=== PATIENT | female | born 1985 | race Caucasian/White ===

== ENCOUNTER → 2019-12-18 12:31 | Outpatient (BNVA) | payer MEDICAID, SELFPAY | PROVIDERS: Family Provider Nurse Practitioner Family; PCP Nurse Practitioner Family; Visit Provider Anesthesiology Pain Medicine | DX: M25.511 Pain in right shoulder (principal) | CPT/HCPCS: 99203; 99999 ==

== ENCOUNTER 2020-07-24 10:08 | Emergency (ER) | payer MEDICAID, SELFPAY ==
[2020-07-24 10:14] VITALS: BP 122/70; PULSE 85; RESP 18; TEMP 36.9; O2SAT 100; BMI 23.2
--- NOTE | 2020-07-24 10:21 | ED_ITS ---
HPI - Syncope General: Chief Complaint: Syncope Stated Complaint: syncope, fatigue, Time Seen by Provider: 07/24/20 10:14 History of Present Illness: HPI narrative: Is a 37-year-old female who comes to the ED with positive at-home test, fatigue and a brief episode of near syncope. Patient last period was June 21. She said it was only 2 days long and had very light bleeding, which is not like her normal periods. She took a test around June 23 or and it was positive. Patient says she has taken 19 test over the last month and all have been positive. She has not seen her OB provider yet. She has had some intermittent abdominal cramping over the past couple days but no vaginal bleeding or discharge. She contacted her OB office and they told her that she could come in here to the ED to get evaluated. Patient also says she had an episode of near syncope couple days ago. Patient describes driving down the road in the car and she started getting sick feeling and felt like she was going to pass out she pulled over. Patient says she never had syncopal episode but did feel like one was coming on. She reports not eating very much food that days leading up to near syncopal episode. She has not had any other near syncopal episodes since then. She had some UTI symptoms over a week ago, but those have since resolved. Patient says she is worried and concerned about her and symptoms. Denies fever, chills, chest pain, shortness of breath, nausea, dysuria, hematuria, constipation, diarrhea. Patient endorses one episode of emesis over the last month. Associated symptoms: Reports abdominal pain (intermittent abdom cramping); Deny chest pain, fever(s), headache(s) or nausea Review of Systems Const: Denies: fever(s), chills or fatigue Eyes: Denies: change in vision or eye discomfort ENMT: Denies: throat pain, odynophagia, nasal discharge or nasal congestion Card: Denies: chest pain, palpitations, edema, swelling of feet/ankles, dyspnea on exertion or orthopnea Resp: Denies: dyspnea, productive cough or non-productive cough GI: Reports: abdominal pain (intermittent abdom cramping) and vomiting ( 1 episode); Denies: nausea, diarrhea, constipation or hematochezia : Reports: amenorrhea (last period was May 21.) and other (positive at [facility] test); Denies: flank pain, dysuria or hematuria Musc: Denies: neck pain, back pain or extremity swelling Skin/Breast: Denies: rash or new lesions Neuro: Denies: headache(s), numbness in extremities or weakness in extremities PFSH ED PFSH: Medical History Chronic shoulder pain History of reduction of closed fracture (~02/25/14) Closed Reduction and percutaneous internal fixation with 7.0 cannulated screws times 2, 02/25/2014, by Dr Koch Primary osteoarthritis, right shoulder Tendinopathy of right rotator cuff Family History Grandmother Hypertension PATERNAL Father Cancer Mother Heart disease Other Diabetes Social History Smoking and tobacco status: former smoker Alcohol intake: never History of recent travel: No Female Reproductive History: Date of last menstrual period: 06/21/20 Physical Exam Const: COMMON NORMALS: no acute distress, patient oriented x3, healthy appearing and alert GENERAL APPEARANCE: cooperative, comfortable and anxious (pt appeared very worried about and symptoms.) HENMT: COMMON NORMALS: normocephalic HEAD & SCALP: normocephalic MOUTH: Normal oral and palatal mucosa present THROAT: posterior oropharynx normal and uvula midline Neck/C-Spine: COMMON NORMALS: supple GENERAL: Yes normal visual inspection Resp: COMMON NORMALS: normal respiratory effort, No retractions, No use of accessory muscles and clear to auscultation bilaterally AUSCULTATION: clear to auscultation bilaterally Cardio: COMMON NORMALS: regular rate, regular rhythm, S1 normal heart sound present, S2 normal heart sound present, No gallops present (Cardio), No clicks present (Cardio), No murmurs present (Cardio) and Peripheral pulses 2+ throughout RATE: regular rate RHYTHM: regular rhythm HEART SOUNDS: S1 normal heart sound present and S2 normal heart sound present PERIPHERAL PULSES: Peripheral pulses 2+ throughout GI: COMMON NORMALS: Normal to inspection, nondistended, normoactive bowel sounds present, Soft to palpation, non-tender and no masses PALPATION: Yes Soft to palpation : COMMON NORMALS: Yes no CVA tenderness BLADDER/KIDNEY EXAM: Yes no CVA tenderness Back/Pelvis: COMMON NORMALS: no CVA tenderness Extremity: COMMON NORMALS: normal to inspection and no pedal edema Neuro: COMMON NORMALS: patient oriented x3 and moves all extremities SENSORIUM/ORIENTATION: Yes alert Skin: COMMON NORMALS: no rashes or lesions noted GENERAL SKIN EXAM: no rashes or lesions noted Course Vital Signs: Vital signs: Vital Signs Temperature 98.4 F 07/24/20 10:14 Pulse Rate 62 07/24/20 13:10 Respiratory Rate 14 07/24/20 13:10 Blood Pressure 116/73 07/24/20 13:10 Pulse Oximetry 99 07/24/20 13:10 MDM - Syncope MDM Narrative: Medical decision making narrative: Patient is a 37-year-old female comes to the ED with positive at home test and near syncopal episode. Patient's last period was on June 21. Patient describes having some intermittent abdominal pain but denies any vaginal bleeding or discharge. She also describes having a near syncopal episode where she felt sick and like she was going to pass out. Patient never had any loss of consciousness and has not had any other episodes since. She contacted Dr. Benjamin's office and told them about symptoms and positive test and they referred her to come to the ED to be evaluated. Patient appears in no acute distress or pain. She is very anxious and worried about this . White blood cell count 10.7 and rest of CBC, CMP and UA are unremarkable. hCG quant is 1853. EKG showed normal sinus rhythm with no ST segment elevation or depression seen. Ultrasound OB showed no definite intrauterine and recommends a follow-up ultrasound in 1 week and clinical evaluation to rule out ectopic . patient was discharged and told to call [facility] doctor's office to set up a follow-up appointment within the next week. I told patient that ultrasound radiologist recommended a follow-up ultrasound to be performed in a week to rule out any ectopic . I recommended that she get her hCG levels checked in another 3 days. Return to ED precautions given. Patient understood and agreed with plan. Lab Data: Attestation: I reviewed the patient's lab results. Labs: Lab Results 07/24/20 07/24/20 07/24/20 Range/Units 10:35 10:35 10:42 WBC 10.7 H (4.0-10.0) 10^3/ uL RBC 4.40 (4.1-5.3) 10^6/u L Hgb 12.8 (11.5-15.3) g/dL Hct 40.0 (37.0-47.0) % MCV 90.9 (81-99) fL MCH 29.1 (28.0-34.0) pg MCHC 32.0 (30.0-36.0) g/dL RDW 13.0 (12.1-15.1) % Plt Count 277 (130-400) 10^3/c mm MPV 9.4 (7.4-10.4) fL Neut % (Auto) 46.0 % Lymph % (Auto) 37.7 % Atlantic % (Auto) 8.7 % Eos % (Auto) 6.4 % Baso % (Auto) 0.7 % Neut # (Auto) 4.92 (1.8-7.7) 10^3/u L Lymph # (Auto) 4.0 (0.8-4.8) 10^3/u L Atlantic # (Auto) 0.9 (0.2-0.9) 10^3/u L Eos # (Auto) 0.7 (0.0-0.8) 10^3/u L Baso # (Auto) 0.1 (0.0-0.1) 10^3/u L Nucleated RBC % (a uto) 0 % Nucleated RBCs # 0.0 /100WBC Sodium 137 (136-145) mmol/L Potassium 4.1 (3.5-5.1) mmol/L Chloride 104 (98-107) mmol/L Carbon Dioxide 22 (22-29) mmol/L Anion Gap 15.1 (5-19) BUN 10 (6-20) mg/dL Creatinine 0.4 L (0.5-0.9) mg/dL GFR Calculation 177.7 H (90-130) mL/min Glucose 88 (65-115) mg/dL Calculated Osmolal ity 279 L (285-295) mOsm/k g Calcium 9.4 (8.5-10.5) mg/dL Total Bilirubin 0.2 (0.15-1.2) mg/dL AST 22 (0-32) U/L ALT 25 (0-33) U/L Alkaline Phosphata se 42 (35-105) IU/L Total Protein 6.6 (6.6-8.7) g/dL Albumin 4.2 (3.5-5.2) g/dL Globulin 2.4 (1.3-4.6) g/dL Ser , Alexis i-Qnt 1853.00 mIU/mL Urine Color Yellow (Yellow) Urine Appearance Clear (CLEAR) Urine pH 6 (5-7) Ur Specific Gravit y 1.020 (1.005-1.030) Urine Protein Neg (Negative) Urine Glucose (UA) Norm (Normal) Urine Ketones Negative (Negative) Urine Blood Neg (Negative) Urine Nitrate Negative (Negative) Urine Bilirubin Neg (Negative) Urine Urobilinogen Neg (Negative) mg/dL Ur Leukocyte Lucy ase Negative (Negative) Imaging Data^: US OB: Attestation: I personally reviewed and interpreted this imaging study as follows: Radiologist's impression: [place] [id number] Ultrasound Report Signed Patient: Jazmin Martinez Unit #: [id number] : 08/29/1982 Age/Sex: 37 / F ADM Date: 07/24/20 Loc: ER Room/Bed: Attending Dr: Ordering Provider/Ordering MD: Fortino Morrell Date of Service: 07/24/20 Procedure(s): US OB <=14 wk fetus w transvag Accession Number(s): [id number] Report Number: [id number] WS: [id number] OB ultrasound, 07/24/2020 Clinical Data: with abdominal cramping Comparison: None. Findings: The cervical length is 3.16 cm. There is not a definite interuterine . No pole or heart motion was identified.. There is a yolk sac or an 0.34 cm There is a possible gestational sac within the uterus measuring 0.91 x 0.95 x 1.43 cm. The left ovary measured 2.2 cm x 3.6 cm x 2.7 cm. There is a simple cyst in the left ovary measuring 0.90 x 1.30 x 1.30 cm. The right ovary measured 2.7 cm x 3.0 cm x 3.0 cm. There are 2 cysts in the right ovary, one measuring 0.97 x 1.16 x 1.36 cm and the other 1.52 x 1.65 x 1.90 cm. The smaller cyst has a slightly irregular wall which is thickened. There is a moderate amount of fluid in the cul-de-sac. US/US OB <=14 wk fetus w transvag Impression: No definite intrauterine and recommend follow-up ultrasound in one week and clinical evaluation to rule out ectopic . Dictated By: Silvina Oh MD Signed By: Silvina Oh MD Signed Date/Time: 07/24/20 1257 DD/ 1242 EKG Data^: EKG 1: Attestation: I personally reviewed and interpreted this EKG as follows: EKG interpretation date: 07/24/20 Interpretation: Normal sinus rhythm with some sinus arrhythmia present. [address] segment elevation or depression seen. Discharge Plan Discharge Patient Disposition: Home Clinical Impression: Vasovagal near syncope Qualifiers: Weeks of gestation: less than 8 weeks Qualified Code(s): Z3A.01 - Less than 8 weeks gestation of Condition: Stable Prescriptions: No Action 28 mg iron- 800 mcg Tablet 1 tab PO DAILY RF: 0 Discharge Orders: Discharge Order (Routine); Ordered 07/24/20 Ordered By: Fortino Morrell Referrals: Monse Vogt APN [Primary Care Provider] - Discharge Diet: Regular Discharge Activity: Increase activity as tolerated Patient Instructions: (ED), Diet (GEN) Activity Restrictions/Additional Instructions: Follow-up with mineral mixer in a week for repeat ultrasound. have hCG quant lab performed in 3 days to monitor progression of early . Continue taking vitamins. Return to the ER or your medical provider if condition worsens. Please read and understand discharge instructions. If any questions, please ask. Coding Level of Care Code ED Operator Cavity Pump for Chg Fwd Exam Comprehensive
[2020-07-24 10:24] VITALS: BP 126/85; PULSE 89; RESP 18; O2SAT 96
--- NOTE | 2020-07-24 10:30 | US_ITS ---
WS: [id number] OB ultrasound, 07/24/2020 Clinical Data: with abdominal cramping Comparison: None. Findings: The cervical length is 3.16 cm. There is not a definite interuterine . No pole or heart motion was identified.. There is a yolk sac or an 0.34 cm There is a possible gestational sac within the uterus measuring 0.9 1 x 0.95 x 1.43 cm. The left ovary measured 2.2 cm x 3.6 cm x 2.7 cm. There is a simple cyst in the left ovary measuring 0.90 x 1.30 x 1.30 cm. The right ovary measured 2.7 cm x 3.0 cm x 3.0 cm. There are 2 cysts in the right ovary, one measurin g 0.97 x 1.16 x 1.36 cm and the other 1.52 x 1.65 x 1.90 cm. The smaller cyst has a slightly irregula r wall which is thickened. There is a moderate amount of fluid in the cul-de-sac. US/US OB <=14 wk fetus w transvag Impression: No definite intrauterine and recommend follow-up ultrasound in one we ek and clinical evaluation to rule out ectopic .
--- NOTE | 2020-07-24 10:30 | ECG_ITS ---
[facility] Test Date: 2020-07-24 Pat Name: Jazmin Martinez Department: Room: Gender: Female Map Clerk: : 1982-08-29 Requested By: Fortino Morrell Order Number: [id number] Hebert MD: Oleg Barkley M.D. Measurements Intervals [place] Rate: 68 P: 55 FL: 141 QRS: 75 QRSD: 81 T: 42 QT: 358 QTc: 382 Interpretive Statements SINUS RHYTHM WITH SINUS ARRHYTHMIA No previous ECG available for comparison Electronically Signed On 07-24-2020 14:58:13 CDT by Oleg Barkley M.D. [id number]
--- NOTE | 2020-07-24 10:42 | PC.NURSE ---
States smells cause nausea, denies any and all pain. Very anxious, talks a lot.
[2020-07-24] MEDS: sodium chloride 0.9% 500 ML IV (10:47)
[2020-07-24 10:56] LABS: Basophils # 0.1 10^3/uL (0.0-0.1); Basophils % 0.7 %; Eosinophils # 0.7 10^3/uL (0.0-0.8); Eosinophils % 6.4 %; Hemoglobin 12.8 g/dL (11.5-15.3); Lymphocytes % 37.7 %; Mean Corpuscular Hemoglobin 29.1 pg (28.0-34.0); Mean Corpuscular Volume 90.9 fL (81-99); Mean Platelet Volume 9.4 fL (7.4-10.4); Monocytes # 0.9 10^3/uL (0.2-0.9); Monocytes % 8.7 %; Neutrophils # 4.92 10^3/uL (1.8-7.7); Nucleated Red Blood Cells % 0 %; Platelet Count 277 10^3/cmm (130-400); White Blood Count 10.7 10^3/uL (4.0-10.0)
[2020-07-24 11:03] LABS: Add Urine Microscopic? NO
[2020-07-24 11:20] LABS: Alanine Aminotransferase 25 U/L (0-33); Albumin Level 4.2 g/dL (3.5-5.2); Alkaline Phosphatase 42 IU/L (35-105); Aspartate Amino Transferase 22 U/L (0-32); Blood Urea Nitrogen 10 mg/dL (6-20); Calcium 9.4 mg/dL (8.5-10.5); Carbon Dioxide 22 mmol/L (22-29); Chloride 104 mmol/L (98-107); Creatinine Clr Calc Pharmacy 152.0165; Globulin 2.4 g/dL (1.3-4.6); Glomerular Filtration Rate 177.7 mL/min (90-130); Glucose 88 mg/dL (65-115); Osmolality Calculated 279 mOsm/kg (285-295); Sodium 137 mmol/L (136-145); Total Bilirubin 0.2 mg/dL (0.15-1.2); Total Protein 6.6 g/dL (6.6-8.7)
[2020-07-24 11:22] LABS: Anion Gap 15.1 (5-19); Potassium 4.1 mmol/L (3.5-5.1)
[2020-07-24 11:22] LABS: Bilirubin Urine Neg (Negative); Blood Urine Neg (Negative); Glucose Urine UA Norm (Normal); Ketones Urine Negative (Negative); Leukocyte Esterase Urine Negative (Negative); Nitrate Urine Negative (Negative); Protein Urine Neg (Negative); Urine Appearance Clear (CLEAR); Urine Color Yellow (Yellow); Urobilinogen Urine Neg (Negative); pH Urine 6 (5-7)
[2020-07-24 12:14] VITALS: BP 141/75; PULSE 73; RESP 14; O2SAT 100
[2020-07-24 13:10] VITALS: BP 116/73; PULSE 62; RESP 14; O2SAT 99
--- NOTE | 2020-07-27 14:51 | DCPLANNER ---
Admissions called case loader operator asking about order for a repeat HCG. Patient was at hospital for her repeat HCG levels, case loader operator did not have an order left for blood work. curriculum manager got an order signed and took the order to main admissions for patient to have blood work.
== END 2020-07-24 13:21 | disposition home or self-care (01) ==
PROVIDERS: Emergency Provider Physician Assistant; PCP Nurse Practitioner Family
DX: O26.891 Other specified pregnancy related conditions, first trimester (principal); R55 Syncope and collapse; Z3A.01 Less than 8 weeks gestation of pregnancy; Z87.891 Personal history of nicotine dependence
CPT/HCPCS: 12345; 76801; 76817; 80053; 81003; 84702; 85025; 93005; 96360; 99283; 99284; J7040

== ENCOUNTER 2020-07-27 14:53 | Outpatient (CLI) | payer MEDICAID, SELFPAY ==
[2020-07-27 16:29] LABS: HCG, Serum Qual Positive (Negative)
== END 2020-07-27 14:54 | disposition home or self-care (01) ==
LOC: LAB 14:56
PROVIDERS: Obstetrics & Gynecology; PCP Nurse Practitioner Family; Visit Provider Physician Assistant
DX: Z34.90 Encounter for supervision of normal pregnancy, unspecified, unspecified trimester (principal)
CPT/HCPCS: 84703

== ENCOUNTER → 2020-08-31 13:39 | Outpatient (BNVA) | payer MEDICAID, SELFPAY | PROVIDERS: PCP Nurse Practitioner Family; Visit Provider Obstetrics & Gynecology | DX: O09.521 Supervision of elderly multigravida, first trimester (principal); Z3A.01 Less than 8 weeks gestation of pregnancy | CPT/HCPCS: 80053; 80307; 84315; 84443; 85027; 86592; 86762; 86803; 86850; 86900; 87340; 87806 ==

== ENCOUNTER → 2020-09-16 10:38 | Outpatient (BNVA) | payer MEDICAID, SELFPAY | PROVIDERS: PCP Nurse Practitioner Family; Visit Provider Obstetrics & Gynecology | DX: Z34.90 Encounter for supervision of normal pregnancy, unspecified, unspecified trimester (principal) | CPT/HCPCS: 84315; 87491; 87522; 87591; 88175 ==

== ENCOUNTER → 2020-10-14 13:06 | Outpatient (BNVA) | payer MEDICAID, SELFPAY | PROVIDERS: PCP Nurse Practitioner Family; Visit Provider Nurse Practitioner Women's Health | DX: O99.340 Other mental disorders complicating pregnancy, unspecified trimester (principal); F32.9 Major depressive disorder, single episode, unspecified; O09.521 Supervision of elderly multigravida, first trimester | CPT/HCPCS: 82105; 84315 ==

== ENCOUNTER → 2020-11-23 16:00 | Outpatient (BNVA) | payer MEDICAID, SELFPAY | PROVIDERS: PCP Nurse Practitioner Family; Visit Provider Obstetrics & Gynecology | DX: O09.892 Supervision of other high risk pregnancies, second trimester (principal) | CPT/HCPCS: 76805 ==

== ENCOUNTER → 2020-11-30 15:49 | Outpatient (BNVA) | payer MEDICAID, SELFPAY | PROVIDERS: PCP Nurse Practitioner Family; Visit Provider Obstetrics & Gynecology | DX: O99.612 Diseases of the digestive system complicating pregnancy, second trimester (principal); K21.9 Gastro-esophageal reflux disease without esophagitis | CPT/HCPCS: 80053; 84315 ==

== ENCOUNTER → 2021-01-08 14:30 | Outpatient (BNVA) | payer MEDICAID, SELFPAY | PROVIDERS: PCP Nurse Practitioner Family; Visit Provider Obstetrics & Gynecology | DX: O09.892 Supervision of other high risk pregnancies, second trimester (principal); Z3A.00 Weeks of gestation of pregnancy not specified | CPT/HCPCS: 82950; 84315; 85027 ==

== ENCOUNTER → 2021-02-05 12:09 | Outpatient (BNVA) | payer MEDICAID, SELFPAY | PROVIDERS: PCP Nurse Practitioner Family; Visit Provider Obstetrics & Gynecology | DX: O09.893 Supervision of other high risk pregnancies, third trimester (principal); Z87.59 Personal history of other complications of pregnancy, childbirth and the puerperium; Z3A.00 Weeks of gestation of pregnancy not specified | CPT/HCPCS: 83986; 84315 ==

== ENCOUNTER → 2021-02-19 08:18 | Outpatient (BNVA) | payer MEDICAID, SELFPAY | PROVIDERS: PCP Nurse Practitioner Family; Visit Provider Obstetrics & Gynecology | DX: O09.893 Supervision of other high risk pregnancies, third trimester (principal); L29.9 Pruritus, unspecified; O99.713 Diseases of the skin and subcutaneous tissue complicating pregnancy, third trimester | CPT/HCPCS: 82239; 84315 ==

== ENCOUNTER → 2021-03-01 11:20 | Outpatient (BNVA) | payer MEDICAID, SELFPAY | PROVIDERS: PCP Nurse Practitioner Family; Visit Provider Obstetrics & Gynecology | DX: O09.893 Supervision of other high risk pregnancies, third trimester (principal); Z3A.00 Weeks of gestation of pregnancy not specified | CPT/HCPCS: 84315; 87081 ==

== ENCOUNTER 2021-03-19 12:57 | Inpatient (IN) | payer MEDICAID, SELFPAY ==
[2021-03-19] VITALS (20 sets, daily range): BP systolic 134–175; BP diastolic 68–90; PULSE 48–82; RESP 16–20; TEMP 36.6–36.8; BMI 22.6
--- NOTE | 2021-03-19 13:30 | PC.NURSE ---
Verbal permission to give her mother an update that she and the baby were stable post delivery. Permission given by patient. Stacy Luo RN was witness.
--- NOTE | 2021-03-19 13:35 | P.PCNOB_ITS ---
Delivery Note: Date of delivery: March 19, 2021 Procedure: Precipitous Op report anesthesia: None Delivering Physician: Alexy Estimated blood loss (mL): 20 Delivery: The patient had complete cervical dilation and began to push. The head delivered in the MARNIE position over an intact perineum under no anesth esia. The nose and mouth were bulb suctioned. The shoulders and body delivered atraumatically. The baby was placed onto the mother's abdomen. The cord was clamped and cut. Cord blood was obtained. The placenta delivered spontaneously. It was inspected and found to be intact. Inspection of the perineum revealed bilateral periurethral lacerations and a second-degree perineal laceration. Estimated blood loss 20 mL. Apgars on baby were 8 at 1 minute and 8 at 5 minutes. Weight of baby is 6 pounds 4 ounces. Mother was stable post delivery. Baby was requiring oxygen. The patient had a precipitous delivery and received NO doses of antibiotics. She is GBS +. Coding Level of Care Code Acute Needle Punch Machine Operator for Kanwal Diaz
[2021-03-19] MEDS: oxytocin 30 UNIT/500 ML BAG 600 UNIT IV (13:52)
[2021-03-19] MEDS: ketorolac 30 mg/mL INJ 60 MG IM (13:56)
[2021-03-19 14:19] LABS: Basophils # 0.1 10^3/uL (0.0-0.1); Basophils % 0.7 %; Eosinophils # 0.2 10^3/uL (0.0-0.8); Eosinophils % 1.3 %; Hematocrit 42.3 % (37.0-47.0); Hemoglobin 13.9 g/dL (11.5-15.3); Lymphocytes # 3.6 10^3/uL (0.8-4.8); Lymphocytes % 23.1 %; Mean Corpuscular HGB Conc 32.9 g/dL (30.0-36.0); Mean Corpuscular Hemoglobin 26.9 pg (28.0-34.0); Monocytes % 6.4 %; Neutrophils % 67.6 %; Nucleated Red Blood Cells % 0 %; Platelet Count 351 10^3/cmm (130-400); Red Blood Count 5.16 10^6/uL (4.1-5.3); Red Cell Distribution Width 13.5 % (12.1-15.1); White Blood Count 15.6 10^3/uL (4.0-10.0)
[2021-03-19 14:31] LABS: Amphetamines Screen Urine Negative (Negative); Barbiturates Screen Urine Negative (Negative); Benzodiazepines Screen Urine Negative (Negative); Cocaine Screen Urine Negative (Negative); Opiate Screen Urine Positive (Negative); PCP Screen Urine Negative (Negative); THC Screen Urine Positive (Negative)
[2021-03-19] MEDS: HYDROcodone-acetaminophen 5-325 mg Tablet PO ×2 (15:27→21:11)
--- NOTE | 2021-03-19 15:51 | PC.NURSE ---
Initial IV started in triage by SAHARA Schwartz. Infiltrated with pitocin bolus. Fluids stopped and IV removed. IV replaced by Dr Horne. IV site secured well with tape and coban.
[2021-03-19] MEDS: LORazepam 0.5 mg Tablet 0.25 MG PO (16:12)
[2021-03-19] MEDS: lidocaine 2% INJ 20 mL INJECTION (16:30)
[2021-03-19] MEDS: docusate sodium 100 mg Capsule PO (17:27)
[2021-03-19] MEDS: benzocaine-menthol 78 gm Canister 1 SPRAY TOPICAL (17:27)
--- NOTE | 2021-03-19 18:41 | PC.NURSE ---
pt ambulated to room OB10. oriented to room/call light
[2021-03-19] MEDS: ibuprofen 800 mg tablet PO (21:11)
[2021-03-20] VITALS: BP 150/70; PULSE 80; RESP 16; TEMP 36.8
[2021-03-20 05:00] VITALS: BP 160/70; PULSE 71; RESP 16
[2021-03-20] MEDS: LORazepam 0.5 mg Tablet 0.25 MG PO ×3 (05:18→22:00)
[2021-03-20] MEDS: HYDROcodone-acetaminophen 5-325 mg Tablet PO ×2 (05:18→22:00)
[2021-03-20 05:32] LABS: Hematocrit 33.6 % (37.0-47.0); Hemoglobin 10.5 g/dL (11.5-15.3); Mean Corpuscular HGB Conc 31.3 g/dL (30.0-36.0); Mean Corpuscular Hemoglobin 26.7 pg (28.0-34.0); Mean Corpuscular Volume 85.5 fL (81-99); Mean Platelet Volume 9.9 fL (7.4-10.4); Platelet Count 312 10^3/cmm (130-400); Red Blood Count 3.93 10^6/uL (4.1-5.3); Red Cell Distribution Width 13.5 % (12.1-15.1); White Blood Count 13.5 10^3/uL (4.0-10.0)
[2021-03-20 06:25] VITALS: BP 149/75
[2021-03-20 10:15] VITALS: BP 158/84; PULSE 59; RESP 17
[2021-03-20] MEDS: prenatal vitamin Capsule 1 CAP PO (10:15)
[2021-03-20] MEDS: ibuprofen 800 mg tablet PO ×3 (10:15→21:05)
[2021-03-20] MEDS: docusate sodium 100 mg Capsule PO ×2 (10:15→18:23)
--- NOTE | 2021-03-20 14:04 | P.PN_ITS ---
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 No concerns. Her blood pressures have been very labile. She was taking xanax previously that was not hers as well as hydrocodone. I have been giving her Ativan while in the hospital and her blood pressures are controlled with that. She has a strong history of anxiety, but was taking a family members medication. Labor: Station: +3 Amniotic Membrane Status: Intact Vitals/I&O/Wt Last Vital Signs Temp 98.2 F 03/20/21 00:00 Pulse 59 L 03/20/21 10:15 Resp 17 03/20/21 10:15 BP 158/84 03/20/21 10:15 03/19/21 03/20/21 03/20/21 22:59 06:59 14:59 Intake Total 700 / 700 Output Total 400 / 400 Balance 300 / 300 Weight last 48 hrs Weight 120 lb Physical Exam Const: COMMON NORMALS: no acute distress, average body habitus, patient oriented x3, no limitations, healthy appearing, alert and well nourished GENERAL APPEARANCE: cooperative, comfortable, well kempt and well developed ORIENTATION/CONSCIOUSNESS: Yes awake, Yes oriented to person, Yes oriented to place and Yes oriented to time Resp: COMMON NORMALS: normal respiratory effort EFFORT & INSPECTION: Yes able to speak in complete sentences GI: COMMON NORMALS: Soft to palpation and non-tender PALPATION: Yes Soft to palpation Extremity: COMMON NORMALS: no clubbing, cyanosis or edema Neuro: COMMON NORMALS: patient oriented x3 SENSORIUM/ORIENTATION: Yes alert, Yes oriented to person, Yes oriented to place and Yes oriented to time Psych: APPEARANCE: Yes well kempt Data : 03/20/21 05:20 A&P Assessment and plan (1) Multigravida of advanced maternal age: PPD#1 Patient is doing well. DFS has been to see her and they are making a plan for her to keep her children. plan to continue with ativan to control anxiety and therefore control blood pressure Status: Acute Qualifiers: Trimester: first trimester Qualified Code(s): O09.521 - Supervision of elderly multigravida, first trimester (2) Depression affecting : Status: Acute (3) Hepatitis C: Status: Acute Qualifiers: Viral hepatitis chronicity: acute Hepatic coma status: without hepatic coma Qualified Code(s): B17.10 - Acute hepatitis C without hepatic coma (4) Viral hepatitis complicating : Status: Acute Qualifiers: Trimester: second trimester Qualified Code(s): O98.412 - Viral hepatitis complicating , second trimester (5) Supervision of other high risk pregnancies, third trimester: Status: Acute (6) Group B Streptococcus carrier state affecting : Status: Acute Attestations Medical Necessity Statement*: The patient is . She will be spending two midnights in the hospital. Coding Level of Care Code Acute Senior Systems Engineer for g Fwd Diagnoses Multigravida of advanced maternal age O09.521 Trimester: first trimester Depression affecting O99.340; F32.9 Hepatitis C B17.10 Viral hepatitis chronicity: acute Hepatic coma status: without hepatic coma Viral hepatitis complicating O98.412 Trimester: second trimester Supervision of other high risk pregnancies, third trimester O09.893 Group B Streptococcus carrier state affecting O99.820
[2021-03-20 16:20] VITALS: BP 155/73; PULSE 54; RESP 14; TEMP 36.4
[2021-03-20 21:00] VITALS: BP 151/72; PULSE 64; RESP 18; TEMP 36.7
[2021-03-21] VITALS (11 sets, daily range): BP systolic 149–197; BP diastolic 79–95; PULSE 54–88; RESP 15–17; TEMP 36.8
[2021-03-21] MEDS: LORazepam 0.5 mg Tablet 0.25 MG PO (04:24)
[2021-03-21] MEDS: HYDROcodone-acetaminophen 5-325 mg Tablet PO (04:24)
[2021-03-21 04:47] LABS: Basophils # 0.1 10^3/uL (0.0-0.1); Basophils % 0.7 %; Eosinophils # 0.5 10^3/uL (0.0-0.8); Eosinophils % 3.6 %; Hematocrit 32.2 % (37.0-47.0); Hemoglobin 10.5 g/dL (11.5-15.3); Lymphocytes # 5.1 10^3/uL (0.8-4.8); Lymphocytes % 37.7 %; Mean Corpuscular HGB Conc 32.6 g/dL (30.0-36.0); Mean Corpuscular Hemoglobin 27.9 pg (28.0-34.0); Mean Corpuscular Volume 85.4 fL (81-99); Mean Platelet Volume 10.2 fL (7.4-10.4); Monocytes # 0.8 10^3/uL (0.2-0.9); Monocytes % 6.2 %; Neutrophils # 6.78 10^3/uL (1.8-7.7); Neutrophils % 50.2 %; Nucleated Red Blood Cells % 0 %; Platelet Count 367 10^3/cmm (130-400); Red Blood Count 3.77 10^6/uL (4.1-5.3); Red Cell Distribution Width 13.8 % (12.1-15.1); White Blood Count 13.5 10^3/uL (4.0-10.0)
[2021-03-21 05:09] LABS: Slide Review Slide Review Perform
[2021-03-21 05:12] LABS: Urine Creatinine 34 mg/dL (28-217); Urine Protein Random 9 mg/dL
[2021-03-21 05:13] LABS: UPRO/UCREAT Ratio 0.26 mg/mg CR
[2021-03-21 05:14] LABS: Add Urine Microscopic? YES; Bilirubin Urine Neg (Negative); Blood Urine 3+ (Negative); Glucose Urine UA Norm (Normal); Ketones Urine Negative (Negative); Leukocyte Esterase Urine Negative (Negative); Nitrate Urine Negative (Negative); Protein Urine Neg (Negative); Specific Gravity, Urine 1.015 (1.005-1.030); Urine Appearance Clear (CLEAR); Urine Color Yellow (Yellow); Urobilinogen Urine Norm (Negative); pH Urine 7 (5-7)
[2021-03-21 05:15] LABS: Add Urine Culture? No; Bacteria Urine TRACE /hpf; RBC Urine >100 /hpf (0-2); Squamous Epithelial Cell Urine 15-25 /hpf (0-5); WBC Urine 0-4 /hpf (0-5)
[2021-03-21 05:15] LABS: Alkaline Phosphatase 91 IU/L (35-105); Blood Urea Nitrogen 8 mg/dL (6-20); Calcium 8.4 mg/dL (8.5-10.5); Carbon Dioxide 24 mmol/L (22-29); Chloride 105 mmol/L (98-107); Globulin 2.8 g/dL (1.3-4.6); Glomerular Filtration Rate 179.6 mL/min (90-130); Glucose 91 mg/dL (65-115); Osmolality Calculated 288 mOsm/kg (285-295); Sodium 140 mmol/L (136-145); Total Bilirubin 0.2 mg/dL (0.15-1.2); Total Protein 5.8 g/dL (6.6-8.7); Uric Acid 5.4 mg/dL (2.4-5.7)
[2021-03-21 05:41] LABS: Anion Gap 15.1 (5-19); Potassium 4.1 mmol/L (3.5-5.1)
--- NOTE | 2021-03-21 05:53 | ECG_ITS ---
[facility] Test Date: 2021-03-21 Pat Name: Jazmin Martinez Department: Room: OB10 Gender: Female Acoustical Installer: shanthi CRONIN: 1985 Requested By: Liyah Purcell Order Number: [id number] Anup MD: Becca Corrales M.D. Measurements Intervals [place] Rate: 43 P: 18 NM: 131 QRS: 63 QRSD: 77 T: 55 QT: 431 QTc: 368 Interpretive Statements SINUS BRADYCARDIA Compared to ECG 07/24/2020 10:35:26 Sinus rhythm no longer present Sinus arrhythmia no longer present Electronically Signed On 03-21-2021 11:40:27 CDT by Becca Corrales M.D. [id number]
[2021-03-21 05:55] LABS: Aspartate Amino Transferase 21 U/L (0-32)
[2021-03-21 06:06] LABS: Alanine Aminotransferase 14 U/L (0-33)
[2021-03-21 06:23] LABS: Troponin(5th) Baseline 6 ng/L (0-10)
[2021-03-21 06:47] LABS: Troponin 5 2HR 7.91 ng/L (0-10); Troponin 5 2HR Delta 1.91 ABS# (0-10)
[2021-03-21] MEDS: hyDRALAzine 20 mg/mL INJ 1 mL 5 MG IVP ×2 (06:49→07:43)
--- NOTE | 2021-03-21 07:03 | USCV_ITS ---
Jazmin Martinez Age: 35 Gender: F : 1985 Exam Date: 03/21/2021 09:15 Ordering Phys: Nereyda Issa MD Technologist: SABRINA Exam Location: [facility] [place] Indication: hypertension, bradycardia, chest pain BP: 177 / 88 HR: 58 Rhythm: Sinus Technical Quality: Technically difficult study MEASUREMENTS (Male / Female) Normal Values 2D ECHO LV Diastolic Diameter PLAX 4.2 cm 4.2 - 5.9 / 3.9 - 5.3 cm LV Systolic Diameter PLAX 2.9 cm LV Chamber Size 4.2 cm IVS Diastolic Thickness 1.2 cm 0.6 - 1.0 / 0.6 - 0.9 cm IVS Systolic Thickness 1.4 cm LVPW Diastolic Thickness 1.0 cm 0.6 - 1.0 / 0.6 - 0.9 cm LVPW Systolic Thickness 1.2 cm RV Chamber Size 3.0 cm LVOT Diameter 1.6 cm LV Ejection Fraction 2D Teich 60.3 % LV Ejection Fraction MOD 2C 58.2 % LV Ejection Fraction 2C AL 60.6 % LA Diameter 2.5 cm LA Width 2.7 cm LA Height 5.0 cm RA Width 3.3 cm RA Height 5.4 cm Aorta at Sinotubular Diameter 2.0 cm M-MODE LV Diastolic Diameter MM 4.1 cm 4.2 - 5.9 / 3.9 - 5.3 cm LV Systolic Diameter MM 2.2 cm LV Ejection Fraction MM Teich 77.8 % IVS Diastolic Thickness MM 1.2 cm 0.6 - 1.0 / 0.6 - 0.9 cm IVS Systolic Thickness MM 1.6 cm LVPW Diastolic Thickness MM 1.3 cm 0.6 - 1.0 / 0.6 - 0.9 cm LVPW Systolic Thickness MM 1.6 cm RV Diastolic Diameter MM 3.2 cm Aortic Annulus Diameter 2.7 cm LA Ao Ratio MM 1.2 DOPPLER AV Peak Velocity 149.0 cm/s LVOT Peak Velocity 121.0 cm/s AV Area Cont Eq vti 1.7 cm squared AV Area Cont Eq pk 1.7 cm squared MV Area PHT 4.1 cm squared Mitral E to A Ratio 1.4 MV E' Velocity 62.5 cm/s Mitral E to MV E' Ratio 6.5 Mitral E to LV E' Lateral Ratio 5.7 Mitral E to LV E' Septal Ratio 7.7 TV Peak E Velocity 53.0 cm/s Right Atrial Pressure 8.0 mmHg PV Peak Velocity 80.0 cm/s RV Acceleration Time 0.1 s RV Ejection Time 0.3 s RV AcT/ET 0.4 FINDINGS Left Ventricle Normal left ventricular size, systolic function and wall thickness, with no regional wall motion abnormalities. Left ventricular ejection fraction is estimated at 65-70 %. Normal diastolic function. Right Ventricle Normal right ventricular size and systolic function. RVSP could not be calculated due to incomplete tricuspid regurgitation velocity profile. Right Atrium Normal right atrial size. Right atrial pressure estimated at 3 mm Hg. Left Atrium Normal left atrial size. Mitral Valve Structurally normal mitral valve. No mitral valve stenosis. No mitral valve regurgitation. Aortic Valve Aortic valve not well visualized. Probably trileaflet aortic valve. No aortic valve stenosis. No aortic valve regurgitation. Tricuspid Valve Structurally normal tricuspid valve. No tricuspid valve stenosis. Trace tricuspid valve regurgitation. Pulmonic Valve Structurally normal pulmonic valve. No pulmonary valve stenosis. No pulmonary valve regurgitation. Pericardium No pericardial effusion. Aorta Normal size aortic root and proximal ascending aorta. Normal sized inferior vena cava with normal respiratory variations. CONCLUSIONS 1. Normal left ventricular size, systolic function and wall thickness, with no regional wall motion abnormalities. Left ventricular ejection fraction is estimated at 65-70 %. Normal diastolic function. 2. Normal right ventricular size and systolic function. 3. No significant valvular abnormality. 4. No pericardial effusion. 5. No prior similar studies to compare. Becca Corrales MD (Electronically Signed) Final Date: 21 Mar 2021 10:11 S
--- NOTE | 2021-03-21 07:15 | PC.NURSE ---
Spoke to patient regarding transfer to CSU. Advised that she was being transferred to CSU due to high blood pressure, bradycardia and chest pain. Advised patient that baby would be kept in nursery with RN until she was cleared and able to return to the OB unit. Patient very tearful, states that No. I am not going. I am not leaving my baby. Asked patient is FOB could come back and stay in room with baby. Mother stated I don't even know. I don't want him or my family knowing any of this. I don't want to worry them, we aren't even that close. I'm not leaving my baby. Explained that we were concerned about her health and wanted to ensure she was ok. Patient states no I can't do this right now. I'm not leaving my baby. Asked if patient would allow tests to still be ran and physician's to consult and patient states that I don't know. I don't know right now. Encouraged patient to think about it and reiterated that we only wanted to ensure that she was ok and that her heart was healthy.
[2021-03-21 07:28] LABS: Magnesium 1.7 mg/dL (1.7-2.3)
--- NOTE | 2021-03-21 07:35 | CTR_ITS ---
PROCEDURE INFORMATION: Exam: CTA Chest Without And With Contrast Exam date and time: 03/21/2021 7:35 AM Age: 35 years old Clinical indication: Chest pain; Other: Back pain; Patient HX: Had baby 2 days ago; Additional info: HTN and back pain TECHNIQUE: Imaging protocol: Computed tomographic angiography of the chest without and with contrast. 3D rendering (Not supervised by radiologist): MIP and/or 3D reconstructed images were created by the technologist. Radiation optimization: All CT scans at this facility use at least one of these dose optimization techniques: automated exposure control; mA and/or kV adjustment per patient size (includes targeted exams where dose is matched to clinical indication); or iterative reconstruction. Contrast material: OMNI 350; Contrast volume: 95 ml; Contrast route: INTRAVENOUS (IV); COMPARISON: No relevant prior studies available. RADIATION DOSE METRICS: Total DLP (mGy-cm): 1042.34 FINDINGS: Pulmonary arteries: Normal. No pulmonary emboli. Aorta: Unremarkable. No aortic aneurysm. No aortic dissection. Lungs: Unremarkable. No consolidation. No masses. Pleural spaces: Unremarkable. No pneumothorax. No pleural effusion. Heart: Unremarkable. No cardiomegaly. No pericardial effusion. Lymph nodes: Unremarkable. No enlarged lymph nodes. Bones/joints: Mild chronic degenerative changes in the spine. Soft tissues: Bilateral breast implants. IMPRESSION: 1. No evidence of pulmonary embolus or aortic aneurysm/dissection. 2. No acute abnormalities are seen in the chest. PROCEDURE INFORMATION: Exam: CT Angiography Abdomen Without And With Contrast Exam date and time: 03/21/2021 7:35 AM Age: 35 years old Clinical indication: Chest pain; Other: Back pain; Patient HX: Had baby 2 days ago; Additional info: HTN and back pain TECHNIQUE: Imaging protocol: Computed tomographic angiography images of the abdomen without and with intravenous contrast material, including non-contrast images if performed. 3D rendering (Not supervised by radiologist): MIP and/or 3D reconstructed images were created by the technologist. Radiation optimization: All CT scans at this facility use at least one of these dose optimization techniques: automated exposure control; mA and/or kV adjustment per patient size (includes targeted exams where dose is matched to clinical indication); or iterative reconstruction. Contrast material: OMNI 350; Contrast volume: 95 ml; Contrast route: INTRAVENOUS (IV); COMPARISON: No relevant prior studies available. RADIATION DOSE METRICS: Total DLP (mGy-cm): 1042.34 FINDINGS: Aorta: No aortic aneurysm. No aortic dissection. Celiac trunk and mesenteric arteries: No occlusion or significant stenosis. Renal arteries: No occlusion or significant stenosis. Liver: Normal. No mass. Gallbladder and bile ducts: Normal. No calcified stones. No ductal dilation. Pancreas: Normal. No ductal dilation. Spleen: Normal. No splenomegaly. Adrenals: Normal. No mass. Kidneys and ureters: Normal. No hydronephrosis. Stomach and bowel: There is prominence of the amount of stool in the colon consistent with constipation. There is no evidence of bowel obstruction or dilatation. Lymph nodes: Unremarkable. No enlarged lymph nodes. Intraperitoneal space: Unremarkable. No free air. No significant fluid collection. Reproductive: The uterus is enlarged consistent with the state. Bones/joints: Unremarkable. No acute fracture. No dislocation. Soft tissues: Unremarkable. CT/CT angio chest abdomen IMPRESSION: 1. Enlarged uterus. 2. Prominent amount of stool in the colon. 3. No acute abnormalities are seen in the abdomen. Normal arteriogram. Radiation Dose CTDIVOL = (mGy): DLP = 1042.34~1042.34 (mGy-cm)
[2021-03-21 07:49] LABS: Thyroid Stimulating Hormone 3.07 uIU/mL (0.27-4.20)
--- NOTE | 2021-03-21 08:01 | ECG_ITS ---
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 Measurements Intervals [place] Rate: 61 P: 59 CO: 134 QRS: 62 QRSD: 74 T: 47 QT: 386 QTc: 392 Interpretive Statements SINUS RHYTHM POSSIBLE LEFT ATRIAL ENLARGEMENT [-0.1mV P WAVE IN V1/V2] Compared to ECG 03/21/2021 06:15:22 Sinus bradycardia no longer present Electronically Signed On 03-21-2021 12:18:43 CDT by Becca Corrales M.D. [id number]
[2021-03-21] MEDS: iohexol 350 mg/mL 100 mL Btl IV (08:03)
--- NOTE | 2021-03-21 08:36 | PC.NURSE ---
in room with pt at the beside
[2021-03-21 08:48] LABS: D Dimer <= 0.27 ug/mIFEU (0-0.59)
--- NOTE | 2021-03-21 09:03 | PM.OBGYPN ---
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 I received a call from the nurse at approximately 0500 hours. She had performed the patient vitals signs. The patient was asleep and her blood pressure was 189/83. She had last received ativan about 6 hours prior. Additionally, the patient was complaining of chest pain. Her O2 saturation was 95-99 and she denied SOA. Preeclampsia labs were performed as well as an EKG, spiral CT and cardiac enzymes. The patient's pulse was 43. She was given two doses of hydralazine and her blood pressure was 140's/80's. A cardilogy consult as well as hospitalist consult was obtained. A cardiac echo was ordered as well as TSH. She was to be transferred to telemetry, however, the patient refused to leave her baby. Initially, she was refusing the cardiac echo, but said that she would let them perform it. The baby is having significant withdrawl symptoms and will most likely be transferred to [place]. The patient has stated that she will NOT stay to be treated or monitored. She will leave [place] when her baby leaves. She will seek treatment at the same hospital as her baby. I tried reasoning with the patient that we were trying to do what was best for her. She still refused. She has been tolerating a regular diet, ambulating, voiding and is doing well from a standpoint. The cardiac issues are the only problem currently. Labor: Station: +3 Amniotic Membrane Status: Intact Vitals/I&O/Wt Last Vital Signs Temp 98.2 F 03/21/21 04:50 Pulse 54 L 03/21/21 04:50 Resp 15 03/21/21 04:50 BP 197/95 03/21/21 06:20 Weight last 48 hrs Weight 120 lb Physical Exam Const: COMMON NORMALS: average body habitus, patient oriented x3, no limitations, healthy appearing, alert and well nourished GENERAL APPEARANCE: well kempt, well developed, anxious and combative ORIENTATION/CONSCIOUSNESS: Yes awake, Yes oriented to person, Yes oriented to place and Yes oriented to time OTHER: The patient is agitated and being obstinate, not appreciating the consequences of what is possibly going on. She is not comprehending the potential seriousness of this situation. Neck/C-Spine: COMMON NORMALS: full ROM and supple Resp: COMMON NORMALS: normal respiratory effort EFFORT & INSPECTION: Yes able to speak in complete sentences GI: COMMON NORMALS: Soft to palpation and non-tender PALPATION: Yes Soft to palpation Extremity: COMMON NORMALS: no clubbing, cyanosis or edema Neuro: COMMON NORMALS: patient oriented x3 SENSORIUM/ORIENTATION: Yes alert, Yes oriented to person, Yes oriented to place and Yes oriented to time Psych: COMMON NORMALS: speech normal APPEARANCE: Yes grossly normal and Yes well kempt ATTITUDE: Yes uncooperative, Yes Belligerent attititude/behavior present and Yes agitated ACTIVITY/MOTOR BEHAVIOR: Yes appropriate eye contact and Yes restless SPEECH: Yes normal speech MOOD & AFFECT: Yes anxious THOUGHT PROCESS: Illogical thought process present THOUGHT CONTENT: Yes Normal thought content present ATTENTION/CONCENTRATION: Yes attention grossly intact and Yes concentration grossly intact INSIGHT: Poor insight present (Psych) JUDGEMENT: Fair judgement present (Psych) Data : 03/21/21 04:20 03/21/21 04:20 A&P Assessment and plan (1) Multigravida of advanced maternal age: Patient is doing well as far as a standpoint. Status: Acute Qualifiers: Trimester: first trimester Qualified Code(s): O09.521 - Supervision of elderly multigravida, first trimester (2) Bradycardia: cardiology and hospitalist consult patient refuses telemetry cardiac echo ordered. 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
--- NOTE | 2021-03-21 09:17 | PC.NURSE ---
pt inquiring where is at and if she could talk to him, educated he is not button sewer and Dr. Purcell is button sewer to take care of her.
--- NOTE | 2021-03-21 09:42 | P.DS_ITS ---
Discharge Providers Date of Admission: 03/19/21 12:57 Date of Discharge: March 21, 2021 Attending Provider at Admission: Liyah Purcell MD Attending Provider at Discharge: Liyah Purcell MD Primary Care Provider: Monse Vogt APN Diagnoses at Discharge Discharge Diagnosis (1) Multigravida of advanced maternal age: Status: Acute Qualifiers: Trimester: first trimester Qualified Code(s): O09.521 - Supervision of elderly multigravida, first trimester (2) Bradycardia: Status: Acute (3) Hypertension: Status: Acute (4) Supervision of other high risk pregnancies, third trimester: Status: Acute (5) Hepatitis C: Status: Acute Permanent problem details: Diagnosed in 2013 during . Qualifiers: Hepatic coma status: without hepatic coma Viral hepatitis chronicity: acute Qualified Code(s): B17.10 - Acute hepatitis C without hepatic coma Reason for Visit Reason for Visit: Abdominal pain Hospital Course Hospital Course The patient was admitted in active labor. She admitted to using xanax and norco during the that were not her own prescription. She was started on norco for pain and ativan for anxiety and to assure no withdrawl from either. On PPD#2, the patient had several blood pressures in the severe range as well as bradycardia at 43 and complaints of chest pain. She had preeclampsia labs, which were normal. Tsh was normal. EKG was mildly and non-specifically abnormal. She had a normal cardiac echo. She had a normal spiral CT. scan. The hospitalist and cardiology were consulted. The patient was to be moved to telemetry, however, the patient refused. She refused to be managed here, as her baby was being transferred due to withdrawl. The patient signed out AMA to go to [place] with her baby. She was started on amlodipine daily to manage her blood pressure. Discharge Data Data Completed and Pending: Completed Studies During Hospitalization Category Date Time Status CT angio chest ab domen Stat Cat Scan 03/21/21 07:35 Completed Pending at discharge Category Date Time Status Arterial Blood Ga s W/O Coox Stat Lab 03/21/21 09:07 Received Thyroid Stimulati ng Hormone Routine Lab 03/21/21 09:12 Ordered Troponin(5th) 6 h our. Timed Lab 03/21/21 10:20 Ordered CV echo complete* [id number] Stat Ultrasound 03/21/21 07:03 Ordered Labs from last 24 hours 03/21/21 03/21/21 03/21/21 09:07 08:21 06:20 WBC RBC Hgb Hct MCV MCH MCHC RDW Plt Count MPV Neut % (Auto) Lymph % (Auto) [place] % (Auto) Eos % (Auto) Baso % (Auto) Neut # (Auto) Lymph # (Auto) [place] # (Auto) Eos # (Auto) Baso # (Auto) Nucleated RBC % (a uto) Nucleated RBCs # D-Dimer <= 0.27 Specimen Type Pending Sample Site Pending ABG pH Pending ABG pCO2 Pending ABG pO2 Pending ABG HCO3 Pending ABG Base Excess Pending Mitchell Test Pending Hematocrit Pending O2 Delivery Device Pending Metal Riveting Machine Operator ID Pending Sodium Potassium Chloride Carbon Dioxide Anion Gap BUN Creatinine GFR Calculation Glucose Calculated Osmolal ity Uric Acid Calcium Magnesium Total Bilirubin AST ALT Alkaline Phosphata se Troponin T Baselin e Troponin T 120 Min red devil Delta Troponin T Total Protein Albumin Globulin TSH 3.07 Urine Color Urine Appearance Urine pH Ur Specific Gravit y Urine Protein Urine Glucose (UA) Urine Ketones Urine Blood Urine Nitrate Urine Bilirubin Urine Urobilinogen Ur Leukocyte Lucy ase Urine RBC Urine WBC Ur Squamous Epith Cells Amorphous Sediment Urine Bacteria U Random Total Pro tein Urine Creatinine Protein/Creatinin Ratio 03/21/21 03/21/21 03/21/21 06:20 06:20 04:40 WBC RBC Hgb Hct MCV MCH MCHC RDW Plt Count MPV Neut % (Auto) Lymph % (Auto) [place] % (Auto) Eos % (Auto) Baso % (Auto) Neut # (Auto) Lymph # (Auto) [place] # (Auto) Eos # (Auto) Baso # (Auto) Nucleated RBC % (a uto) Nucleated RBCs # D-Dimer Specimen Type Sample Site ABG pH ABG pCO2 ABG pO2 ABG HCO3 ABG Base Excess Mitchell Test Hematocrit O2 Delivery Device Metal Riveting Machine Operator ID Sodium Potassium Chloride Carbon Dioxide Anion Gap BUN Creatinine GFR Calculation Glucose Calculated Osmolal ity Uric Acid Calcium Magnesium 1.7 Total Bilirubin AST ALT Alkaline Phosphata se Troponin T Baselin e Troponin T 120 Min red devil 7.91 Delta Troponin T 1.91 Total Protein Albumin Globulin TSH Urine Color Yellow Urine Appearance Clear Urine pH 7 Ur Specific Gravit y 1.015 Urine Protein Neg Urine Glucose (UA) Norm Urine Ketones Negative Urine Blood 3+ H Urine Nitrate Negative Urine Bilirubin Neg Urine Urobilinogen Norm Ur Leukocyte Lucy ase Negative Urine RBC >100 H Urine WBC 0-4 H Ur Squamous Epith Cells 15-25 H Amorphous Sediment Not Reportable Urine Bacteria Trace U Random Total Pro tein Urine Creatinine Protein/Creatinin Ratio 03/21/21 03/21/21 03/21/21 04:40 04:20 04:20 WBC RBC Hgb Hct MCV MCH MCHC RDW Plt Count MPV Neut % (Auto) Lymph % (Auto) [place] % (Auto) Eos % (Auto) Baso % (Auto) Neut # (Auto) Lymph # (Auto) [place] # (Auto) Eos # (Auto) Baso # (Auto) Nucleated RBC % (a uto) Nucleated RBCs # D-Dimer Specimen Type Sample Site ABG pH ABG pCO2 ABG pO2 ABG HCO3 ABG Base Excess Mitchell Test Hematocrit O2 Delivery Device Metal Riveting Machine Operator ID Sodium 140 Potassium 4.1 Chloride 105 Carbon Dioxide 24 Anion Gap 15.1 BUN 8 Creatinine 0.4 L GFR Calculation 179.6 H Glucose 91 Calculated Osmolal ity 288 Uric Acid 5.4 Calcium 8.4 L Magnesium Total Bilirubin 0.2 AST 21 ALT 14 Alkaline Phosphata se 91 Troponin T Baselin e 6 Troponin T 120 Min red devil Delta Troponin T Total Protein 5.8 L Albumin 3.0 L Globulin 2.8 TSH Urine Color Urine Appearance Urine pH Ur Specific Gravit y Urine Protein Urine Glucose (UA) Urine Ketones Urine Blood Urine Nitrate Urine Bilirubin Urine Urobilinogen Ur Leukocyte Lucy ase Urine RBC Urine WBC Ur Squamous Epith Cells Amorphous Sediment Urine Bacteria U Random Total Pro tein 9 Urine Creatinine 34 Protein/Creatinin Ratio 0.26 03/21/21 04:20 WBC 13.5 H RBC 3.77 L Hgb 10.5 L Hct 32.2 L MCV 85.4 MCH 27.9 L MCHC 32.6 RDW 13.8 Plt Count 367 MPV 10.2 Neut % (Auto) 50.2 Lymph % (Auto) 37.7 [place] % (Auto) 6.2 Eos % (Auto) 3.6 Baso % (Auto) 0.7 Neut # (Auto) 6.78 Lymph # (Auto) 5.1 H [place] # (Auto) 0.8 Eos # (Auto) 0.5 Baso # (Auto) 0.1 Nucleated RBC % (a uto) 0 Nucleated RBCs # 0.0 D-Dimer Specimen Type Sample Site ABG pH ABG pCO2 ABG pO2 ABG HCO3 ABG Base Excess Mitchell Test Hematocrit O2 Delivery Device Metal Riveting Machine Operator ID Sodium Potassium Chloride Carbon Dioxide Anion Gap BUN Creatinine GFR Calculation Glucose Calculated Osmolal ity Uric Acid Calcium Magnesium Total Bilirubin AST ALT Alkaline Phosphata se Troponin T Baselin e Troponin T 120 Min red [place] Troponin T Total Protein Albumin Globulin TSH Urine Color Urine Appearance Urine pH Ur Specific Gravit y Urine Protein Urine Glucose (UA) Urine Ketones Urine Blood Urine Nitrate Urine Bilirubin Urine Urobilinogen Ur Leukocyte Lucy ase Urine RBC Urine WBC Ur Squamous Epith Cells Amorphous Sediment Urine Bacteria U Random Total Pro tein Urine Creatinine Protein/Creatinin Ratio Vitals: Last Vital Signs Temp 98.2 F 03/21/21 04:50 Pulse 54 L 03/21/21 04:50 Resp 15 03/21/21 04:50 BP 197/95 03/21/21 06:20 Discharge Plan Discharge Patient Disposition: Home Condition: Stable Prescriptions: New amlodipine 10 mg Tablet 10 mg PO DAILY Qty: 30 RF: 0 Continued omeprazole 20 mg tablet,delayed release (DR/EC) 20 mg PO DAILY PRNRF: 0 metoclopramide HCl 10 mg tablet 10 mg PO QID Qty: 120 RF: 5 fluoxetine 20 mg capsule 20 mg PO DAILY 30 Days Qty: 30 RF: 6 krill oil 500 mg capsule See Rx Instructions PO .COMPLEX RF: 0 PNV cmb#[id number]-ferrous fumarate-FA [] 28 mg iron- 800 mcg Tablet 1 tab PO DAILY RF: 0 Discharge Orders: Discharge Order (Routine); Ordered 03/21/21 Ordered By: Liyah Purcell Patient Instructions: Alprazolam (By mouth), Amlodipine (By mouth), Hypertension, Pre-eclampsia and Eclampsia (DC), Bleeding (DC), OB Discharge Report, OB Food/Drug Interaction Guide, Opioid Safety, OB Home Care, OB Proud Parent Packet, OB Vaginal Deliveries - C Discharge Attestations Time Spent in Discharge Care*: less than 30 min Quality Metrics Clinical Quality Measures During this hospital stay, did patient experience: None Coding Level of Care Code Acute Chg FW DC note Diagnoses Multigravida of advanced maternal age O09.521 Trimester: first trimester Bradycardia R00.1 Hypertension I10 Supervision of other high risk pregnancies, third trimester O09.893 Hepatitis C B17.10 Hepatic coma status: without hepatic coma Viral hepatitis chronicity: acute
[2021-03-21] MEDS: amlodipine 5 mg Tablet PO ×2 (09:49→12:46)
[2021-03-21] MEDS: prenatal vitamin Capsule 1 CAP PO (09:49)
[2021-03-21] MEDS: docusate sodium 100 mg Capsule PO (09:49)
[2021-03-21] MEDS: ibuprofen 800 mg tablet PO (09:50)
[2021-03-21] MEDS: ALPRAZolam 0.25 mg Tablet PO (09:50)
--- NOTE | 2021-03-21 09:50 | PC.NURSE ---
at pt bedside at this time
--- NOTE | 2021-03-21 10:28 | PC.NURSE ---
0800- pt off unit and in a CT scan accompanied by Verna SHOEMAKER
--- NOTE | 2021-03-21 12:01 | ECG_ITS ---
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 Measurements Intervals [place] Rate: 66 P: 42 SC: 115 QRS: 57 QRSD: 76 T: 52 QT: 389 QTc: 408 Interpretive Statements SINUS RHYTHM WITH SHORT SC INTERVAL LEFT ATRIAL ENLARGEMENT [-0.15mV P WAVE IN V1/V2] Compared to ECG 03/21/2021 08:52:12 Short SC interval now present Electronically Signed On 03-21-2021 12:18:26 CDT by Becca Corrales M.D. [id number]
--- NOTE | 2021-03-21 12:13 | PC.NURSE ---
pt stated I will be leaving with my baby. Educated to pt that due to high blood pressure we do not advise leaving against medical advice.
--- NOTE | 2021-03-21 12:41 | P.CONIM_ITS ---
Providers/Reason For Consult Consulting Physican/Specialty*: MD Adam/internal medicine Reason for Consult*: Bradycardia hypertension Attending Physician: Liyah Purcell MD Primary Care Provider: Monse Vogt APN History of Present Illness History of Present Illness Jazmin Martinez is a 35 year old female with past medical history of anxiety, depression on Prozac and BuSpar as per the patient, day 2 for a vaginal delivery. Medicine was consulted for high blood pressure and bradycardia overnight. Patient states she has a history of anxiety and gets her medications including BuSpar and Prozac from a primary care provider but sometimes she takes Xanax as needed which have not been prescribed to her along with hydrocodone on and off for back pain. She denies any history of hypertension. Patient states she does not take hydrocodone every day. On examination patient is tearful, anxious sitting up in bed moving all her limbs denying any headache, nausea, vomiting, chest pain, dysuria, palpitation, blurry vision. Patient states she is fairly anxious about her kid because there is a chance he needs needs to be transferred out for medical care. Overnight patient's heart rate went down as low as 49 while she was sleeping during my examination she is saturating 96% on room air, heart rate of 79 bpm regular, blood pressure 162/79. Overall she has received 10 mg of IV hydralazine with last dose 4 hours ago. She has also received amlodipine 5 mg 30 minutes prior to my examination. Patient had a CT PE chest done. Review of Systems General: Reports: 10 or more systems reviewed and unremarkable except in HPI and below Const: Denies: fever(s), chills, body aches, change in appetite, change in weight, malaise, night sweats, diaphoresis, change in sleep pattern, daytime sleepiness or snoring Eyes: Denies: change in vision, blurry vision, photophobia, eye discomfort or eye discharge ENMT: Denies: throat pain, enlarged tonsils, hoarseness, mouth pain, oral sores, dry mouth, tinnitus, nasal congestion or post nasal drip Card: Denies: chest pain, palpitations, irregular heart rhythm, edema, swelling of feet/ankles, lightheadedness, syncope, pre-syncope, dyspnea on exertion, orthopnea, leg pain with exertion or acrocyanosis Resp: Denies: dyspnea, productive cough, non-productive cough, wheezing, stridor, pain on inspiration, change in phlegm color, hemoptysis or chest congestion GI: Denies: abdominal pain, nausea, vomiting, hematemesis, coffee ground emesis, dysphagia, heartburn, diarrhea, constipation, bloating, GI cramping, change in bowel habits, pain on defecation, hematochezia or melena : Denies: flank pain, dysuria, urinary frequency, urinary urgency, urinary hesitancy, nocturia or hematuria Musc: Denies: neck pain, back pain, extremity pain, joint pain, joint swelling, joint redness, joint stiffness or limited range of motion Neuro: Denies: headache(s), numbness in extremities, weakness in extremities, sensory changes, lack of coordination, difficulty walking, frequent falls, dizziness, vertigo, confusion, Slurred speech present, difficulty communicating thoughts or seizure-like activity Psych: Denies: anxiety, depression, mood swings, panic attacks, hopelessness or irritability Endo: Denies: polyuria, polydipsia, tired all the time, cold intolerance, excessive sweating, flushing or heat intolerance Manoj/Lymph: Denies: easy bruising or easy bleeding All/Imm: Denies: tongue swelling, facial swelling or acute wheezing Meds/Allergies Home Medications and Allergies Home Medications Medication Instructions Recorded Confirmed Last Taken Type PNV cmb#95-ferrous fumarate-FA 1 tab PO DAILY 07/24/20 03/15/21 07/24/20 History [] krill oil 500 mg capsule See Rx Instructions PO .COMPLEX 08/31/20 03/15/21 Unknown History metoclopramide HCl 10 mg tablet 10 mg PO QID #120 tab 11/30/20 03/15/21 Unknown Rx omeprazole 20 mg tablet,delayed 20 mg PO DAILY PRN 11/30/20 03/15/21 Unknown History release fluoxetine 20 mg capsule 20 mg PO DAILY 30 Days #30 cap 01/22/21 03/15/21 Unknown Rx Allergies Allergy/AdvReac Type Severity Reaction Status Date / Time diphenhydramine Allergy HIVES Verified 03/15/21 10:34 [From Benadryl] promethazine [From Phenergan] Allergy SWELLING Verified 03/15/21 10:34 Current Medications Current Medications Generic Name Dose Route Start Last Admin Trade Name Freq PRN Reason Stop Dose Admin Alprazolam 0.25 mg 03/21/21 09:07 03/21/21 09:50 Alprazolam 0.25 Mg Tablet PO 0.25 mg TID PRN Administration ANXIETY Amlodipine Besylate 5 mg 03/21/21 09:30 03/21/21 09:49 Amlodipine 5 Mg Tablet PO 5 mg DAILY NEDA Administration Benzocaine 1 spray 03/19/21 13:40 03/19/21 17:27 Benzocaine-Menthol 78 Gm Canister TOPICAL 1 can PRN PRN Administration PAIN Docusate Sodium 100 mg 03/19/21 18:00 03/21/21 09:49 Docusate Sodium 100 Mg Capsule PO 100 mg BID NEDA Administration Oxytocin 30 unit in 500 mls @ 600 mls/hr 03/19/21 12:44 03/19/21 15:38 Pitocin IV Infused .Q50M PRN Titration After delivery of Protocol Ibuprofen 800 mg 03/19/21 15:00 03/21/21 09:50 Ibuprofen 800 Mg Tablet PO 800 mg TID NEDA Administration Multivit/Folic Acid/Iron 1 cap 03/20/21 09:00 03/21/21 09:49 Vitamin Capsule PO 1 cap DAILY NEDA Administration PFSH Acute PFSH: Medical History (Updated 03/21/21 @ 09:21 by Liyah Purcell MD) Chronic shoulder pain Hepatitis C Diagnosed in 2012 during . History of hemorrhage Primary osteoarthritis, right shoulder Tendinopathy of right rotator cuff Surgical History H/O abdominoplasty (~11/2015) H/O knee surgery R knee History of reduction of closed fracture (~02/25/14) Closed Reduction and percutaneous internal fixation with 7.0 cannulated screws times 2, 02/25/2014, by Dr Koch History of surgery on arm 8 surgeries on R arm with skin graft S/P breast augmentation with lift. Silicone gel implants. Family History Grandmother No problems noted. Father Diabetes Heart disease Hypercholesteremia Mother No problems noted. Grandfather Diabetes Paternal Heart disease Paternal Family/Other Diabetes Paternal side in general Heart disease Paternal Aunts, Maternal uncle Sister Hypertension Brother Hypertension Social History Smoking and tobacco status: former smoker Quit status (tobacco): has quit using tobacco Year quit tobacco: 2012 Former quit date comment: Was at most 1 pack/week. Started age 23 Alcohol intake: former Year of sobriety/quit date alcohol: 2012 History of recent travel: No Additional social history: Drug use: former- Marijuana as a teen Female Reproductive History: Date of last menstrual period: 06/21/20 : 4 Vitals/I&O/Wt Last Vital Signs Temp 98.2 F 03/21/21 04:50 Pulse 79 03/21/21 11:50 Resp 17 03/21/21 11:50 BP 182/89 03/21/21 11:50 Weight last 48 hrs Weight 54.431 kg Physical Exam Narrative: EXAM NARRATIVE: EXAM NARRATIVE: General: AOx3, anxious, tearful HEENT: PERRLA, pupils bilaterally equal and reactive Chest: Normal vesicular breath sounds bilaterally all over the lung [place], good equal air entry. CVS: S1-S2 regular, no murmurs, no tachycardia, no gallops, no rubs Abdomen: Soft, tender in lower abdomen, soft uterus palpable, bowel sounds present, Neuro: No focal deficits, no facial deformity, AO x3, power 5/5 in all limbs Data Labs: Other Labs: Laboratory Results WBC 13.5 10^3/uL (4.0 -10.0) H 03/21/21 04:20 RBC 3.77 10^6/uL (4.1 -5.3) L 03/21/21 04:20 Hgb 10.5 g/dL (11.5-1 5.3) L 03/21/21 04:20 Hct 32.2 % (37.0-47.0 ) L 03/21/21 04:20 MCV 85.4 fL (81-99) 03/21/21 04:20 MCH 27.9 pg (28.0-34. 0) L 03/21/21 04:20 MCHC 32.6 g/dL (30.0-3 6.0) 03/21/21 04:20 RDW 13.8 % (12.1-15.1 ) 03/21/21 04:20 Plt Count 367 10^3/cmm (130 -400) 03/21/21 04:20 MPV 10.2 fL (7.4-10.4 ) 03/21/21 04:20 Neut % (Auto) 50.2 % 03/21/21 04:20 Lymph % (Auto) 37.7 % 03/21/21 04:20 [place] % (Auto) 6.2 % 03/21/21 04:20 Eos % (Auto) 3.6 % 03/21/21 04:20 Baso % (Auto) 0.7 % 03/21/21 04:20 Neut # (Auto) 6.78 10^3/uL (1.8 -7.7) 03/21/21 04:20 Lymph # (Auto) 5.1 10^3/uL (0.8- 4.8) H 03/21/21 04:20 [place] # (Auto) 0.8 10^3/uL (0.2- 0.9) 03/21/21 04:20 Eos # (Auto) 0.5 10^3/uL (0.0- 0.8) 03/21/21 04:20 Baso # (Auto) 0.1 10^3/uL (0.0- 0.1) 03/21/21 04:20 Nucleated RBC % (a uto) 0 % 03/21/21 04:20 Nucleated RBCs # 0.0 /100WBC 03/21/21 04:20 D-Dimer <= 0.27 ug/mIFEU (0-0.59) 03/21/21 08:21 Sodium 140 mmol/L (136-1 45) 03/21/21 04:20 Potassium 4.1 mmol/L (3.5-5 .1) 03/21/21 04:20 Chloride 105 mmol/L (98-10 7) 03/21/21 04:20 Carbon Dioxide 24 mmol/L (22-29) 03/21/21 04:20 Anion Gap 15.1 (5-19) 03/21/21 04:20 BUN 8 mg/dL (6-20) 03/21/21 04:20 Creatinine 0.4 mg/dL (0.5-0. 9) L 03/21/21 04:20 GFR Calculation 179.6 mL/min (90- 130) H 03/21/21 04:20 Glucose 91 mg/dL (65-115) 03/21/21 04:20 Calculated Osmolal ity 288 mOsm/kg (285- 295) 03/21/21 04:20 Uric Acid 5.4 mg/dL (2.4-5. 7) 03/21/21 04:20 Calcium 8.4 mg/dL (8.5-10 .5) L 03/21/21 04:20 Magnesium 1.7 mg/dL (1.7-2. 3) 03/21/21 06:20 Total Bilirubin 0.2 mg/dL (0.15-1 .2) 03/21/21 04:20 AST 21 U/L (0-32) 03/21/21 04:20 ALT 14 U/L (0-33) 03/21/21 04:20 Alkaline Phosphata se 91 IU/L (35-105) 03/21/21 04:20 Troponin T Baselin e 6 ng/L (0-10) 03/21/21 04:20 Troponin T 120 Min kevin 7.91 ng/L (0-10) 03/21/21 06:20 Delta Troponin T 1.91 ABS# (0-10) 03/21/21 06:20 Total Protein 5.8 g/dL (6.6-8.7 ) L 03/21/21 04:20 Albumin 3.0 g/dL (3.5-5.2 ) L 03/21/21 04:20 Globulin 2.8 g/dL (1.3-4.6 ) 03/21/21 04:20 TSH 3.07 uIU/mL (0.27 -4.20) 03/21/21 06:20 Urine Color Yellow (Yellow) 03/21/21 04:40 Urine Appearance Clear (CLEAR) 03/21/21 04:40 Urine pH 7 (5-7) 03/21/21 04:40 Ur Specific Gravit y 1.015 (1.005-1.0 30) 03/21/21 04:40 Urine Protein Neg (Negative) 03/21/21 04:40 Urine Glucose (UA) Norm (Normal) 03/21/21 04:40 Urine Ketones Negative (Negati ve) 03/21/21 04:40 Urine Blood 3+ (Negative) H 03/21/21 04:40 Urine Nitrate Negative (Negati ve) 03/21/21 04:40 Urine Bilirubin Neg (Negative) 03/21/21 04:40 Urine Urobilinogen Norm mg/dL (Negat gerald) 03/21/21 04:40 Ur Leukocyte Lucy ase Negative (Negati ve) 03/21/21 04:40 Urine RBC >100 /hpf (0-2) H 03/21/21 04:40 Urine WBC 0-4 /hpf (0-5) H 03/21/21 04:40 Ur Squamous Epith Cells 15-25 /hpf (0-5) H 03/21/21 04:40 Amorphous Sediment Not Reportable 03/21/21 04:40 Urine Bacteria Trace /hpf (NONE) 03/21/21 04:40 U Random Total Pro tein 9 mg/dL 03/21/21 04:40 Urine Creatinine 34 mg/dL (28-217) 03/21/21 04:40 Protein/Creatinin Ratio 0.26 mg/mg CR 03/21/21 04:40 Urine Opiates Scre en Positive ng/mL (N egative) H 03/19/21 13:30 Ur Barbiturates Sc reen Negative ng/mL (N egative) 03/19/21 13:30 Ur Phencyclidine S crn Negative ng/mL (N egative) 03/19/21 13:30 Ur Amphetamines Sc reen Negative ng/mL (N egative) 03/19/21 13:30 U Benzodiazepines Scrn Negative ng/mL (N egative) 03/19/21 13:30 Urine Cocaine Scre en Negative ng/mL (N egative) 03/19/21 13:30 U Marijuana (THC) Screen Positive ng/mL (N egative) H 03/19/21 13:30 Impressions Chest/Abdomen CTA 03/21/21 07:35 IMPRESSION: 1. Enlarged uterus. 2. Prominent amount of stool in the colon. 3. No acute abnormalities are seen in the abdomen. Normal arteriogram. IMPRESSION: 1. No evidence of pulmonary embolus or aortic aneurysm/dissection. 2. No acute abnormalities are seen in the chest. Radiation Dose CTDIVOL = (mGy): DLP = 1042.34~1042.34 (mGy-cm) A&P Assessment and plan (1) Hypertension: Status: Acute (2) Bradycardia: Status: Acute (3) Hepatitis C: Status: Acute Qualifiers: Viral hepatitis chronicity: acute Hepatic coma status: without hepatic coma Qualified Code(s): B17.10 - Acute hepatitis C without hepatic coma Additional A&P Information 35-year-old female with past medical history of anxiety, depression, use of Xanax and hydrocodone as an outpatient, 2 days from a normal vaginal delivery developed bradycardia and high blood pressure overnight. Transfer to [facility] for telemetry. EKG shows sinus bradycardia without QTC prolongation. MS interval mildly prolonged. Repeat EKG now as heart rate is better. Hypertension: PIH, eclampsia labs reviewed and stable. Will monitor eclampsia labs every 12 hours for now. For now start patient on amlodipine 10 mg daily, hydralazine 10 mg every 4 hours as needed. Goal blood pressure less than 140/90 mmHg. Patient is not breast-feeding as per my conversation with primary canceling machine operator. They are okay with patient getting any kind of antihypertensives. If needed can add GERSON inhibitor. Will avoid beta-marlyn given bradycardia. Check stat echocardiogram, TSH. We will change medications as per clinical picture. Chest pain: Most likely secondary to anxiety. CTA PE negative for pulmonary embolism or aortic dissection. No consolidation. Patient saturating well on room air. D-dimer negative. Insert of Ativan start patient on Xanax 0.25 every 8 hours as needed. Continue hydrocodone 1 tablet every 6 hours as needed as started already. Patient's care discussed in detail with Dr. Purcell from [employer]. Thank you for the consult if needed clinically to call me back with any questions. Consult Attestations Medical Necessity Statement: As per primary team, ongoing bradycardia and hypertension for heart rate monitoring and better blood pressure control. Time Spent in Patient Care: Greater than 35 minutes (>than 50% of time spent in counselling and/or direct pt care on unit) . Coding Level of Care Code Acute Production Boring Machine Operator for [facility] Diagnoses Hypertension I10 Bradycardia R00.1 Hepatitis C B17.10 Viral hepatitis chronicity: acute Hepatic coma status: without hepatic coma
--- NOTE | 2021-03-21 13:01 | PC.NURSE ---
educated pt due to contrast given while in CT scan to no breastfeed infant at this time.
--- NOTE | 2021-03-21 14:52 | PC.NURSE ---
transport team in room with mom
[2021-03-24 17:58] LABS: ABG PCO2 32.6 mmHg (35-45); Arterial Blood Gas Hematocrit 34.1 % (37-47); Base Excess ABG 2.3 mmol/L (-2.0-2.0); Blood Gas Allen Test Pos; Blood Gas Operator Identificat ED; Blood Gas Sample Site Radial, right; Blood Gas Sample Type Arterial; HCO3 ABG 25.2 mmol/L (22-26); Oxygen Device ROOM AIR; PO2 ABG 86.5 mmHg (80.0-100.0)
== END 2021-03-21 15:15 | disposition left against medical advice (07) | DRG 806 ==
LOC: OPOB 12:58 → OBGYN 12:58
PROVIDERS: Internal Medicine; Admitting Provider Obstetrics & Gynecology; PCP Nurse Practitioner Family; Visit Provider Obstetrics & Gynecology
DX: O62.3 Precipitate labor (principal); O98.42 Viral hepatitis complicating childbirth; Z37.0 Single live birth; O99.324 Drug use complicating childbirth; B19.20 Unspecified viral hepatitis C without hepatic coma; O70.1 Second degree perineal laceration during delivery; O99.824 Streptococcus B carrier state complicating childbirth; O99.344 Other mental disorders complicating childbirth; F41.9 Anxiety disorder, unspecified; F32.9 Major depressive disorder, single episode, unspecified; F11.90 Opioid use, unspecified, uncomplicated; F13.90 Sedative, hypnotic, or anxiolytic use, unspecified, uncomplicated; O16.5 Unspecified maternal hypertension, complicating the puerperium; O99.893 Other specified diseases and conditions complicating puerperium; R00.1 Bradycardia, unspecified; R07.9 Chest pain, unspecified; Z53.29 Procedure and treatment not carried out because of patient's decision for other reasons; Z3A.38 38 weeks gestation of pregnancy
CPT/HCPCS: 36415; 36600; 59409; 71275; 74175; 80053; 80306; 81001; 82570; 82803; 83735; 84156; 84443; 84484; 84550; 85025; 85027; 85378; 93005; 93306; 96372; J0360; J1885; Q9967

== ENCOUNTER → 2021-04-26 16:04 | Outpatient (BNVA) | payer MEDICAID, SELFPAY | PROVIDERS: PCP Nurse Practitioner Family; Visit Provider Obstetrics & Gynecology | DX: Z39.2 Encounter for routine postpartum follow-up (principal); N89.8 Other specified noninflammatory disorders of vagina | CPT/HCPCS: 87481; 87512; 87798; 87799 ==

== ENCOUNTER → 2021-05-03 15:47 | Outpatient (BNVA) | payer MEDICAID, SELFPAY | PROVIDERS: PCP Nurse Practitioner Family; Visit Provider Obstetrics & Gynecology | DX: Z32.01 Encounter for pregnancy test, result positive (principal) | CPT/HCPCS: 81025; 84702 ==

== ENCOUNTER → 2021-05-05 13:22 | Outpatient (BNVA) | payer MEDICAID, SELFPAY | PROVIDERS: PCP Nurse Practitioner Family; Visit Provider Obstetrics & Gynecology | DX: Z32.01 Encounter for pregnancy test, result positive (principal) | CPT/HCPCS: 84702 ==

== ENCOUNTER → 2021-06-11 13:04 | Outpatient (BNVA) | payer MEDICAID, SELFPAY | PROVIDERS: PCP Nurse Practitioner Family; Visit Provider Obstetrics & Gynecology | DX: Z30.09 Encounter for other general counseling and advice on contraception (principal) | CPT/HCPCS: 81025 ==

== ENCOUNTER 2022-02-04 12:23 | Inpatient (IN) | payer MEDICAID, SELFPAY ==
[2022-02-04 12:28] VITALS: BP 113/93; PULSE 122; RESP 15; TEMP 36.9; O2SAT 99; BMI 23.6
--- NOTE | 2022-02-04 12:36 | CTR_ITS ---
PROCEDURE INFORMATION: Exam: CT Head Without Contrast Exam date and time: 02/04/2022 1:24 PM Age: 36 years old Clinical indication: Other: Mood swings; HX of chronic opiate use; Prior surgery; Surgery date: 6+ months; Surgery type: Breast augmentation; Patient HX: Confusion; Mood swings; Distraught; Chronic HX of opiate use TECHNIQUE: Imaging protocol: Computed tomography of the head without contrast. Radiation optimization: All CT scans at this facility use at least one of these dose optimization techniques: automated exposure control; mA and/or kV adjustment per patient size (includes targeted exams where dose is matched to clinical indication); or iterative reconstruction. COMPARISON: No relevant prior studies available. RADIATION DOSE METRICS: Total DLP (mGy-cm): 887.15 FINDINGS: Brain: Normal. No hemorrhage. Unremarkable white matter. No mass effect. Cerebral ventricles: No ventriculomegaly. Paranasal sinuses: Visualized sinuses are unremarkable. No fluid levels. Mastoid air cells: Visualized mastoid air cells are well aerated. Bones/joints: Unremarkable. No acute fracture. Soft tissues: Unremarkable. CT/CT head wo con* [id number] IMPRESSION: No acute intracranial abnormality.
--- NOTE | 2022-02-04 12:43 | ED_ITS ---
HPI - General Adult General: Chief complaint: Psychiatric Symptoms Stated complaint: AGITATED/ PSYCH EVAL Time Seen by Provider: 02/04/22 12:35 History of Present Illness: HPI: [36]yo patient w/ hx of chronic opiate use BIBP for homocidal ideation. Per community relations police lieutenant, patient's children is currently under the custody. There was concern that patient verbalized threats to hurt her children and is unable to take care of them. on arrival, the patient is AAOx3 and distraught. No focal complaints of chest pain, shortness of breath, palpitations, N/V, focal GI/ complaints. Currently denies SI. No complaints of hallucinations. Onset: acute Duration: ongoing Location: home Severity: severe Associated symptoms: Deny chest pain, dyspnea, nausea, rash, palpitations or vomiting Review of Systems Const: Denies: fever(s) or chills Eyes: Denies: change in vision ENMT: Denies: mouth pain Card: Denies: chest pain or palpitations Resp: Denies: dyspnea or non-productive cough GI: Denies: abdominal pain, nausea, vomiting or diarrhea : Denies: dysuria Musc: Denies: extremity pain Skin/Breast: Denies: rash or new lesions Neuro: Denies: weakness in extremities Psych: Reports: mood swings Manoj/Lymph: Denies: easy bruising PFSH ED PFSH: Medical History Chronic shoulder pain Hepatitis C Diagnosed in 2013 during . History of hemorrhage Primary osteoarthritis, right shoulder Tendinopathy of right rotator cuff Surgical History H/O abdominoplasty (~11/2015) H/O knee surgery R knee History of reduction of closed fracture (~02/25/14) Closed Reduction and percutaneous internal fixation with 7.0 cannulated screws times 2, 02/25/2014, by Dr Koch History of surgery on arm 8 surgeries on R arm with skin graft S/P breast augmentation with lift. Silicone gel implants. Family History Grandmother No problems noted. Father Diabetes Heart disease Hypercholesteremia Mother No problems noted. Grandfather Diabetes Paternal Heart disease Paternal Family/Other Diabetes Paternal side in general Heart disease Paternal Aunts, Maternal uncle Sister Hypertension Brother Hypertension Social History Smoking and tobacco status: former smoker Quit status (tobacco): has quit using tobacco Year quit tobacco: 2012 Former quit date comment: Was at most 1 pack/week. Started age 23 Alcohol intake: former Year of sobriety/quit date alcohol: 2012 History of recent travel: No Additional social history: Drug use: former- Marijuana as a teen Female Reproductive History: Date of last menstrual period: 06/21/20 Physical Exam Const: COMMON NORMALS: alert HENMT: COMMON NORMALS: atraumatic HEAD & SCALP: atraumatic MOUTH: moist mucous membranes not abnormal Eye: COMMON NORMALS: EOMs intact bilaterally and conjunctivae normal CONJUNCTIVA: Yes conjunctivae normal Neck/C-Spine: COMMON NORMALS: full ROM and supple Resp: COMMON NORMALS: normal respiratory effort and clear to auscultation bilaterally AUSCULTATION: clear to auscultation bilaterally Cardio: RATE: tachycardic GI: COMMON NORMALS: Soft to palpation and non-tender PALPATION: Yes Soft to palpation Extremity: COMMON NORMALS: full ROM Neuro: SENSORIUM/ORIENTATION: Yes alert MOTOR EXAM: No Abnormal motor strength present and Other motor observations present (no focal motor deficits) Psych: SPEECH: Yes Pressured speech present MOOD & AFFECT: Yes depressed mood Course Vital Signs: Vital signs: Vital Signs Temperature 98.4 F 02/04/22 13:04 Pulse Rate 122 H 02/04/22 13:04 Respiratory Rate 15 02/04/22 13:04 Blood Pressure 113/93 02/04/22 13:04 Pulse Oximetry 99 02/04/22 13:04 MDM - General Adult Medical Decision Making [36]yo patient w/ hx of chronic opiate use presenting for homcidal ideation. HDS, exam within normal limit Thoughts are linear and organized, and the patient has no AH/VH, or SI. Clinically the patient displays no overt toxidrome; they are well appearing, with low suspicion for toxic ingestion given history and exam. Symptoms unlikely 2/2 anemia, hypothyroidism, infection, or ICH. Workup: CBC, CMP, Lipase, salicylate/tylenol, bHCG, UDS, TSH/free T4, CT head Lab findings: wnl, +benzo in the urine [2:45pm] On reassessment, labs and workup wnl. Patient is hemodynamically stable with no acute medical complaints. Case discussed with psychiatric provider Dr. Herbert at [facility] psych inpatient with recommendation for admission Disposition: Psych Lab Data : 02/04/22 14:22 02/04/22 14:[address] 02/04/22 12:36 IMPRESSION: No acute intracranial abnormality. Laboratory Results WBC 13.0 10^3/uL (4.0-10.0) H 02/04/22 14: RBC 5.25 10^6/uL (4.1-5.3) 02/04/22 14: Hgb 13.5 g/dL (11.5-15.3) 02/04/22 14: Hct 42.2 % (37.0-47.0) 02/04/22 14: MCV 80.4 fl (81-99) L 02/04/22 14: MCH 25.7 pg (28.0-34.0) L 02/04/22 14: MCHC 32.0 g/dL (30.0-36.0) 02/04/22 14: RDW 13.8 % (12.1-15.1) 02/04/22 14: Plt Count 213 10^3/cmm (130-400) 02/04/22 14: MPV 9.9 fL (7.4-10.4) 02/04/22 14: Neut % (Auto) 69.0 % 02/04/22 14: Lymph % (Auto) 18.1 % 02/04/22 14: [place] % (Auto) 8.0 % 02/04/22 14: Eos % (Auto) 3.9 % 02/04/22 14: Baso % (Auto) 0.5 % 02/04/22 14: Neut # (Auto) 8.93 10^3/uL (1.8-7.7) H 02/04/22 14: Lymph # (Auto) 2.4 10^3/uL (0.8-4.8) 02/04/22 14: [place] # (Auto) 1.0 10^3/uL (0.2-0.9) H 02/04/22 14:22 Eos # (Auto) 0.5 10^3/uL (0.0-0.8) 02/04/22 14: Baso # (Auto) 0.1 10^3/uL (0.0-0.1) 02/04/22 14:22 Nucleated RBC % (auto) 0 % 02/04/22 14: Nucleated RBCs # 0.0 /100WBC 02/04/22 14:22 Sodium 137 mmol/L (136-145) 02/04/22 14:22 Potassium 4.3 mmol/L (3.5-5.1) 02/04/22 14: Chloride 104 mmol/L (98-107) 02/04/22 14: Carbon Dioxide 23 mmol/L (22-29) 02/04/22 14: Anion Gap 14.3 (5-19) 02/04/22 14: BUN 6 mg/dL (6-20) 02/04/22 14: Glucose 109 mg/dL (65-115) 02/04/22 14:22 Calcium 9.3 mg/dL (8.5-10.5) 02/04/22 14:22 Total Bilirubin 0.3 mg/dL (0.15-1.2) 02/04/22 14: AST 19 U/L (0-32) 02/04/22 14: ALT 19 U/L (0-33) 02/04/22 14:22 Alkaline Phosphatase 80 IU/L (35-105) 02/04/22 14:22 Total Protein 6.8 g/dL (6.6-8.7) 02/04/22 14:22 Albumin 4.1 g/dL (3.5-5.2) 02/04/22 14:22 Globulin 2.7 g/dL (1.3-4.6) 02/04/22 14: Lipase 19 U/L (13-60) 02/04/22 14:22 Free T4 0.87 ng/dL (0.82-1.77) 02/04/22 14:22 Urine HCG, Qual Negative (Negative) 02/04/22 13:35 Urine Opiates Screen Negative ng/mL (Negative) 02/04/22 13:35 Ur Barbiturates Screen Negative ng/mL (Negative) 02/04/22 13:35 Ur Phencyclidine Scrn Negative ng/mL (Negative) 02/04/22 13:35 Ur Amphetamines Screen Negative ng/mL (Negative) 02/04/22 13:35 U Benzodiazepines Scrn Positive ng/mL (Negative) H 02/04/22 13:35 Urine Cocaine Screen Negative ng/mL (Negative) 02/04/22 13:35 U Marijuana (THC) Screen Negative ng/mL (Negative) 02/04/22 13:35 Imaging Data Other Imaging: [facility]'s [facility] [address] [place] [address] CT Scan Report Signed Patient: Jazmin Martinez Unit #: [id number] : 1985 Age/Sex: 36 / F ADM Date: 02/04/22 Loc: ER Room/Bed: Attending Dr: Ordering Provider/Ordering MD: Devyn Mckeon MD Date of Service: 02/04/22 Procedure(s): CT head wo con* [id number] Accession Number(s): [id number] Report Number: [id number] PROCEDURE INFORMATION: Exam: CT Head Without Contrast Exam date and time: 02/04/2022 1:24 PM Age: 36 years old Clinical indication: Other: Mood swings; HX of chronic opiate use; Prior surgery; Surgery date: 6+ months; Surgery type: Breast augmentation; Patient HX: Confusion; Mood swings; Distraught; Chronic HX of opiate use TECHNIQUE: Imaging protocol: Computed tomography of the head without contrast. Radiation optimization: All CT scans at this facility use at least one of these dose optimization techniques: automated exposure control; mA and/or kV adjustment per patient size (includes targeted exams where dose is matched to clinical indication); or iterative reconstruction. COMPARISON: No relevant prior studies available. RADIATION DOSE METRICS: Total DLP (mGy-cm): 887.15 FINDINGS: Brain: Normal. No hemorrhage. Unremarkable white matter. No mass effect. Cerebral ventricles: No ventriculomegaly. Paranasal sinuses: Visualized sinuses are unremarkable. No fluid levels. Mastoid air cells: Visualized mastoid air cells are well aerated. Bones/joints: Unremarkable. No acute fracture. Soft tissues: Unremarkable. CT/CT head wo con* [id number] IMPRESSION: No acute intracranial abnormality. ? Dictated By: Paolo Miner DO Signed By: Paolo Miner DO Signed Date/Time: 02/04/22 1353 DD/ 1324 Discharge Plan Discharge Patient Disposition: Admitted As Inpatient Clinical Impression: History of homicidal ideation Condition: Stable Coding Level of Care Code ED Engineer Automated Equipment for Chg Fwd Exam Comprehensive
[2022-02-04 13:04] VITALS: BP 113/93; PULSE 122; RESP 15; TEMP 36.9; O2SAT 99
[2022-02-04 14:29] LABS: Basophils # 0.1 10^3/uL (0.0-0.1); Basophils % 0.5 %; Eosinophils # 0.5 10^3/uL (0.0-0.8); Eosinophils % 3.9 %; Hematocrit 42.2 % (37.0-47.0); Hemoglobin 13.5 g/dL (11.5-15.3); Lymphocytes # 2.4 10^3/uL (0.8-4.8); Lymphocytes % 18.1 %; Mean Corpuscular Hemoglobin 25.7 pg (28.0-34.0); Mean Corpuscular Volume 80.4 fl (81-99); Mean Platelet Volume 9.9 fL (7.4-10.4); Neutrophils # 8.93 10^3/uL (1.8-7.7); Nucleated Red Blood Cells % 0 %; Platelet Count 213 10^3/cmm (130-400); Red Blood Count 5.25 10^6/uL (4.1-5.3); Red Cell Distribution Width 13.8 % (12.1-15.1)
[2022-02-04 14:29] LABS: Amphetamines Screen Urine Negative (Negative); Barbiturates Screen Urine Negative (Negative); Benzodiazepines Screen Urine Positive (Negative); Cocaine Screen Urine Negative (Negative); Opiate Screen Urine Negative (Negative); PCP Screen Urine Negative (Negative); THC Screen Urine Negative (Negative)
[2022-02-04 14:59] LABS: Alanine Aminotransferase 19 U/L (0-33); Albumin Level 4.1 g/dL (3.5-5.2); Alkaline Phosphatase 80 IU/L (35-105); Anion Gap 14.3 (5-19); Aspartate Amino Transferase 19 U/L (0-32); Blood Urea Nitrogen 6 mg/dL (6-20); Calcium 9.3 mg/dL (8.5-10.5); Carbon Dioxide 23 mmol/L (22-29); Chloride 104 mmol/L (98-107); Free T4 Free Thyroxine 0.87 ng/dL (0.82-1.77); Globulin 2.7 g/dL (1.3-4.6); Glucose 109 mg/dL (65-115); Lipase 19 U/L (13-60); Osmolality Calculated 282 mOsm/kg (285-295); Potassium 4.3 mmol/L (3.5-5.1); Sodium 137 mmol/L (136-145); Thyroid Stimulating Hormone 0.21 uIU/mL (0.27-4.20); Total Bilirubin 0.3 mg/dL (0.15-1.2); Total Protein 6.8 g/dL (6.6-8.7)
[2022-02-04 15:05] LABS: Acetaminophen < 5.0 ug/mL (10-30); Salicylate < 0.3 mg/dL (3-10)
[2022-02-04 17:06] VITALS: BP 147/92; PULSE 97; RESP 18; TEMP 36.6; O2SAT 97
[2022-02-04 17:15] VITALS: BP 123/83; PULSE 86; RESP 18; TEMP 36.3; O2SAT 96
[2022-02-04] MEDS: OLANZapine 5 mg ODT PO (17:26)
[2022-02-04 20:51] VITALS: BP 113/77; PULSE 94; RESP 16; TEMP 36.9; O2SAT 100
[2022-02-05] MEDS: OLANZapine 5 mg ODT PO ×3 (05:51→20:15)
--- NOTE | 2022-02-05 05:51 | PC.NURSE ---
patient anxious, tearful. she is upset about her kids being taken away.
[2022-02-05 06:00] VITALS: BP 120/77; PULSE 86; RESP 17; TEMP 37.1; O2SAT 100
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
--- NOTE | 2022-02-05 11:00 | PC.NURSE ---
PRN Medication Patient every tearful and upset after a phone call, patient upset that she can't be with her children this weekend and about the situation she is in. Zyprexa 5mg given po.
[2022-02-05 14:00] VITALS: BP 110/75; PULSE 106; RESP 17; TEMP 36.4; O2SAT 100
--- NOTE | 2022-02-05 16:30 | PC.NURSE ---
METHADONE FIRE MANAGEMENT SPECIALIST SPOKE WITH STAFF AT [facility] AND THEY REPORTED THAT SHE IS DISPENSED 70MG OF METHADONE ON A DAY BY DAY BASIS. PT LAST RECEIVED A DOSE ON 02/01/22. [facility] NURSE REPORTS THAT THEIR PROTOCOL IS TO DECREASE THE DOSE IN HALF IF THE PT MISSES MORE THAN 2 DOSES. THIS WAS RELAYED TO DR. CARRILLO AND ORDER WAS RECEIVED FOR METHADONE 35 MG ONCE TODAY AND METHADONE 45 MG ONCE TOMORROW AND HE WILL RE-EVALUATE ON MONDAY.
[2022-02-05 17:33] VITALS: RESP 18
[2022-02-05] MEDS: methadone 10 mg Tablet 30 MG PO (17:33)
[2022-02-05 17:34] VITALS: RESP 18
[2022-02-05] MEDS: methadone 10 mg Tablet 5 MG PO (17:34)
[2022-02-05] MEDS: nicotine 2 mg Gum BUCCAL (19:07)
[2022-02-05 22:00] VITALS: BP 122/87; PULSE 77; RESP 16; TEMP 36.9; O2SAT 100
[2022-02-06 06:00] VITALS: BP 133/80; PULSE 81; RESP 16; TEMP 36.7; O2SAT 100; BMI 25.9
[2022-02-06] MEDS: OLANZapine 5 mg ODT PO ×2 (08:37→20:17)
[2022-02-06] MEDS: methadone 10 mg Tablet 40 MG PO (08:38)
[2022-02-06] MEDS: methadone 10 mg Tablet 5 MG PO (08:38)
--- NOTE | 2022-02-06 08:39 | PC.NURSE ---
PRN ZYPREXA ZYDIS 5 MG GIVEN PO PER PT C/O STATED ANXIETY
[2022-02-06] MEDS: nicotine 2 mg Gum BUCCAL ×2 (11:53→18:19)
--- NOTE | 2022-02-06 12:06 | PC.NURSE ---
Denies pain. Denies SI/HI. Pt very tearful. States it is her son's 9th birthday alliance party and she has to miss it because she's in NPU. Able to distract and calm pt. Discussed exercises and pt's fitness goals.
[2022-02-06 14:00] VITALS: BP 125/83; PULSE 100; RESP 17; TEMP 36.4; O2SAT 99
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
[2022-02-06] MEDS: propranolol 20 mg Tablet PO (18:19)
--- NOTE | 2022-02-06 18:20 | PC.NURSE ---
PRN INDERAL 20 MG GIVEN PO PER PT C/O ANXIETY
[2022-02-06 20:17] VITALS: BP 114/71; PULSE 70; RESP 16; TEMP 36.7; O2SAT 100
[2022-02-06] MEDS: trazodone 50 mg Tablet PO (22:04)
[2022-02-07 06:00] VITALS: BP 118/74; PULSE 76; RESP 18; TEMP 36.4; O2SAT 96
[2022-02-07] MEDS: methadone 10 mg Tablet 55 MG PO (08:41)
[2022-02-07] MEDS: nicotine 2 mg Gum BUCCAL ×4 (08:41→20:22)
[2022-02-07 14:00] VITALS: BP 108/50; PULSE 87; RESP 16; TEMP 36.6
[2022-02-07] MEDS: propranolol 20 mg Tablet PO (16:00)
--- NOTE | 2022-02-07 16:00 | PC.NURSE ---
PRN INDERAL 20 MG GIVEN PO PER PT C/O ANXIETY. WILL CONT TO MONITOR.
--- NOTE | 2022-02-07 17:28 | P.NPUPN_ITS ---
Subjective NPU Subjective: Patient presented today reporting that things are going a little better. She reports she really misses her children and she really wants to make sure that what ever medication she is taking does not cause her to make CYS think that she is doing things that she is not. We talked about her requesting to go to Suboxone instead of the methadone. But she also reports that she struggles with pain and we discussed pain clinics as well. We did discuss the fact that Suboxone does help with pain and is used in other countries more often in pain situations as well as for addiction. Otherwise we talked about the likelihood of discharge in the next 48 hours. Mental Status Exam MSE Comments: This is an overweight white female in hospital scrubs with adequate grooming and eye contact. No abnormal movements. Cooperative with exam in mild distress. Speech was normal rate and volume. Mood described as doing better, affect less anxious. Thought process, organized. Thought content: patient denies any suicidal or homicidal ideation, no delusions reported or noted, and denies any auditory or visual hallucinations. Attention and concentration are intact and memory is reliable but none were formally tested. She is alert and oriented three times. Insight and judgment are limited. Impulse control is limited. Vitals/I&O/Wt Last Vital Signs Temp 97.8 F 02/07/22 20:22 Pulse 71 02/07/22 20:22 Resp 19 H 02/07/22 20:22 BP 126/76 02/07/22 20:22 Pulse Ox 100 02/07/22 20:22 Weight last 48 hrs Weight 62.142 kg Data NPU : 02/04/22 14:22 02/04/22 14:22 A&P Assessment and plan (1) Anxiety and depression: Status: Acute (2) Adjustment disorder with mixed disturbance of emotions and conduct: Status: Acute (3) Suicidal ideation: Status: Acute (4) History of homicidal ideation: Status: Acute (5) Hypertension: Status: Acute (6) Bradycardia: Status: Acute (7) Hepatitis C: Status: Acute Qualifiers: Viral hepatitis chronicity: acute Hepatic coma status: without hepatic coma Qualified Code(s): B17.10 - Acute hepatitis C without hepatic coma (8) Chronic shoulder pain: Status: Acute Plan This is a 36 year old white female with post traumatic stress disorder, adjustment disorder with mixed disturb of emotion and conduct, and question of opiate use disorder which she is downplaying with issues with CYS arrangement. Continue current medications. We will consider adding antidepressant versus antianxiety agents with her approval. Encourage individual, group and milieu therapy Continue q-15 minute check for safety Recommend sober living treatment at the highest level of care after discharge to which the patient is willing to commit. Evaluate for merit of 96 hour hold and with her that includes safety of her children. We will identify it whether a court document can be seen and assist her in managing that situation tomorrow. Involuntary Hold Information 96 Hour Hold: 96 Hour Involuntary Admission: Yes 96 Hour Hold Ending Date: 02/10/22 96 Hour Hold Ending Time: 13:30 Attestations NPU Medical Necessity Statement*: Inpatient hospitalization is medically necessary and the clinically appropriate intervention at this time. We will monitor medications and make changes as indicated. Likely length of stay is 1-3 days. Coding Level of Care Code Acute Sas Statistical Programmer for g Fwd Diagnoses Anxiety and depression F41.9; F32.A Adjustment disorder with mixed disturbance of emotions and conduct F43.25 Suicidal ideation R45.851 History of homicidal ideation Z87.898 Hypertension I10 Bradycardia R00.1 Hepatitis C B17.10 Viral hepatitis chronicity: acute Hepatic coma status: without hepatic coma Chronic shoulder pain M25.519; G89.29
[2022-02-07 20:22] VITALS: BP 126/76; PULSE 71; RESP 19; TEMP 36.6; O2SAT 100
[2022-02-07] MEDS: trazodone 50 mg Tablet PO (20:45)
--- NOTE | 2022-02-07 20:52 | PC.NURSE ---
Patient requested medication to help her sleep through the night. She does not like to sleep in new places. Patient was given 50mg of Trazadone.
[2022-02-08 06:00] VITALS: BP 116/71; PULSE 68; RESP 16; TEMP 36.8; O2SAT 99
[2022-02-08] MEDS: nicotine 2 mg Gum BUCCAL (08:07)
[2022-02-08] MEDS: propranolol 20 mg Tablet PO (08:32)
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
[2022-02-08 14:00] VITALS: BP 151/68; PULSE 89; RESP 16; TEMP 37; O2SAT 97
[2022-02-08 14:21] VITALS: RESP 18; O2SAT 98
[2022-02-08] MEDS: methadone 10 mg Tablet 65 MG PO (14:21)
[2022-02-08 15:30] VITALS: RESP 18; O2SAT 98
[2022-02-08 17:19] VITALS: RESP 18; O2SAT 98
== END 2022-02-08 16:00 | disposition home or self-care (01) | DRG 881 ==
LOC: ER 13:07 → NP 02-05 14:30
PROVIDERS: Admitting Provider Psychiatry & Neurology Psychiatry; Emergency Provider Emergency Medicine; PCP Nurse Practitioner Family; Visit Provider Psychiatry & Neurology Psychiatry
DX: F32.A Depression, unspecified (principal); F11.20 Opioid dependence, uncomplicated; R45.850 Homicidal ideations; F17.290 Nicotine dependence, other tobacco product, uncomplicated; Z62.810 Personal history of physical and sexual abuse in childhood; F41.9 Anxiety disorder, unspecified; F43.25 Adjustment disorder with mixed disturbance of emotions and conduct; F43.10 Post-traumatic stress disorder, unspecified
CPT/HCPCS: 36415; 70450; 80053; 80306; 80307; 81025; 83690; 84439; 84443; 85025; 97150; 97165; 99285

== ENCOUNTER 2022-03-04 20:44 | Emergency (ER) | payer MEDICAID, SELFPAY ==
[2022-03-04 20:50] VITALS: BP 137/91; PULSE 97; RESP 20; TEMP 37.1; O2SAT 100; BMI 24.5
[2022-03-04 22:00] LABS: HCG Qualitative Urine. Positive (Negative)
--- NOTE | 2022-03-04 22:03 | ED_ITS ---
Documented by User: JENNIFER Holliday 03/05/22 00:03 HPI - Abdominal Pain General: Chief Complaint: Abdominal Pain Stated Complaint: ADB Pain Cramping Time Seen by Provider: 03/04/22 21:50 History of Present Illness: Patient states he is positive test. Now she says she has reflux and upper abdominal discomfort and belching. He is able to hold food down, has no fever or chills. Denies any vaginal discharge or bleeding. Associated Symptoms: Reports belching, excessive flatus and heartburn; Denies chills, fever(s), nausea and vomiting Related Data: Date of Last Menstrual Period: 06/21/20 Review of Systems Narrative: Patient not sure how far along she might be. 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 History of hemorrhage Primary osteoarthritis, right shoulder Tendinopathy of right rotator cuff Surgical History H/O abdominoplasty (~11/2015) H/O knee surgery R knee History of reduction of closed fracture (~02/25/14) Closed Reduction and percutaneous internal fixation with 7.0 cannulated screws times 2, 02/25/2014, by Dr Koch History of surgery on arm 8 surgeries on R arm with skin graft S/P breast augmentation with lift. Silicone gel implants. Family History Grandmother No problems noted. Father Diabetes Heart disease Hypercholesteremia Mother No problems noted. Grandfather Diabetes Paternal Heart disease Paternal Family/Other Diabetes Paternal side in general Heart disease Paternal Aunts, Maternal uncle Sister Hypertension Brother Hypertension Social History Smoking and tobacco status: former smoker Quit status (tobacco): has quit using tobacco Year quit tobacco: 2012 Former quit date comment: Was at most 1 pack/week. Started age 23 Alcohol intake: former Year of sobriety/quit date alcohol: 2012 History of recent travel: No Additional social history: Drug use: former- Marijuana as a teen Female Reproductive History: Date of last menstrual period: 06/21/20 Physical Exam Const: COMMON NORMALS: no acute distress, patient oriented x3 and alert HENMT: COMMON NORMALS: normocephalic and external ears normal HEAD & SCALP: normocephalic EXTERNAL EAR: Yes external ears normal Eye: COMMON NORMALS: EOMs intact bilaterally Neck/C-Spine: COMMON NORMALS: no JVD Resp: COMMON NORMALS: normal respiratory effort and No use of accessory muscles Cardio: COMMON NORMALS: no JVD GI: INSPECTION: Yes normal to inspection AUSCULTATION: Yes normoactive bowel sounds PALPATION: Yes Tenderness to palpation present (GI) (Upper epigastric area), No Guarding due to palpation present (GI) and Yes Other GI palpation findings present (Angeles sign negative) Extremity: COMMON NORMALS: normal to inspection and full ROM Neuro: COMMON NORMALS: patient oriented x3 SENSORIUM/ORIENTATION: Yes alert Psych: COMMON NORMALS: mental status grossly normal Skin: COMMON NORMALS: no rashes or lesions noted GENERAL SKIN EXAM: no rashes or lesions noted Course Vital Signs: Vital signs: Vital Signs Temperature 98.7 F 03/04/22 20:50 Pulse Rate 97 03/04/22 20:50 Respiratory Rate 20 H 03/04/22 20:50 Blood Pressure 137/91 03/04/22 20:50 Pulse Oximetry 100 03/04/22 20:50 MDM - Abdominal Pain Medical Decision Making Patient presents with positive test. Also with reflux. Patient's UA did confirm see and UA did not show any signs of overt infection. Patient's abdominal discomfort which is upper epigastric and she has history of GERD was relieved with GI cocktail. Patient was given referral to OB Lab Data Labs/Radiology: Laboratory Results HCG, Qual Positive (Negative) H 03/04/22 21:51 Urine Color Yellow (Yellow) 03/04/22 21:51 Urine Appearance Clear (CLEAR) 03/04/22 21:51 Urine pH 8 (5-7) H 03/04/22 21:51 Ur Specific [place] 1.015 (1.005-1.030) 03/04/22 21:51 Urine Protein Neg (Negative) 03/04/22 21:51 Urine Glucose (UA) Norm (Normal) 03/04/22 21:51 Urine Ketones Negative (Negative) 03/04/22 21:51 Urine Blood Neg (Negative) 03/04/22 21:51 Urine Nitrate Negative (Negative) 03/04/22 21:51 Urine Bilirubin Neg (Negative) 03/04/22 21:51 Prot Sulfosalicylic Acd Negative (Negative) 03/04/22 21:51 Urine Urobilinogen Norm mg/dL (Negative) 03/04/22 21:51 Ur Leukocyte Esterase Trace (Negative) H 03/04/22 21:51 Urine RBC 0-4 /hpf (0-2) H 03/04/22 21:51 Urine WBC 5-10 /hpf (0-5) H 03/04/22 21:51 Ur Squamous Epith Cells 5-10 /hpf (0-5) H 03/04/22 21:51 Amorphous Sediment Not Reportable 03/04/22 21:51 Urine Bacteria 1+ /hpf (NONE) H 03/04/22 21:51 Urine Mucus 3+ /hpf 03/04/22 21:51 Discharge Plan Discharge Patient Disposition: Home Clinical Impression: , Acid reflux Condition: Stable Prescriptions: New prenat.vits,harsha,[id number] Tablet 1 tab PO DAILY Qty: 30 0RF No Action multivitamin Tablet 1 tab PO DAILY 0RF celecoxib 200 mg capsule 200 mg PO DAILY PRN (Reason: Pain) 0RF omeprazole 40 mg capsule,delayed release(DR/EC) 40 mg PO DAILY PRN (Reason: Heartburn) 0RF propranolol 20 mg Tablet 20 mg PO TID PRN (Reason: Anxiety) 30 Days Qty: 90 1RF methadone tablet 70 mg PO DAILY 0RF Discharge Orders: Discharge ED (Routine); Ordered 03/04/22 Ordered By: Clarence Hopson Referrals: Monse Vogt APN [Primary Care Provider] - Discharge Diet: Advance as tolerated Discharge Activity: Resume usual activity Patient Instructions: Gastritis (ED), GERD (Gastroesophageal Reflux Disease) (ED) Activity Restrictions/Additional Instructions: Follow-up with medical provider as directed. Take medications as prescribed. Return to the ER or your medical provider if condition worsens. Please read and understand discharge instructions. If any questions ask please. Hospital contact with appointment for [facility] will be as per your request. Stay away from fried greasy type foods. Take your medication as directed. Coding Level of Care Code ED Pipe Racker for Chg Fwd Exam Comprehensive Documented by User: Jeremiah Zavala DO 03/05/22 00:05 HPI - Abdominal Pain General: Chief Complaint: Abdominal Pain Stated Complaint: ADB Pain Cramping Time Seen by Provider: 03/04/22 21:50 PFSH ED PFSH: Medical History Chronic shoulder pain Hepatitis C Diagnosed in 2012 during . History of hemorrhage Primary osteoarthritis, right shoulder Tendinopathy of right rotator cuff Surgical History H/O abdominoplasty (~11/2015) H/O knee surgery R knee History of reduction of closed fracture (~02/25/14) Closed Reduction and percutaneous internal fixation with 7.0 cannulated screws times 2, 02/25/2014, by Dr Koch History of surgery on arm 8 surgeries on R arm with skin graft S/P breast augmentation with lift. Silicone gel implants. Family History Grandmother No problems noted. Father Diabetes Heart disease Hypercholesteremia Mother No problems noted. Grandfather Diabetes Paternal Heart disease Paternal Family/Other Diabetes Paternal side in general Heart disease Paternal Aunts, Maternal uncle Sister Hypertension Brother Hypertension Social History Smoking and tobacco status: former smoker Quit status (tobacco): has quit using tobacco Year quit tobacco: 2012 Former quit date comment: Was at most 1 pack/week. Started age 23 Alcohol intake: former Year of sobriety/quit date alcohol: 2012 History of recent travel: No Additional social history: Drug use: former- Marijuana as a teen Course Vital Signs: Vital signs: Vital Signs Temperature 98.7 F 03/04/22 20:50 Pulse Rate 97 03/04/22 20:50 Respiratory Rate 20 H 03/04/22 20:50 Blood Pressure 137/91 03/04/22 20:50 Pulse Oximetry 100 03/04/22 20:50 MDM - Abdominal Pain Medical Decision Making Patient presents with positive test. Also with reflux. Patient's UA did confirm see and UA did not show any signs of overt infection. Patient's abdominal discomfort which is upper epigastric and she has history of GERD was relieved with GI cocktail. Patient was given referral to OB This patient was originally seen by JENNIFER Jiang.? I agree with his history, evaluation, and treatment. Lab Data Labs/Radiology: Laboratory Results HCG, Qual Positive (Negative) H 03/04/22 21:51 Urine Color Yellow (Yellow) 03/04/22 21:51 Urine Appearance Clear (CLEAR) 03/04/22 21:51 Urine pH 8 (5-7) H 03/04/22 21:51 Ur Specific [place] 1.015 (1.005-1.030) 03/04/22 21:51 Urine Protein Neg (Negative) 03/04/22 21:51 Urine Glucose (UA) Norm (Normal) 03/04/22 21:51 Urine Ketones Negative (Negative) 03/04/22 21:51 Urine Blood Neg (Negative) 03/04/22 21:51 Urine Nitrate Negative (Negative) 03/04/22 21:51 Urine Bilirubin Neg (Negative) 03/04/22 21:51 Prot Sulfosalicylic Acd Negative (Negative) 03/04/22 21:51 Urine Urobilinogen Norm mg/dL (Negative) 03/04/22 21:51 Ur Leukocyte Esterase Trace (Negative) H 03/04/22 21:51 Urine RBC 0-4 /hpf (0-2) H 03/04/22 21:51 Urine WBC 5-10 /hpf (0-5) H 03/04/22 21:51 Ur Squamous Epith Cells 5-10 /hpf (0-5) H 03/04/22 21:51 Amorphous Sediment Not Reportable 03/04/22 21:51 Urine Bacteria 1+ /hpf (NONE) H 03/04/22 21:51 Urine Mucus 3+ /hpf 03/04/22 21:51 Discharge Plan Discharge Patient Disposition: Home Clinical Impression: , Acid reflux Condition: Stable Prescriptions: New prenat.vits,harsha,[id number] Tablet 1 tab PO DAILY Qty: 30 0RF No Action multivitamin Tablet 1 tab PO DAILY 0RF celecoxib 200 mg capsule 200 mg PO DAILY PRN (Reason: Pain) 0RF omeprazole 40 mg capsule,delayed release(DR/EC) 40 mg PO DAILY PRN (Reason: Heartburn) 0RF propranolol 20 mg Tablet 20 mg PO TID PRN (Reason: Anxiety) 30 Days Qty: 90 1RF methadone tablet 70 mg PO DAILY 0RF Discharge Orders: Discharge ED (Routine); Ordered 03/04/22 Ordered By: Clarence Hopson Referrals: Monse Vogt APN [Primary Care Provider] - Discharge Diet: Advance as tolerated Discharge Activity: Resume usual activity Patient Instructions: Gastritis (ED), GERD (Gastroesophageal Reflux Disease) (ED) Activity Restrictions/Additional Instructions: Follow-up with medical provider as directed. Take medications as prescribed. Return to the ER or your medical provider if condition worsens. Please read and understand discharge instructions. If any questions ask please. Hospital contact with appointment for [facility] will be as per your request. Stay away from fried greasy type foods. Take your medication as directed. Coding Level of Care Code ED Pipe Racker for Kanwal Fwd Exam Comprehensive
[2022-03-04 22:05] LABS: Bilirubin Urine Neg (Negative); Blood Urine Neg (Negative); Glucose Urine UA Norm (Normal); Ketones Urine Negative (Negative); Nitrate Urine Negative (Negative); Protein Urine Neg (Negative); Specific Gravity, Urine 1.015 (1.005-1.030); Urine Appearance Clear (CLEAR); Urine Color Yellow (Yellow); pH Urine 8 (5-7)
[2022-03-04 22:06] LABS: Add Urine Microscopic? YES; Leukocyte Esterase Urine Trace (Negative); Sulfosalicylic Acid Urine Negative (Negative); Urobilinogen Urine Norm (Negative)
[2022-03-04 22:07] LABS: RBC Urine 0-4 /hpf (0-2)
[2022-03-04 22:08] LABS: Add Urine Culture? No; Bacteria Urine 1+ /hpf; Mucus Urine 3+ /hpf
[2022-03-04] MEDS: lidocaine 2% viscous 15 ML, aluminum-mag hydrox-simethicon 30 ML, sucralfate oral liq 1 GM PO (22:13)
--- NOTE | 2022-03-07 15:45 | DCPLANNER ---
group exercise manager had message to schedule a follow up appointment for patient with OB at [facility]. group exercise manager called [facility], made the referral for patient to be seen by an OB provider. group exercise manager was told that patients information would be sent to provider for review and that the nurse would call patient with appointment information. group exercise manager called [phone] and [phone], unable to speak with patient, a voicemail was left for patient to return briefcase sewer phone call.
== END 2022-03-04 22:59 | disposition home or self-care (01) ==
PROVIDERS: Emergency Provider Nurse Practitioner Family; PCP Nurse Practitioner Family
DX: O26.899 Other specified pregnancy related conditions, unspecified trimester (principal); K21.9 Gastro-esophageal reflux disease without esophagitis; Z87.891 Personal history of nicotine dependence
CPT/HCPCS: 81001; 81025; 99283

== ENCOUNTER 2022-03-06 12:57 | Emergency (ER) | payer MEDICAID, SELFPAY ==
[2022-03-06 13:58] VITALS: BP 123/80; PULSE 82; RESP 16; TEMP 37.1; O2SAT 100; BMI 25.4
[2022-03-06 16:10] LABS: Alanine Aminotransferase 29 U/L (0-33); Alkaline Phosphatase 85 IU/L (35-105); Blood Urea Nitrogen 7 mg/dL (6-20); Calcium 8.8 mg/dL (8.5-10.5); Carbon Dioxide 18 mmol/L (22-29); Chloride 100 mmol/L (98-107); Globulin 2.9 g/dL (1.3-4.6); Glucose 88 mg/dL (65-115); Osmolality Calculated 271 mOsm/kg (285-295); Sodium 132 mmol/L (136-145); Total Bilirubin 0.3 mg/dL (0.15-1.2); Total Protein 6.9 g/dL (6.6-8.7)
[2022-03-06 16:24] LABS: Anion Gap 18.3 (5-19)
[2022-03-06 16:24] LABS: Add Urine Microscopic? NO; Charge for UA Resulting for Rev
[2022-03-06 16:25] LABS: Aspartate Amino Transferase 30 U/L (0-32); Potassium 4.3 mmol/L (3.5-5.1)
[2022-03-06 16:33] LABS: Bilirubin Urine Neg (Negative); Blood Urine Neg (Negative); Glucose Urine UA Norm (Normal); Ketones Urine Negative (Negative); Leukocyte Esterase Urine Negative (Negative); Nitrate Urine Negative (Negative); Protein Urine Neg (Negative); Specific Gravity, Urine 1.015 (1.005-1.030); Urine Appearance Clear (CLEAR); Urine Color Yellow (Yellow); Urobilinogen Urine 1 mg/dL (Negative); pH Urine 7 (5-7)
--- NOTE | 2022-03-06 17:47 | ED_ITS ---
Documented by User: JENNIFER Holliday 03/06/22 21:22 HPI - Abdominal Pain General: Chief Complaint: Abdominal Pain Stated Complaint: pos ; cramping and spotting Time Seen by Provider: 03/06/22 17:26 History of Present Illness: Seen here because of bloating in her upper abdomen. Also states she wants a quantitative hCG see how far along she is. She says she is really not spotting or bleeding at all. She has history of reflux seen other day and GI cocktail helped her immensely. Patient is not a made appointment with OB yet. Associated Symptoms: Reports bloating and heartburn; Denies chills, fever(s), nausea and vomiting Related Data: Date of Last Menstrual Period: 06/21/20 Review of Systems Const: Denies: fever(s), chills or body aches Eyes: Denies: eye discomfort ENMT: Denies: throat pain Card: Denies: chest pain Resp: Denies: dyspnea GI: Reports: heartburn and bloating; Denies: abdominal pain, nausea or vomiting Skin/Breast: Denies: rash Neuro: Denies: headache(s) Psych: Denies: depression or suicidal ideation PFSH ED PFSH: Medical History Chronic shoulder pain Hepatitis C Diagnosed in 2013 during . History of hemorrhage Primary osteoarthritis, right shoulder Tendinopathy of right rotator cuff Surgical History H/O abdominoplasty (~11/2015) H/O knee surgery R knee History of reduction of closed fracture (~02/25/14) Closed Reduction and percutaneous internal fixation with 7.0 cannulated screws times 2, 02/25/2014, by Dr Koch History of surgery on arm 8 surgeries on R arm with skin graft S/P breast augmentation with lift. Silicone gel implants. Family History Grandmother No problems noted. Father Diabetes Heart disease Hypercholesteremia Mother No problems noted. Grandfather Diabetes Paternal Heart disease Paternal Family/Other Diabetes Paternal side in general Heart disease Paternal Aunts, Maternal uncle Sister Hypertension Brother Hypertension Social History Smoking and tobacco status: former smoker Quit status (tobacco): has quit using tobacco Year quit tobacco: 2012 Former quit date comment: Was at most 1 pack/week. Started age 23 Alcohol intake: former Year of sobriety/quit date alcohol: 2012 History of recent travel: No Additional social history: Drug use: former- Marijuana as a teen Female Reproductive History: Date of last menstrual period: 06/21/20 Physical Exam Const: COMMON NORMALS: no acute distress, patient oriented x3 and alert HENMT: COMMON NORMALS: normocephalic and external ears normal HEAD & SCALP: normocephalic EXTERNAL EAR: Yes external ears normal Eye: COMMON NORMALS: EOMs intact bilaterally Neck/C-Spine: COMMON NORMALS: no JVD Resp: COMMON NORMALS: normal respiratory effort and No use of accessory muscles Cardio: COMMON NORMALS: no JVD GI: INSPECTION: Yes normal to inspection AUSCULTATION: Yes normoactive bowel sounds PALPATION: Yes Tenderness to palpation present (GI) (Upper GI area more on the left) Extremity: COMMON NORMALS: normal to inspection and full ROM Neuro: COMMON NORMALS: patient oriented x3 SENSORIUM/ORIENTATION: Yes alert Psych: COMMON NORMALS: mental status grossly normal Skin: COMMON NORMALS: no rashes or lesions noted GENERAL SKIN EXAM: no rashes or lesions noted Course Vital Signs: Vital signs: Vital Signs Temperature 98.7 F 03/06/22 13:58 Pulse Rate 82 03/06/22 13:58 Respiratory Rate 16 03/06/22 13:58 Blood Pressure 123/80 03/06/22 13:58 Pulse Oximetry 100 03/06/22 13:58 MDM - Abdominal Pain Medical Decision Making Patient presents with wanting no how far along she is in her . She said she knows she had been bloating and she had bought some diet pills and she was not sure sure if she should start taking those. Patient denies and again denies that she really has had any spotting or bleeding- she would just saying that so she get a quantitative test. Has history of reflux. Patient denies any abdominal discomfort presently. Quantitative hCG was performed which shows she might be 2 to 3 months along. Patient again requests to go to [facility] to see Dr. Sexton if possible because she does not want to go to [facility] OB doctor. Lab Data : 03/06/22 15:20 03/06/22 15:20 Labs/Radiology: Laboratory Results WBC Cancelled 03/06/22 15:20 Corrected WBC Cancelled 03/06/22 15:20 RBC Cancelled 03/06/22 15:20 Hgb Cancelled 03/06/22 15:20 Hct Cancelled 03/06/22 15:20 MCV Cancelled 03/06/22 15:20 MCH Cancelled 03/06/22 15:20 MCHC Cancelled 03/06/22 15:20 RDW Cancelled 03/06/22 15:20 Plt Count Cancelled 03/06/22 15:20 MPV Cancelled 03/06/22 15:20 Gran % Cancelled 03/06/22 15:20 Neut % (Auto) Cancelled 03/06/22 15:20 Lymph % (Auto) Cancelled 03/06/22 15:20 Schleicher % (Auto) Cancelled 03/06/22 15:20 Eos % (Auto) Cancelled 03/06/22 15:20 Baso % (Auto) Cancelled 03/06/22 15:20 Neut # (Auto) Cancelled 03/06/22 15:20 Lymph # (Auto) Cancelled 03/06/22 15:20 Schleicher # (Auto) Cancelled 03/06/22 15:20 Eos # (Auto) Cancelled 03/06/22 15:20 Baso # (Auto) Cancelled 03/06/22 15:20 Absolute Gran (auto) Cancelled 03/06/22 15:20 Nucleated RBC % (auto) Cancelled 03/06/22 15:20 Nucleated RBCs # Cancelled 03/06/22 15:20 Sodium 132 mmol/L (136-145) L 03/06/22 15:20 Potassium 4.3 mmol/L (3.5-5.1) 03/06/22 15:20 Chloride 100 mmol/L (98-107) 03/06/22 15:20 Carbon Dioxide 18 mmol/L (22-29) L 03/06/22 15:20 Anion Gap 18.3 (5-19) 03/06/22 15:20 BUN 7 mg/dL (6-20) 03/06/22 15:20 Creatinine 0.3 mg/dL (0.5-0.9) L 03/06/22 15:20 GFR Calculation 249.0 mL/min (90-130) H 03/06/22 15:20 Glucose 88 mg/dL (65-115) 03/06/22 15:20 Calculated Osmolality 271 mOsm/kg (285-295) L 03/06/22 15:20 Calcium 8.8 mg/dL (8.5-10.5) 03/06/22 15:20 Total Bilirubin 0.3 mg/dL (0.15-1.2) 03/06/22 15:20 AST 30 U/L (0-32) 03/06/22 15:20 ALT 29 U/L (0-33) 03/06/22 15:20 Alkaline Phosphatase 85 IU/L (35-105) 03/06/22 15:20 Total Protein 6.9 g/dL (6.6-8.7) 03/06/22 15:20 Albumin 4.0 g/dL (3.5-5.2) 03/06/22 15:20 Globulin 2.9 g/dL (1.3-4.6) 03/06/22 15:20 Ser , Semi-Qnt 577691.00 mIU/mL 03/06/22 15:20 Urine Color Yellow (Yellow) 03/06/22 16:00 Urine Appearance Clear (CLEAR) 03/06/22 16:00 Urine pH 7 (5-7) 03/06/22 16:00 Ur Specific [place] 1.015 (1.005-1.030) 03/06/22 16:00 Urine Protein Neg (Negative) 03/06/22 16:00 Urine Glucose (UA) Norm (Normal) 03/06/22 16:00 Urine Ketones Negative (Negative) 03/06/22 16:00 Urine Blood Neg (Negative) 03/06/22 16:00 Urine Nitrate Negative (Negative) 03/06/22 16:00 Urine Bilirubin Neg (Negative) 03/06/22 16:00 Urine Urobilinogen 1 mg/dL (Negative) H 03/06/22 16:00 Ur Leukocyte Esterase Negative (Negative) 03/06/22 16:00 Discharge Plan Discharge Patient Disposition: Home Clinical Impression: , Acid reflux Condition: Stable Prescriptions: No Action multivitamin Tablet 1 tab PO DAILY 0RF celecoxib 200 mg capsule 200 mg PO DAILY PRN (Reason: Pain) 0RF omeprazole 40 mg capsule,delayed release(DR/EC) 40 mg PO DAILY PRN (Reason: Heartburn) 0RF propranolol 20 mg Tablet 20 mg PO TID PRN (Reason: Anxiety) 30 Days Qty: 90 1RF methadone tablet 70 mg PO DAILY 0RF prenat.vits,harsha,vua-ekum-tdmbb Tablet 1 tab PO DAILY Qty: 30 0RF Discharge Orders: Discharge ED (Routine); Ordered 03/06/22 Ordered By: Clarence Hopson Referrals: Monse Vogt APN [Primary Care Provider] - Discharge Diet: Usual diet Discharge Activity: Resume usual activity Patient Instructions: (ED) Activity Restrictions/Additional Instructions: Will contact an appoint for Dr. Sexton office. Take vitamins as directed. Coding Level of Care Code ED Family Day Care Worker for Chg Fwd Exam Comprehensive Documented by User: Jeremiah Zavala, 03/07/22 01:24 HPI - Abdominal Pain General: Chief Complaint: Abdominal Pain Stated Complaint: pos ; cramping and spotting Time Seen by Provider: 03/06/22 17:26 History of Present Illness: Seen here because of bloating in her upper abdomen. Also states she wants a quantitative hCG see how far along she is. She says she is really not spotting or bleeding at all. She has history of reflux seen other day and GI cocktail helped her immensely. Patient is not a made appointment with OB yet. This patient was originally seen by JENNIFER Jiang.? I agree with his history, evaluation, and treatment. [facility] ED PFSH: Medical History Chronic shoulder pain Hepatitis C Diagnosed in 2013 during . History of hemorrhage Primary osteoarthritis, right shoulder Tendinopathy of right rotator cuff Surgical History H/O abdominoplasty (~11/2015) H/O knee surgery R knee History of reduction of closed fracture (~02/25/14) Closed Reduction and percutaneous internal fixation with 7.0 cannulated screws times 2, 02/25/2014, by Dr Koch History of surgery on arm 8 surgeries on R arm with skin graft S/P breast augmentation with lift. Silicone gel implants. Family History Grandmother No problems noted. Father Diabetes Heart disease Hypercholesteremia Mother No problems noted. Grandfather Diabetes Paternal Heart disease Paternal Family/Other Diabetes Paternal side in general Heart disease Paternal Aunts, Maternal uncle Sister Hypertension Brother Hypertension Social History Smoking and tobacco status: former smoker Quit status (tobacco): has quit using tobacco Year quit tobacco: 2012 Former quit date comment: Was at most 1 pack/week. Started age 23 Alcohol intake: former Year of sobriety/quit date alcohol: 2012 History of recent travel: No Additional social history: Drug use: former- Marijuana as a teen Course Vital Signs: Vital signs: Vital Signs Temperature 98.7 F 03/06/22 13:58 Pulse Rate 82 03/06/22 13:58 Respiratory Rate 16 03/06/22 13:58 Blood Pressure 123/80 03/06/22 13:58 Pulse Oximetry 100 03/06/22 13:58 MDM - Abdominal Pain Lab Data : 03/06/22 15:20 03/06/22 15:20 Labs/Radiology: Laboratory Results WBC Cancelled 03/06/22 15:20 Corrected WBC Cancelled 03/06/22 15:20 RBC Cancelled 03/06/22 15:20 Hgb Cancelled 03/06/22 15:20 Hct Cancelled 03/06/22 15:20 MCV Cancelled 03/06/22 15:20 MCH Cancelled 03/06/22 15:20 MCHC Cancelled 03/06/22 15:20 RDW Cancelled 03/06/22 15:20 Plt Count Cancelled 03/06/22 15:20 MPV Cancelled 03/06/22 15:20 Gran % Cancelled 03/06/22 15:20 Neut % (Auto) Cancelled 03/06/22 15:20 Lymph % (Auto) Cancelled 03/06/22 15:20 Schleicher % (Auto) Cancelled 03/06/22 15:20 Eos % (Auto) Cancelled 03/06/22 15:20 Baso % (Auto) Cancelled 03/06/22 15:20 Neut # (Auto) Cancelled 03/06/22 15:20 Lymph # (Auto) Cancelled 03/06/22 15:20 Schleicher # (Auto) Cancelled 03/06/22 15:20 Eos # (Auto) Cancelled 03/06/22 15:20 Baso # (Auto) Cancelled 03/06/22 15:20 Absolute Gran (auto) Cancelled 03/06/22 15:20 Nucleated RBC % (auto) Cancelled 03/06/22 15:20 Nucleated RBCs # Cancelled 03/06/22 15:20 Sodium 132 mmol/L (136-145) L 03/06/22 15:20 Potassium 4.3 mmol/L (3.5-5.1) 03/06/22 15:20 Chloride 100 mmol/L (98-107) 03/06/22 15:20 Carbon Dioxide 18 mmol/L (22-29) L 03/06/22 15:20 Anion Gap 18.3 (5-19) 03/06/22 15:20 BUN 7 mg/dL (6-20) 03/06/22 15:20 Creatinine 0.3 mg/dL (0.5-0.9) L 03/06/22 15:20 GFR Calculation 249.0 mL/min (90-130) H 03/06/22 15:20 Glucose 88 mg/dL (65-115) 03/06/22 15:20 Calculated Osmolality 271 mOsm/kg (285-295) L 03/06/22 15:20 Calcium 8.8 mg/dL (8.5-10.5) 03/06/22 15:20 Total Bilirubin 0.3 mg/dL (0.15-1.2) 03/06/22 15:20 AST 30 U/L (0-32) 03/06/22 15:20 ALT 29 U/L (0-33) 03/06/22 15:20 Alkaline Phosphatase 85 IU/L (35-105) 03/06/22 15:20 Total Protein 6.9 g/dL (6.6-8.7) 03/06/22 15:20 Albumin 4.0 g/dL (3.5-5.2) 03/06/22 15:20 Globulin 2.9 g/dL (1.3-4.6) 03/06/22 15:20 Ser , Semi-Qnt 134417.00 mIU/mL 03/06/22 15:20 Urine Color Yellow (Yellow) 03/06/22 16:00 Urine Appearance Clear (CLEAR) 03/06/22 16:00 Urine pH 7 (5-7) 03/06/22 16:00 Ur Specific [place] 1.015 (1.005-1.030) 03/06/22 16:00 Urine Protein Neg (Negative) 03/06/22 16:00 Urine Glucose (UA) Norm (Normal) 03/06/22 16:00 Urine Ketones Negative (Negative) 03/06/22 16:00 Urine Blood Neg (Negative) 03/06/22 16:00 Urine Nitrate Negative (Negative) 03/06/22 16:00 Urine Bilirubin Neg (Negative) 03/06/22 16:00 Urine Urobilinogen 1 mg/dL (Negative) H 03/06/22 16:00 Ur Leukocyte Esterase Negative (Negative) 03/06/22 16:00 Discharge Plan Discharge Patient Disposition: Home Clinical Impression: , Acid reflux Condition: Stable Prescriptions: No Action multivitamin Tablet 1 tab PO DAILY 0RF celecoxib 200 mg capsule 200 mg PO DAILY PRN (Reason: Pain) 0RF omeprazole 40 mg capsule,delayed release(DR/EC) 40 mg PO DAILY PRN (Reason: Heartburn) 0RF propranolol 20 mg Tablet 20 mg PO TID PRN (Reason: Anxiety) 30 Days Qty: 90 1RF methadone tablet 70 mg PO DAILY 0RF prenat.vits,harsha,[id number] Tablet 1 tab PO DAILY Qty: 30 0RF Discharge Orders: Discharge ED (Routine); Ordered 03/06/22 Ordered By: Clarence Hopson Referrals: Vogt,CARI Shea [Primary Care Provider] - Discharge Diet: Usual diet Discharge Activity: Resume usual activity Patient Instructions: (ED) Activity Restrictions/Additional Instructions: Will contact an appoint for Dr. Sexton office. Take vitamins as directed. Coding Level of Care Code ED Family Day Care Worker for Chg Fwd Exam Comprehensive
== END 2022-03-06 18:08 | disposition home or self-care (01) ==
PROVIDERS: Physician Assistant; Emergency Provider Nurse Practitioner Family; PCP Nurse Practitioner Family
DX: O99.619 Diseases of the digestive system complicating pregnancy, unspecified trimester (principal); K21.9 Gastro-esophageal reflux disease without esophagitis; Z3A.00 Weeks of gestation of pregnancy not specified
CPT/HCPCS: 36415; 80053; 81003; 84702; 85025; 99282

== ENCOUNTER 2022-03-09 18:13 | Outpatient (CLI) | payer MEDICAID, SELFPAY | END 2022-03-09 18:14 | disposition home or self-care (01) | LOC: LAB 18:15 | PROVIDERS: PCP Nurse Practitioner Family; Visit Provider Obstetrics & Gynecology | DX: Z34.90 Encounter for supervision of normal pregnancy, unspecified, unspecified trimester (principal) | CPT/HCPCS: 36415; 84702 ==

== ENCOUNTER 2022-10-02 13:19 | Inpatient (IN) | payer MEDICAID, SELFPAY ==
[2022-10-02] VITALS (36 sets, daily range): BP systolic 125–172; BP diastolic 57–87; PULSE 51–78; RESP 15–16; TEMP 36.4–36.9; O2SAT 98–100; BMI 23.3
--- NOTE | 2022-10-02 | USR_ITS ---
PROCEDURE INFORMATION: Exam: US , Limited Exam date and time: 10/02/2022 4:36 PM Age: 37 years old Clinical indication: Lmp or gestational age (in weeks): 38w5d; Other: Labor; ; Additional info: Placenta location LABS AND CLINICAL REPORTS: Last menstrual period start date: 01/04/2022 Gestational age (Established): 38 w 5 d Estimated due date (Established): 10/11/2022 TECHNIQUE: Imaging protocol: Real-time ultrasound of the maternal uterus with image documentation. Exam focused on the clinical indication. COMPARISON: US OB >= 14 weeks fetus [id number] 05/25/2022 4:24 PM FINDINGS: Gestation: Single live intrauterine gestation. heart rate: 109 bpm. presentation: Cephalic presentation. Placenta: Anterior left fundal placental position. The internal cervical os is obscured by the head. US/US OB limited [id number] IMPRESSION: Anterior high left placenta. No placenta previa is visible.
[2022-10-02] MEDS: lactated ringers 1,000 ML 999 ML IV (14:08)
[2022-10-02] MEDS: dextrose 5%-lactated ringers 1,000 ML 125 ML IV (14:08)
[2022-10-02] MEDS: ampicillin 2,000 MG in sodium chloride 0.9% (plus) 50 ML 100 MG IV (14:09)
[2022-10-02] MEDS: fentaNYL 50 mcg/mL INJ 2mL IVP (14:09)
[2022-10-02 14:29] LABS: Amphetamines Screen Urine Negative (Negative); Barbiturates Screen Urine Negative (Negative); Benzodiazepines Screen Urine Negative (Negative); Cocaine Screen Urine Negative (Negative); Opiate Screen Urine Negative (Negative); PCP Screen Urine Negative (Negative); THC Screen Urine Negative (Negative)
[2022-10-02 14:36] LABS: Bilirubin Urine Neg (Negative); Blood Urine 3+ (Negative); Glucose Urine UA Norm (Normal); Ketones Urine Negative (Negative); Leukocyte Esterase Urine 1+ (Negative); Nitrate Urine Negative (Negative); Protein Urine 1+ (Negative); Specific Gravity, Urine 1.015 (1.005-1.030); Urine Appearance Hazy (CLEAR); Urine Color Yellow (Yellow); Urobilinogen Urine 1 mg/dL (Negative); pH Urine 6.5 (5-7)
[2022-10-02 14:37] LABS: RBC Urine TOO NUMEROUS TO CNT /hpf (0-2)
[2022-10-02 14:39] LABS: WBC Urine 15-25 /hpf (0-5)
[2022-10-02 14:40] LABS: Bacteria Urine 1+ /hpf; Mucus Urine 1+ /hpf
[2022-10-02 14:41] LABS: Add Urine Culture? No
[2022-10-02 14:45] LABS: Basophils # 0.1 10^3/uL (0.0-0.1); Basophils % 0.7 %; Eosinophils # 0.3 10^3/uL (0.0-0.8); Hematocrit 36.1 % (37.0-47.0); Hemoglobin 11.3 g/dL (11.5-15.3); Lymphocytes # 2.4 10^3/uL (0.8-4.8); Lymphocytes % 33.5 %; Mean Corpuscular HGB Conc 31.3 g/dL (30.0-36.0); Mean Corpuscular Hemoglobin 25.4 pg (28.0-34.0); Mean Corpuscular Volume 81.1 fl (81-99); Mean Platelet Volume 10.9 fL (7.4-10.4); Monocytes # 0.5 10^3/uL (0.2-0.9); Monocytes % 6.8 %; Neutrophils # 3.83 10^3/uL (1.8-7.7); Neutrophils % 54.3 %; Nucleated Red Blood Cells % 0 %; Platelet Count 246 10^3/cmm (130-400); Red Blood Count 4.45 10^6/uL (4.1-5.3); Red Cell Distribution Width 15.5 % (12.1-15.1); White Blood Count 7.1 10^3/uL (4.0-10.0)
[2022-10-02 14:49] LABS: Rubella IgG 108.2 IU/mL (0.0-10.0)
[2022-10-02 14:50] LABS: Hepatitis B Surface Antigen Non-Reactive (Nonreactive)
[2022-10-02 14:57] LABS: HIV 1 & 2 Antibody Non-Reactive (Non-Reactiv); HIV 1 & 2 Antigen Non-Reactive (Non-Reactiv)
[2022-10-02 15:12] LABS: Rapid Plasma Reagin Syphilis Nonreactive (Nonreactive)
--- NOTE | 2022-10-02 15:19 | ANES.PREANE2 ---
Pre-Anesthetic Assessment Height/Weight: Height 1.63 m Weight 61.689 kg Pulse BP 64 167/82 10/02/22 14:56 10/02/22 14:56 Preop Diagnosis: Active Labor Labor Epidural Familial anesthetic complications: none Was Beta Alayna taken within 24 hours: N/A Last intake: 0900- solids clears- current. Social Tobacco (vape none nicotine. ) and No alcohol Methadone taken 10/02/22 Airway Submandibular: within normal limits Cervical ROM: within normal limits Mallampati: Class II Dentition: full Pulmonary Sleep Apnea (non-compliant) CV/HEM None reported None reported Hepatic Hepatitis History of Hep C. no history of treatment. GI Gastroesophageal Reflux Disease Metabolic None reported Musc/skel None reported Neuropsych Anxiety and Depression Anesthetic Plan ASA status: 2 Medications/Allergies Home Medications Medication Instructions Recorded Confirmed Last Taken Type celecoxib 200 mg capsule 200 mg PO DAILY PRN Pain 02/04/22 02/04/22 Unknown History multivitamin 1 tab PO DAILY 02/04/22 02/04/22 Unknown History omeprazole 40 mg capsule,delayed 40 mg PO DAILY PRN Heartburn 02/04/22 02/04/22 Unknown History release methadone 70 mg PO DAILY 02/08/22 02/08/22 1 Day Ago History ~02/07/22 70 mg propranolol 20 mg tablet 20 mg PO TID PRN Anxiety 30 days 02/08/22 Unknown Rx #90 tabs prenat.vits,harsha,hpa-wsvx-htblj 1 tab PO DAILY #30 tabs 03/04/22 Unknown Rx Allergies Allergy/AdvReac Type Severity Reaction Status Date / Time diphenhydramine Allergy HIVES Verified 03/09/22 11:38 [From Benadryl] promethazine [From Phenergan] Allergy SWELLING Verified 03/09/22 11:38 Current Medications Generic Name Dose Route Start Last Admin Trade Name Freq PRN Reason Stop Dose Admin Fentanyl 25 - 100 mcg 10/02/22 13:12 10/02/22 14:09 Fentanyl 50 Mcg/Ml Inj 2ml IVP 25 mcg Q1H PRN Administration SEVERE PAIN Lactated Ringer's 1,000 mls @ 999 mls/hr 10/02/22 13:12 10/02/22 14:08 Lactated Ringers IV 999 mls/hr .Q1H1M PRN Administration See label comments Dextrose/Lactated Ringer's 1,000 mls @ 125 mls/hr 10/02/22 13:15 10/02/22 14:08 Dextrose 5%-Lactated Ringers IV 125 mls/hr .Q8H NEDA Administration PFSH Anesthesia Medical History Chronic shoulder pain Hepatitis C Diagnosed in 2013 during . History of hemorrhage Primary osteoarthritis, right shoulder Tendinopathy of right rotator cuff Surgical History H/O abdominoplasty (~11/2015) H/O knee surgery R knee History of reduction of closed fracture (~02/25/14) Closed Reduction and percutaneous internal fixation with 7.0 cannulated screws times 2, 02/25/2014, by Dr Koch History of surgery on arm 8 surgeries on R arm with skin graft S/P breast augmentation with lift. Silicone gel implants. Family History Grandmother No problems noted. Father Diabetes Heart disease Hypercholesteremia Mother No problems noted. Grandfather Diabetes Paternal Heart disease Paternal Family/Other Diabetes Paternal side in general Heart disease Paternal Aunts, Maternal uncle Sister Hypertension Brother Hypertension Social History Smoking and tobacco status: former smoker Quit status (tobacco): has quit using tobacco Year quit tobacco: 2012 Former quit date comment: Was at most 1 pack/week. Started age 23 Alcohol intake: former Year of sobriety/quit date alcohol: 2012 History of recent travel: No Additional social history: Drug use: former- Marijuana as a teen Female Reproductive History Date of last menstrual period: 06/21/20 : 4 Data Anesthesia 10/02/22 13:30 Short CBC 10/02/22 Range/Units 13:30 WBC 7.1 (4.0-10.0) 10^3/uL Hgb 11.3 L (11.5-15.3) g/dL Hct 36.1 L (37.0-47.0) % MCV 81.1 (81-99) fl Plt Count 246 (130-400) 10^3/cmm Neut % (Auto) 54.3 % Neut # (Auto) 3.83 (1.8-7.7) 10^3/uL Urine 10/02/22 Range/Units 13:30 Urine Color Yellow (Yellow) Urine Appearance Hazy A (CLEAR) Urine pH 6.5 (5-7) Ur Specific [place] 1.015 (1.005-1.030) Urine Protein 1+ H (Negative) Urine Glucose (UA) Norm (Normal) Urine Ketones Negative (Negative) Urine Nitrate Negative (Negative) Urine Bilirubin Neg (Negative) Ur Leukocyte Esterase 1+ H (Negative) Urine RBC Too numerous to cnt H (0-2) /hpf Urine WBC 15-25 H (0-5) /hpf Cardiac Studies: Echocardiogram Ultrasound 03/21/21
--- NOTE | 2022-10-02 15:39 | PM.OBGYHP ---
Providers/Chief Complaint Primary Care Provider: Monse Vogt APN Chief Complaint: Vag Bleeding HPI DIRECTOR OF SPA AND GUEST EXPERIENCE History of Present Illness Jazmin Martinez is a 37 year old female who is 38 weeks gestation with limited pnc. She is and presents with vaginal bleeding that started user acceptance tester. Was red and onto the middle of a pad x 1. Pt is 5cm with bloody show per nursing. She established care with Dr. Sexton and stopped going after 2-3 visits. Her prior pregnancies have been complicated by hep c, precipitous delivery, pp hemorrhage and elevated bps that the pt relates to anxiety during her precipitous delivery. Present Details : 5 Para: 2 Dating criteria OB: based on 1st trimester US only care: limited care Ultrasounds: normal 1st trimester US (13 wks) Abnormal OB US findings: placenta previa not rulled out on prior 20 wk scan d/t position Obstetrical complications: other (pp hemorrhage, precipitous delivery, hep c, elevated bp) Medical complications OB: psychiatric Other Details: edc 10/11/22 per 13 wk us with unknown fdlmp Labs Blood type OB HPI: A (+) positive RPR: Negative GBS: Unknown HBsAG: Negative Other Lab Information: hiv nr, pos hep c, viral load pending Review of Systems General: Reports: 10 or more systems reviewed and unremarkable except in HPI and below : Reports: vaginal bleeding and other (uterine cramping) Musc: Reports: back pain Medications/Allergies Home Medications Medication Instructions Recorded Confirmed Last Taken Type celecoxib 200 mg capsule 200 mg PO DAILY PRN Pain 02/04/22 02/04/22 Unknown History multivitamin 1 tab PO DAILY 02/04/22 02/04/22 Unknown History omeprazole 40 mg capsule,delayed 40 mg PO DAILY PRN Heartburn 02/04/22 02/04/22 Unknown History release methadone 70 mg PO DAILY 02/08/22 02/08/22 1 Day Ago History ~02/07/22 70 mg propranolol 20 mg tablet 20 mg PO TID PRN Anxiety 30 days 02/08/22 Unknown Rx #90 tabs prenat.vits,harsha,wdp-dhyy-taxjz 1 tab PO DAILY #30 tabs 03/04/22 Unknown Rx Allergies Allergy/AdvReac Type Severity Reaction Status Date / Time diphenhydramine Allergy HIVES Verified 03/09/22 11:38 [From Benadryl] promethazine [From Phenergan] Allergy SWELLING Verified 03/09/22 11:38 PFSH DIRECTOR OF SPA AND GUEST EXPERIENCE PFSH: Medical History Bradycardia Chronic shoulder pain Contraception management Gastroesophageal reflux in in third trimester Hepatitis C Diagnosed in 2013 during . History of hemorrhage Primary osteoarthritis, right shoulder Pruritus of in third trimester Tendinopathy of right rotator cuff Surgical History H/O abdominoplasty (~11/2015) H/O knee surgery R knee History of reduction of closed fracture (~02/25/14) Closed Reduction and percutaneous internal fixation with 7.0 cannulated screws times 2, 02/25/2014, by Dr Koch History of surgery on arm 8 surgeries on R arm with skin graft S/P breast augmentation with lift. Silicone gel implants. Family History Grandmother No problems noted. Father Diabetes Heart disease Hypercholesteremia Mother No problems noted. Grandfather Diabetes Paternal Heart disease Paternal Family/Other Diabetes Paternal side in general Heart disease Paternal Aunts, Maternal uncle Sister Hypertension Brother Hypertension Social History Smoking and tobacco status: former smoker Quit status (tobacco): has quit using tobacco Year quit tobacco: 2012 Former quit date comment: Was at most 1 pack/week. Started age 23 Alcohol intake: former Year of sobriety/quit date alcohol: 2012 History of recent travel: No Additional social history: Drug use: former- Marijuana as a teen Other Female Reproductive History: Menstrual History Comment: unknown [facility] Dietary Habits: Current diet type/program: regular Safety: Seatbelt use: always History History History 5 Term 2 0 Miscarriages/Ectopic 2 Living Children 2 Vitals/I&O/Wt Last Vital Signs Pulse 59 L 10/02/22 15:37 BP 141/82 10/02/22 15:37 Pulse Ox 99 10/02/22 15:36 Weight last 48 hrs Weight 136 lb Physical Exam Const: COMMON NORMALS: no acute distress, average body habitus, patient oriented x3 and alert HENMT: COMMON NORMALS: normocephalic, atraumatic, hearing grossly normal bilaterally, external ears normal, Normal external nose present, moist oral mucous membranes and dentition normal Eye: COMMON NORMALS: EOMs intact bilaterally, conjunctivae normal and no scleral icterus Neck/C-Spine: COMMON NORMALS: full ROM, no lymphadenopathy, supple, no JVD and Thyroid normal Resp: COMMON NORMALS: normal respiratory effort, No retractions and No use of accessory muscles Cardio: COMMON NORMALS: no JVD and regular rate GI: COMMON NORMALS: Soft to palpation and non-tender : OTHER: sve 5/50/-1 vtx with bloody showand membranes intact Extremity: COMMON NORMALS: normal to inspection, full ROM and no clubbing, cyanosis or edema Neuro: COMMON NORMALS: patient oriented x3, moves all extremities, no focal motor deficits, no sensory deficits noted and gait normal Psych: COMMON NORMALS: mental status grossly normal and cooperative Skin: COMMON NORMALS: no rashes or lesions noted, turgor normal and no jaundice Data 10/02/22 13:30 A&P Assessment and plan (1) Intrauterine normal : (2) Hepatitis C: Qualifiers: Viral hepatitis chronicity: acute Hepatic coma status: without hepatic coma Qualified Code(s): B17.10 - Acute hepatitis C without hepatic coma (3) Active labor at term: (4) Limited care, antepartum: (5) Vaginal bleeding during , antepartum: Plan admit epidural planned hep c viral load ordered GBS prophylaxis us to r/o placental previa Attestations Medical Necessity Statement*: 38 wks iup in labor with vaginal bleeding admitted for delivery and pp care Time Spent in Patient Care: Greater than 35 minutes Coding Level of Care Code New Pt Acute Valve Inspector for Chg Fwd Patient Type New Diagnoses Intrauterine normal Z34.90 Hepatitis C B17.10 Viral hepatitis chronicity: acute Hepatic coma status: without hepatic coma Active labor at term Limited care, antepartum O09.30 Vaginal bleeding during , antepartum O46.90
--- NOTE | 2022-10-02 16:03 | ANES.PROC ---
Anesthesia Procedures Procedure/Date: 10/02/22 Epidural: Time Out Performed: Yes Consents Signed: Procedure Consent Consent: from patient, risks and benefits reviewed and patient agrees to proceed Epidural position: sitting Epidural procedure: sterile prep of area, 1% lidocaine to numb the area, negative for paresthesia passed, test dose given, 1.5% xylocaine 1:200k epi (3ml administered waited 3 min. administered remaining 2ml), placed PCEA (13 ml/hr), no systemic response, sterile dressing applied, L.U.D. no apparent complications and 0.2% Ropiavacaine @ mls/hr (13ml/hr) Additional Comments: AASHISH at 7.5 cm catheter threaded to 14 cm. 100 mcg Fentanyl given via epidural.
[2022-10-02 16:33] LABS: Hepatitis C Virus Antibody Reactive (Nonreactive)
[2022-10-02] MEDS: oxytocin 30 UNIT/500 ML BAG 600 UNIT IV (17:06)
--- NOTE | 2022-10-02 17:20 | PM.DELIVERY ---
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 She received epidural anesthesia and had some discomfort in her left lower pelvis. AROM clear fluid with small red bleeding and passage of dark red clots just prior to pushing. Delivery: pt noted to be complete/100%/0 station after rupture and pushed x 3 to deliver a viable male from OA position over an intact perineum with a midline periurethral and right lower labia skin tear neither of which required repair and were hemostatic. Baby suctioned after delivery and red blood noted in nasopharynx and both nares. Placed on maternal abdomen and cord clamped x 2 and cut. Placenta delivered spontaneously intact with 3 vc noted and about 10% surface with bright red clot noted. Small dark clots expressed after delivery. EBL 300 ml. No complications noted. Post-Delivery Status: mom and stable History History History 5 Term 2 0 Miscarriages/Ectopic 2 Living Children 2 Other History: edc 10/11/22 per 13 wk us with unknown fdlmp A&P Assessment and plan (1) Vaginal bleeding during , antepartum: suspect partial placental abruption at delivery (2) Intrauterine normal : (3) Active labor at term: (4) Limited care, antepartum: (5) Hepatitis C: Qualifiers: Viral hepatitis chronicity: acute Hepatic coma status: without hepatic coma Qualified Code(s): B17.10 - Acute hepatitis C without hepatic coma Plan routine pp care Coding Level of Care Code Acute Manager Trading for Chg Fwd Diagnoses Vaginal bleeding during , antepartum O46.90 Intrauterine normal Z34.90 Active labor at term Limited care, antepartum O09.30 Hepatitis C B17.10 Viral hepatitis chronicity: acute Hepatic coma status: without hepatic coma
[2022-10-02] MEDS: benzocaine-menthol 78 gm Canister 1 SPRAY TOPICAL (21:06)
[2022-10-02] MEDS: ibuprofen 800 mg tablet PO (21:06)
[2022-10-03] VITALS (7 sets, daily range): BP systolic 135–166; BP diastolic 72–81; PULSE 51–57; RESP 15–18; TEMP 36.7–37; O2SAT 98–99
[2022-10-03] MEDS: acetaminophen 325 mg Tablet 650 MG PO (03:43)
[2022-10-03 05:27] LABS: Hematocrit 30.3 % (37.0-47.0); Hemoglobin 9.5 g/dL (11.5-15.3); Mean Corpuscular HGB Conc 31.4 g/dL (30.0-36.0); Mean Corpuscular Hemoglobin 25.7 pg (28.0-34.0); Mean Corpuscular Volume 82.1 fl (81-99); Mean Platelet Volume 10.7 fL (7.4-10.4); Platelet Count 202 10^3/cmm (130-400); Red Blood Count 3.69 10^6/uL (4.1-5.3); Red Cell Distribution Width 15.5 % (12.1-15.1)
[2022-10-03] MEDS: methadone 10 mg Tablet 70 MG PO (07:27)
[2022-10-03] MEDS: ibuprofen 800 mg tablet PO ×3 (07:27→21:28)
[2022-10-03] MEDS: docusate sodium 100 mg Capsule PO ×2 (07:28→17:23)
[2022-10-03] MEDS: prenatal vitamin Capsule 1 CAP PO (07:28)
--- NOTE | 2022-10-03 14:52 | P.PN_ITS ---
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 Bottle feeding and lochia small. Denies cramping. Medications: Reviewed: Yes Labor: Station: 0 Amniotic Membrane Status: Ruptured Monitor Mode: External Contraction Pattern: Regular Status: Category I Post /CS: Patient comments OB post-: no complaints, pain well controlled and tolerating diet [place] baby status: doing well and bottle feeding well Vitals/I&O/Wt Last Vital Signs Temp 98.6 F 10/03/22 11:51 Pulse 54 L 10/03/22 11:51 Resp 16 10/03/22 11:51 BP 151/72 10/03/22 11:51 Pulse Ox 99 10/03/22 04:33 O2 Del Method 10/03/22 11:51 Weight last 48 hrs Weight 136 lb Physical Exam Const: COMMON NORMALS: no acute distress, average body habitus, patient oriented x3, healthy appearing and alert HENMT: COMMON NORMALS: normocephalic, atraumatic, moist oral mucous membranes and dentition normal HEAD & SCALP: normocephalic and atraumatic Eye: COMMON NORMALS: conjunctivae normal and no scleral icterus CONJUNCTIVA: Yes conjunctivae normal Neck/C-Spine: COMMON NORMALS: no JVD Resp: COMMON NORMALS: normal respiratory effort, No retractions and No use of accessory muscles Cardio: COMMON NORMALS: no JVD and regular rate RATE: regular rate GI: COMMON NORMALS: Soft to palpation and non-tender PALPATION: Yes Soft to palpation : COMMON NORMALS: Yes no CVA tenderness BLADDER/KIDNEY EXAM: Yes no CVA tenderness OTHER: FF and below u Back/Pelvis: COMMON NORMALS: no CVA tenderness Extremity: COMMON NORMALS: normal to inspection, full ROM, capillary refill normal and no clubbing, cyanosis or edema Neuro: COMMON NORMALS: patient oriented x3, moves all extremities, no focal motor deficits, no sensory deficits noted and gait normal SENSORIUM/ORIENTATION: Yes alert Psych: COMMON NORMALS: mental status grossly normal, cooperative, normal affect and speech normal SPEECH: Yes normal speech Skin: COMMON NORMALS: turgor normal, no jaundice, no petechiae and no mottling GENERAL SKIN EXAM: turgor normal Data 10/03/22 05:15 Micro: Microbiology 10/02/22 13:30 Chlamydia trachomatis (ENDY) - Final Urine Random Neisseria gonorrhoeae (ENDY) - Final A&P Assessment and plan (1) Vaginal bleeding during , antepartum: suspect partial placental abruption at delivery, resolved (2) Intrauterine normal : delivered without complication, resolved (3) Limited care, antepartum: (4) Hepatitis C: viral load pending Qualifiers: Viral hepatitis chronicity: acute Hepatic coma status: without hepatic coma Qualified Code(s): B17.10 - Acute hepatitis C without hepatic coma (5) Methadone dependence: resume methadone s/p delivery with plan to f/u with clinic per usual protocol post discharge Plan routine pp care plan dc tomorrow Attestations Medical Necessity Statement*: admitted for labor and delivery and care Coding Level of Care Code Acute Medical Sociologist for Chg Fwd Diagnoses Vaginal bleeding during , antepartum O46.90 Intrauterine normal Z34.90 Limited care, antepartum O09.30 Hepatitis C B17.10 Viral hepatitis chronicity: acute Hepatic coma status: without hepatic coma Methadone dependence F11.20
[2022-10-04 03:32] VITALS: BP 143/81; PULSE 55; O2SAT 100
[2022-10-04 09:16] VITALS: BP 126/83; PULSE 70; RESP 15; TEMP 36.7; O2SAT 99
[2022-10-04 09:17] VITALS: RESP 15; O2SAT 99
[2022-10-04] MEDS: docusate sodium 100 mg Capsule PO (09:17)
[2022-10-04] MEDS: prenatal vitamin Capsule 1 CAP PO (09:17)
[2022-10-04] MEDS: methadone 10 mg Tablet 70 MG PO (09:17)
[2022-10-04] MEDS: ibuprofen 800 mg tablet PO (09:17)
--- NOTE | 2022-10-04 11:48 | PM.OBGYDC ---
Discharge Providers MANAGER SYSTEMS Date of Admission: 10/02/22 13:19 Date of Discharge: 10/04/22 Attending Provider at Admission: Kira Tidwell Attending Provider at Discharge: Kira Tidwell Primary Care Provider: Monse Vogt APN Diagnoses at Discharge Discharge Diagnosis (1) Vaginal bleeding during , antepartum: Status: Acute (2) Intrauterine normal : Status: Acute (3) Limited care, antepartum: Status: Acute (4) Hepatitis C: Status: Acute Qualifiers: Viral hepatitis chronicity: acute Hepatic coma status: without hepatic coma Qualified Code(s): B17.10 - Acute hepatitis C without hepatic coma Permanent problem details: Diagnosed in 2013 during . (5) Methadone dependence: Status: Acute Reason for Visit Reason for Visit: Vag Bleeding Hospital Course Hospital Course Jazmin Martinez is a 37 year old female G5, P2 EGA at 38 weeks gestation with limited pnc. Came to labor and delivery in active labor. Progressed to have a spontaneous vaginal delivery. complicated with IV drug use, and hep C. ulceration has been uneventful. Tolerating diet well. Ambulating without difficulty. Information Peripartum Data: Infant Delivery Method: Vaginal Physical Exam Narrative: GA; alert and oriented x 3 HEENT: normal Breasts: engorged Nipples - skin intact Lungs; clear to auscultation Heart: regular rhythm, no murmurs. Abd: Appropriately tender. BS+. Uterine fundus below umbilicus. No Fundal Tenderness. Perineum: normal lochia. Extremities: no edema, no cyanosis, no tenderness. History History History 5 Term 2 0 Miscarriages/Ectopic 2 Living Children 2 Other History: edc 10/11/22 [facility] 13 [facility] Discharge Data Studies Completed and Pending Completed Studies During Hospitalization Category Date Time Status US OB limited [address] Stat Ultrasound 10/02/22 Completed Pending at discharge Category Date Time Status Hepatitis C RNA Viral Load Qnt Routine Lab 10/02/22 17:39 Received Radiology Impressions Obstetrics Ultrasound 10/02/22 00:00 IMPRESSION: Anterior high left placenta. No placenta previa is visible. Laboratory Results WBC 11.0 10^3/uL (4.0-10.0) H 10/03/22 05:15 RBC 3.69 10^6/uL (4.1-5.3) L 10/03/22 05:15 Hgb 9.5 g/dL (11.5-15.3) L 10/03/22 05:15 Hct 30.3 % (37.0-47.0) L 10/03/22 05:15 MCV 82.1 fl (81-99) 10/03/22 05:15 MCH 25.7 pg (28.0-34.0) L 10/03/22 05:15 MCHC 31.4 g/dL (30.0-36.0) 10/03/22 05:15 RDW 15.5 % (12.1-15.1) H 10/03/22 05:15 Plt Count 202 10^3/cmm (130-400) 10/03/22 05:15 MPV 10.7 fL (7.4-10.4) H 10/03/22 05:15 Neut % (Auto) 54.3 % 10/02/22 13:30 Lymph % (Auto) 33.5 % 10/02/22 13:30 [place] % (Auto) 6.8 % 10/02/22 13:30 Eos % (Auto) 4.0 % 10/02/22 13:30 Baso % (Auto) 0.7 % 10/02/22 13:30 Neut # (Auto) 3.83 10^3/uL (1.8-7.7) 10/02/22 13:30 Lymph # (Auto) 2.4 10^3/uL (0.8-4.8) 10/02/22 13:30 [place] # (Auto) 0.5 10^3/uL (0.2-0.9) 10/02/22 13:30 Eos # (Auto) 0.3 10^3/uL (0.0-0.8) 10/02/22 13:30 Baso # (Auto) 0.1 10^3/uL (0.0-0.1) 10/02/22 13:30 Nucleated RBC % (auto) 0 % 10/02/22 13:30 Nucleated RBCs # 0.0 /100WBC 10/02/22 13:30 Urine Color Yellow (Yellow) 10/02/22 13:30 Urine Appearance Hazy (CLEAR) A 10/02/22 13:30 Urine pH 6.5 (5-7) 10/02/22 13:30 Ur Specific [place] 1.015 (1.005-1.030) 10/02/22 13:30 Urine Protein 1+ (Negative) H 10/02/22 13:30 Urine Glucose (UA) Norm (Normal) 10/02/22 13:30 Urine Ketones Negative (Negative) 10/02/22 13:30 Urine Blood 3+ (Negative) H 10/02/22 13:30 Urine Nitrate Negative (Negative) 10/02/22 13:30 Urine Bilirubin Neg (Negative) 10/02/22 13:30 Urine Urobilinogen 1 mg/dL (Negative) H 10/02/22 13:30 Ur Leukocyte Esterase 1+ (Negative) H 10/02/22 13:30 Urine RBC Too numerous to cnt /hpf (0-2) H 10/02/22 13:30 Urine WBC 15-25 /hpf (0-5) H 10/02/22 13:30 Ur Squamous Epith Cells 10-15 /hpf (0-5) H 10/02/22 13:30 Amorphous Sediment Not Reportable 10/02/22 13:30 Urine Bacteria 1+ /hpf (NONE) H 10/02/22 13:30 Urine Mucus 1+ /hpf 10/02/22 13:30 Urine Opiates Screen Negative ng/mL (Negative) 10/02/22 13:30 Ur Barbiturates Screen Negative ng/mL (Negative) 10/02/22 13:30 Ur Phencyclidine Scrn Negative ng/mL (Negative) 10/02/22 13:30 Ur Amphetamines Screen Negative ng/mL (Negative) 10/02/22 13:30 U Benzodiazepines Scrn Negative ng/mL (Negative) 10/02/22 13:30 Urine Cocaine Screen Negative ng/mL (Negative) 10/02/22 13:30 U Marijuana (THC) Screen Negative ng/mL (Negative) 10/02/22 13:30 RPR Nonreactive (Nonreactive) 10/02/22 13:30 Hep Bs Antigen Cancelled 10/02/22 13:30 Hep Bs Antigen Non-reactive (Nonreactive) 10/02/22 13:30 Hepatitis C Antibody Reactive (Nonreactive) H 10/02/22 13:30 HIV 1&2 Ab & HIV 1 Ag Non-reactive (Non-Reactiv) 10/02/22 13:30 HIV 1&2 Antibody Non-reactive (Non-Reactiv) 10/02/22 13:30 Rubella IgG Antibody 108.2 IU/mL (0.0-10.0) H 10/02/22 13:30 Blood Type A Positive 10/02/22 13:30 Rho(D) Type Positive 10/02/22 13:30 Antibody Screen Negative 10/02/22 13:30 Vitals Last Vital Signs Temp 98.1 F 10/04/22 09:16 Pulse 70 10/04/22 09:16 Resp 15 10/04/22 09:17 BP 126/83 10/04/22 09:16 Pulse Ox 99 10/04/22 09:17 O2 Del Method 10/04/22 09:16 Discharge Plan Discharge Patient Disposition: Home Condition: Good Prescriptions: New acetaminophen 325 mg capsule 325 mg PO Q4H PRN (Reason: fever or pain) Qty: 60 0RF ferrous sulfate [Iron (ferrous sulfate)] 325 mg (65 mg iron) tablet 325 mg PO BID Qty: 60 0RF ibuprofen 800 mg tablet 800 mg PO TID PRN (Reason: pain) Qty: 60 0RF No Action multivitamin Tablet 1 tab PO DAILY celecoxib 200 mg capsule 200 mg PO DAILY PRN (Reason: Pain) omeprazole 40 mg capsule,delayed release(DR/EC) 40 mg PO DAILY PRN (Reason: Heartburn) propranolol 20 mg Tablet 20 mg PO TID PRN (Reason: Anxiety) 30 Days Qty: 90 1RF methadone tablet 70 mg PO DAILY prenat.vits,harsha,dck-mqyn-[id number] Tablet 1 tab PO DAILY Qty: 30 0RF Discharge Orders: Discharge Order (Routine); Ordered 10/04/22 Ordered By: Robbie Shrestha Referrals: Robbie Shrestha MD [Physician] - Discharge Diet: Advance as tolerated Discharge Activity: Limit activity as instructed Patient Instructions: Opioid Safety, Vaginal Delivery (GEN), Your [place]'s Appearance (GEN), Bleeding (GEN), Caring for Your Baby (GEN), Hepatitis C (DC) Activity Restrictions/Additional Instructions: 1. Please call [facility] on next working day to make your appointment in 6 weeks. 2. Please stay home until you come back to the clinic on first post-operative check up. 3. Please follow instructions on your medications CAREFULLY. 4. If you have abdominal incision, do not cover it unless dressing is necessary because of drainage. OK to shower, but avoid bath. Leave steri-strips until they fall off. If they are still on one week after surgery, you may remove them. 5. If you had vaginal surgery or vaginal repair, Dr. Shrestha may instruct you to take SITZ bath. 6. Yellow, blood tinged odorous vaginal discharge is usually normal after hysterectomy or vaginal surgeries. 7. No sexual intercourse, tampons, or douches until you are completely released from the post-operative care. 8. Avoid constipation by eating right and maybe using some Metamucil or Milk of Magnesia. 9. All prescription refills are given during the working hours. Please do no wait till it runs out. Call the clinic at [phone] before your medication runs out. The clinic will get in touch with your doctor to prescribe medications if necessary. 10. Please remain within 40 mile radius from our hospital because emergencies do happen now and then during the post-operative period. 11. If you have stairs at home, take one step at a time slowly and minimize the number of trips. It helps to stay in one floor for the next few days. No lifting except what you can lift by one hand until you are released from the post-operative care. 12. Driving is discouraged until you are well healed. It may be 3-4 weeks before you feel strong enough to drive. You should be able to turn and look through the rear window without pain and you should be able to push the brake pedal very hard without pain before you drive. No fast rules, but SAFETY should be your primary concern. DO NOT drive if you are on sedating medications such as narcotics. 13. Call the clinic (during working hours) to make urgent appointment or go to the Emergency room, if any of the following occurs: i. Vaginal bleeding becomes heavy, more than a period. ii. Incision becomes red and sore, or drains pus. iii. Your temperature is over 100.4 or you have chill. iv. IV site becomes red and swollen (a little ``knot?? is usually OK) v. Persistent nausea and vomiting vi. Persistent constipation or diarrhea vii. Rash or allergic reaction to medications. Discharge Attestations MANAGER SYSTEMS Time Spent in Discharge Care*: greater than 30 min Coding Level of Care Code Acute Check Out Clerk for Chg Fwd Diagnoses Vaginal bleeding during , antepartum O46.90 Intrauterine normal Z34.90 Limited care, antepartum O09.30 Hepatitis C B17.10 Viral hepatitis chronicity: acute Hepatic coma status: without hepatic coma Methadone dependence F11.20
[2022-10-04] MEDS: alum-mag-hydroxide-sime 30 mL UDC PO (12:39)
[2022-10-04 16:52] VITALS: BP 147/91; PULSE 52; RESP 15; TEMP 36.7; O2SAT 100
[2022-10-04 22:37] LABS: HEP C RNA Viral Load Quant 6.82 Log IU/mL (NOT DETECTED)
== END 2022-10-04 15:00 | disposition home or self-care (01) | DRG 806 ==
LOC: OPOB 17:16 → OBGYN 18:25
PROVIDERS: Admitting Provider Obstetrics & Gynecology; PCP Nurse Practitioner Family; Visit Provider Obstetrics & Gynecology
DX: O45.93 Premature separation of placenta, unspecified, third trimester (principal); B17.10 Acute hepatitis C without hepatic coma; Z37.0 Single live birth; O98.42 Viral hepatitis complicating childbirth; O99.324 Drug use complicating childbirth; F11.20 Opioid dependence, uncomplicated; Z3A.38 38 weeks gestation of pregnancy; Z87.59 Personal history of other complications of pregnancy, childbirth and the puerperium
CPT/HCPCS: 36415; 59025; 59409; 76815; 80306; 81001; 85025; 85027; 86592; 86762; 86803; 86850; 86900; 87340; 87491; 87522; 87591; 87806; 96374; 96376; 99211; J0290; J2590; J3010; J7120; J7121

== ENCOUNTER 2022-11-04 09:29 | Emergency (ER) | payer MEDICAID, SELFPAY ==
[2022-11-04 09:48] VITALS: BP 124/88; PULSE 102; RESP 20; O2SAT 94; BMI 18.8
--- NOTE | 2022-11-04 09:52 | W.ED.PSYCHS ---
Documented by User: NICOLE Quiles 11/04/22 16:35 HPI - Psych General: Chief Complaint: Psychiatric Symptoms Stated Complaint: 96 Hold Time Seen by Provider: 11/04/22 09:35 History of Present Illness: Patient is a 37-year-old female comes to the ED for psych complaint. Patient was brought in by police with affidavit and 96-hour hold paperwork . patient is on methadone and missed her appointment to get her methadone a couple days ago. She has not taken her methadone now for 2 days. She was concerned about withdrawals and contacted [facility] crisis hotline. She told the expeller operator on the hotline that she will be in the obituary by Monday. Also when asked if she will be safe today she stated I do not know how I will be safe. Do you want me to just tell you I am going to blow my head off with a gun? The crisis hotline expeller operator at [facility] and then had a affidavit filled out and a 96-hour hold paperwork was filled out as well. Police were called out to patient's house and she was brought here to the ED for further evaluation. Here in the ED patient says she is not suicidal or homicidal. The comment she made about suicide to the crisis hotline expeller operator was just done out of frustration and methadone withdrawal and she has no thoughts of SI currently. Associated symptoms: Deny auditory hallucinations, visual hallucinations, homicidal ideation or suicidal ideation Review of Systems Const: Denies: fever(s), chills or fatigue Eyes: Denies: change in vision or eye discomfort ENMT: Denies: throat pain, odynophagia, nasal discharge or nasal congestion Card: Denies: chest pain, palpitations, edema, swelling of feet/ankles, dyspnea on exertion or orthopnea Resp: Denies: dyspnea, productive cough or non-productive cough GI: Denies: abdominal pain, nausea, vomiting, diarrhea, constipation or hematochezia : Denies: flank pain, dysuria or hematuria Musc: Denies: neck pain, back pain or extremity swelling Skin/Breast: Denies: rash or new lesions Neuro: Denies: headache(s), numbness in extremities or weakness in extremities Psych: Denies: visual hallucinations, auditory hallucinations, suicidal ideation or homicidal ideation [facility] ED PFSH: Medical History Bradycardia Chronic shoulder pain Contraception management Gastroesophageal reflux in in third trimester Hepatitis C Diagnosed in 2013 during . History of hemorrhage Primary osteoarthritis, right shoulder Pruritus of in third trimester Tendinopathy of right rotator cuff Surgical History H/O abdominoplasty (~11/2015) H/O knee surgery R knee History of reduction of closed fracture (~02/25/14) Closed Reduction and percutaneous internal fixation with 7.0 cannulated screws times 2, 02/25/2014, by Dr Koch History of surgery on arm 8 surgeries on R arm with skin graft S/P breast augmentation with lift. Silicone gel implants. Family History Grandmother No problems noted. Father Diabetes Heart disease Hypercholesteremia Mother No problems noted. Grandfather Diabetes Paternal Heart disease Paternal Family/Other Diabetes Paternal side in general Heart disease Paternal Aunts, Maternal uncle Sister Hypertension Brother Hypertension Social History Smoking and tobacco status: former smoker Quit status (tobacco): has quit using tobacco Year quit tobacco: 2012 Former quit date comment: Was at most 1 pack/week. Started age 23 Alcohol intake: former Year of sobriety/quit date alcohol: 2013 History of recent travel: No Additional social history: Drug use: former- Marijuana as a teen Physical Exam Const: COMMON NORMALS: no acute distress, patient oriented x3, healthy appearing and alert GENERAL APPEARANCE: cooperative and comfortable HENMT: COMMON NORMALS: normocephalic HEAD & SCALP: normocephalic MOUTH: Normal oral and palatal mucosa present THROAT: posterior oropharynx normal and uvula midline Neck/C-Spine: COMMON NORMALS: supple GENERAL: Yes normal visual inspection Resp: COMMON NORMALS: normal respiratory effort, No retractions, No use of accessory muscles and clear to auscultation bilaterally AUSCULTATION: clear to auscultation bilaterally Cardio: COMMON NORMALS: regular rate, regular rhythm, S1 normal heart sound present, S2 normal heart sound present, No gallops present (Cardio), No clicks present (Cardio), No murmurs present (Cardio) and Peripheral pulses 2+ throughout RATE: regular rate RHYTHM: regular rhythm HEART SOUNDS: S1 normal heart sound present and S2 normal heart sound present PERIPHERAL PULSES: Peripheral pulses 2+ throughout GI: COMMON NORMALS: Normal to inspection, nondistended, normoactive bowel sounds present, Soft to palpation, non-tender and no masses PALPATION: Yes Soft to palpation : COMMON NORMALS: Yes no CVA tenderness BLADDER/KIDNEY EXAM: Yes no CVA tenderness Back/Pelvis: COMMON NORMALS: no CVA tenderness Extremity: COMMON NORMALS: normal to inspection Neuro: COMMON NORMALS: patient oriented x3 SENSORIUM/ORIENTATION: Yes alert GAIT: Yes Normal gait present Skin: GENERAL SKIN EXAM: dry skin Course Consultations: Consultation #1: I contacted Dr. Harris and told him about patient case. He was going to come down here to the ED to evaluate patient himself to evaluate if she needs the 96-hour hold or not. Dr. Harris came down to ED and did evaluation and then came and talked with me about patient case. He thinks patient does not need to be admitted and he is going to resend the 96-hour hold. She can follow-up with methadone clinic tomorrow morning. Vital Signs: Vital signs: Vital Signs Pulse Rate 102 H 11/04/22 12:51 Respiratory Rate 20 H 11/04/22 12:51 Blood Pressure 124/88 11/04/22 12:51 Pulse Oximetry 94 11/04/22 12:51 Oxygen Delivery Me thod 11/04/22 10:28 MDM - Psych Medical Decision Making Patient is a 37-year-old female comes to the ED via police with 96-hour hold paperwork an affidavit filled out. Patient missed one of her methadone appointments and has not been able to get her methadone for the past 2 days and is starting to have some withdrawals. She contacted [facility] and made a statement that was concerning to hotline expeller operator so paper was filled out and patient was brought in. Here in the ED she is compliant and does not appear to be in any distress or pain. She denies any HI or SI and states that she just said something out of frustration to the hotline expeller operator. I contacted Dr. Harris and told him about patient case and he came down to the ED to further evaluate. Below is note from Dr. Harris. Rescinded 96 hour hold, patient indicated that she was concerned about her having opiate withdrawal as patient last had methadone 2 days ago. Patient informed that methadone could not be given here and she had appropriate plan to go to Methadone center immediately today prior to it closing and asked for methadone as she continues to breast feed and concern about methadone withdrawal. Patient has appointment with methadone clinic in AM. Lab Data I reviewed the patient's lab results. 11/04/22 10:50 11/04/22 10:50 Laboratory Results WBC 14.1 10^3/uL (4.0-10.0) H 11/04/22 10:50 RBC 5.69 10^6/uL (4.1-5.3) H 11/04/22 10:50 Hgb 14.4 g/dL (11.5-15.3) 11/04/22 10:50 Hct 46.2 % (37.0-47.0) 11/04/22 10:50 MCV 81.2 fl (81-99) 11/04/22 10:50 MCH 25.3 pg (28.0-34.0) L 11/04/22 10:50 MCHC 31.2 g/dL (30.0-36.0) 11/04/22 10:50 RDW 15.1 % (12.1-15.1) 11/04/22 10:50 Plt Count 228 10^3/cmm (130-400) 11/04/22 10:50 MPV 9.6 fL (7.4-10.4) 11/04/22 10:50 Neut % (Auto) 76.6 % 11/04/22 10:50 Lymph % (Auto) 12.3 % 11/04/22 10:50 [place] % (Auto) 4.4 % 11/04/22 10:50 Eos % (Auto) 6.0 % 11/04/22 10:50 Baso % (Auto) 0.3 % 11/04/22 10:50 Neut # (Auto) 10.79 10^3/uL (1.8-7.7) H 11/04/22 10:50 Lymph # (Auto) 1.7 10^3/uL (0.8-4.8) 11/04/22 10:50 [place] # (Auto) 0.6 10^3/uL (0.2-0.9) 11/04/22 10:50 Eos # (Auto) 0.9 10^3/uL (0.0-0.8) H 11/04/22 10:50 Baso # (Auto) 0.0 10^3/uL (0.0-0.1) 11/04/22 10:50 Nucleated RBC % (auto) 0 % 11/04/22 10:50 Nucleated RBCs # 0.0 /100WBC 11/04/22 10:50 Sodium 138 mmol/L (136-145) 11/04/22 10:50 Potassium 4.4 mmol/L (3.5-5.1) 11/04/22 10:50 Chloride 102 mmol/L (98-107) 11/04/22 10:50 Carbon Dioxide 24 mmol/L (22-29) 11/04/22 10:50 Anion Gap 16.4 (5-19) 11/04/22 10:50 BUN 9 mg/dL (6-20) 11/04/22 10:50 Creatinine 0.6 mg/dL (0.5-0.9) 11/04/22 10:50 GFR Calculation 111.3 mL/min (90-130) 11/04/22 10:50 Glucose 109 mg/dL (65-115) 11/04/22 10:50 Calculated Osmolality 285 mOsm/kg (285-295) 11/04/22 10:50 Calcium 9.0 mg/dL (8.5-10.5) 11/04/22 10:50 Total Bilirubin 0.4 mg/dL (0.15-1.2) 11/04/22 10:50 AST 37 U/L (0-32) H 11/04/22 10:50 ALT 31 U/L (0-33) 11/04/22 10:50 Alkaline Phosphatase 77 U/L (35-105) 11/04/22 10:50 Total Protein 6.6 g/dL (6.6-8.7) 11/04/22 10:50 Albumin 3.9 g/dL (3.5-5.2) 11/04/22 10:50 Globulin 2.7 g/dL (1.3-4.6) 11/04/22 10:50 Urine Color Yellow (Yellow) 11/04/22 11:57 Urine Appearance Clear (CLEAR) 11/04/22 11:57 Urine pH 7 (5-7) 11/04/22 11:57 Ur Specific [place] 1.010 (1.005-1.030) 11/04/22 11:57 Urine Protein Neg (Negative) 11/04/22 11:57 Urine Glucose (UA) Norm (Normal) 11/04/22 11:57 Urine Ketones Negative (Negative) 11/04/22 11:57 Urine Blood Neg (Negative) 11/04/22 11:57 Urine Nitrate Negative (Negative) 11/04/22 11:57 Urine Bilirubin Neg (Negative) 11/04/22 11:57 Urine Urobilinogen 1 mg/dL (Negative) H 11/04/22 11:57 Ur Leukocyte Esterase Negative (Negative) 11/04/22 11:57 Salicylates < 0.3 mg/dL (3-10) L 11/04/22 10:50 Urine Opiates Screen Negative ng/mL (Negative) 11/04/22 11:57 Acetaminophen < 5.0 ug/mL (10-30) L 11/04/22 10:50 Ur Barbiturates Screen Negative ng/mL (Negative) 11/04/22 11:57 Ur Phencyclidine Scrn Negative ng/mL (Negative) 11/04/22 11:57 Ur Amphetamines Screen Negative ng/mL (Negative) 11/04/22 11:57 U Benzodiazepines Scrn Positive ng/mL (Negative) H 11/04/22 11:57 Urine Cocaine Screen Negative ng/mL (Negative) 11/04/22 11:57 U Marijuana (THC) Screen Positive ng/mL (Negative) H 11/04/22 11:57 Ethyl Alcohol < 10 mg/dL (0-10) 11/04/22 10:50 Discharge Plan Discharge Patient Disposition: Home Clinical Impression: Methadone dependence Condition: Stable Prescriptions: No Action multivitamin Tablet 1 tab PO DAILY celecoxib 200 mg capsule 200 mg PO DAILY PRN (Reason: Pain) omeprazole 40 mg capsule,delayed release(DR/EC) 40 mg PO DAILY PRN (Reason: Heartburn) propranolol 20 mg Tablet 20 mg PO TID PRN (Reason: Anxiety) 30 Days Qty: 90 1RF methadone tablet 70 mg PO DAILY prenat.vits,harsha,[id number] Tablet 1 tab PO DAILY Qty: 30 0RF ibuprofen 800 mg tablet 800 mg PO TID PRN (Reason: pain) Qty: 60 0RF Iron (ferrous sulfate) 325 mg (65 mg iron) tablet 325 mg PO BID Qty: 60 0RF acetaminophen 325 mg capsule 325 mg PO Q4H PRN (Reason: fever or pain) Qty: 60 0RF Discharge Orders: Discharge ED (Routine); Ordered 11/04/22 Ordered By: Fortino Morrell Referrals: Monse Vogt APN [Primary Care Provider] - Discharge Diet: Regular Discharge Activity: Increase activity as tolerated Activity Restrictions/Additional Instructions: Follow-up with PCP within the next week for reevaluation. Go to methadone clinic tomorrow for medication. Continue taking all medications as previously prescribed. Return to the ER or your medical provider if condition worsens. Please read and understand discharge instructions. Thank you for choosing [facility] for your healthcare needs today. Please realize this is an emergency room and that we are providing you with a medical screening exam and this may not be complete and all inclusive of all the testing and or work up that you may need to determine your ailment or severity of your illness. It is very important that you follow up as instructed or that you return to the Emergency Department should you have concerns or if your condition changes or worsens in any way. Coding Level of Care Code ED Inlayer Silver for Chg Fwd Exam Comprehensive Documented by User: Ishan Hanna MD 11/04/22 15:59 HPI - Psych General: Chief Complaint: Psychiatric Symptoms Stated Complaint: 96 Hold Time Seen by Provider: 11/04/22 09:35 PFSH ED PFSH: Medical History Bradycardia Chronic shoulder pain Contraception management Gastroesophageal reflux in in third trimester Hepatitis C Diagnosed in 2012 during . History of hemorrhage Primary osteoarthritis, right shoulder Pruritus of in third trimester Tendinopathy of right rotator cuff Surgical History H/O abdominoplasty (~11/2015) H/O knee surgery R knee History of reduction of closed fracture (~02/25/14) Closed Reduction and percutaneous internal fixation with 7.0 cannulated screws times 2, 02/25/2014, by Dr Koch History of surgery on arm 8 surgeries on R arm with skin graft S/P breast augmentation with lift. Silicone gel implants. Family History Grandmother No problems noted. Father Diabetes Heart disease Hypercholesteremia Mother No problems noted. Grandfather Diabetes Paternal Heart disease Paternal Family/Other Diabetes Paternal side in general Heart disease Paternal Aunts, Maternal uncle Sister Hypertension Brother Hypertension Social History Smoking and tobacco status: former smoker Quit status (tobacco): has quit using tobacco Year quit tobacco: 2012 Former quit date comment: Was at most 1 pack/week. Started age 23 Alcohol intake: former Year of sobriety/quit date alcohol: 2012 History of recent travel: No Additional social history: Drug use: former- Marijuana as a teen Course Vital Signs: Vital signs: Vital Signs Pulse Rate 102 H 11/04/22 12:51 Respiratory Rate 20 H 11/04/22 12:51 Blood Pressure 124/88 11/04/22 12:51 Pulse Oximetry 94 11/04/22 12:51 Oxygen Delivery Me thod 11/04/22 10:28 MDM - Psych Medical Decision Making Rescinded 96 hour hold, patient indicated that she was concerned about her having opiate withdrawal as patient last had methadone 2 days ago. Patient informed that methadone could not be given here and she had appropriate plan to go to Methadone center immediately today prior to it closing and asked for methadone as she continues to breast feed and concern about methadone withdrawal. Patient has appointment with methadone clinic in AM. Lab Data 11/04/22 10:50 11/04/22 10:50 Laboratory Results WBC 14.1 10^3/uL (4.0-10.0) H 11/04/22 10:50 RBC 5.69 10^6/uL (4.1-5.3) H 11/04/22 10:50 Hgb 14.4 g/dL (11.5-15.3) 11/04/22 10:50 Hct 46.2 % (37.0-47.0) 11/04/22 10:50 MCV 81.2 fl (81-99) 11/04/22 10:50 MCH 25.3 pg (28.0-34.0) L 11/04/22 10:50 MCHC 31.2 g/dL (30.0-36.0) 11/04/22 10:50 RDW 15.1 % (12.1-15.1) 11/04/22 10:50 Plt Count 228 10^3/cmm (130-400) 11/04/22 10:50 MPV 9.6 fL (7.4-10.4) 11/04/22 10:50 Neut % (Auto) 76.6 % 11/04/22 10:50 Lymph % (Auto) 12.3 % 11/04/22 10:50 [place] % (Auto) 4.4 % 11/04/22 10:50 Eos % (Auto) 6.0 % 11/04/22 10:50 Baso % (Auto) 0.3 % 11/04/22 10:50 Neut # (Auto) 10.79 10^3/uL (1.8-7.7) H 11/04/22 10:50 Lymph # (Auto) 1.7 10^3/uL (0.8-4.8) 11/04/22 10:50 [place] # (Auto) 0.6 10^3/uL (0.2-0.9) 11/04/22 10:50 Eos # (Auto) 0.9 10^3/uL (0.0-0.8) H 11/04/22 10:50 Baso # (Auto) 0.0 10^3/uL (0.0-0.1) 11/04/22 10:50 Nucleated RBC % (auto) 0 % 11/04/22 10:50 Nucleated RBCs # 0.0 /100WBC 11/04/22 10:50 Sodium 138 mmol/L (136-145) 11/04/22 10:50 Potassium 4.4 mmol/L (3.5-5.1) 11/04/22 10:50 Chloride 102 mmol/L (98-107) 11/04/22 10:50 Carbon Dioxide 24 mmol/L (22-29) 11/04/22 10:50 Anion Gap 16.4 (5-19) 11/04/22 10:50 BUN 9 mg/dL (6-20) 11/04/22 10:50 Creatinine 0.6 mg/dL (0.5-0.9) 11/04/22 10:50 GFR Calculation 111.3 mL/min (90-130) 11/04/22 10:50 Glucose 109 mg/dL (65-115) 11/04/22 10:50 Calculated Osmolality 285 mOsm/kg (285-295) 11/04/22 10:50 Calcium 9.0 mg/dL (8.5-10.5) 11/04/22 10:50 Total Bilirubin 0.4 mg/dL (0.15-1.2) 11/04/22 10:50 AST 37 U/L (0-32) H 11/04/22 10:50 ALT 31 U/L (0-33) 11/04/22 10:50 Alkaline Phosphatase 77 U/L (35-105) 11/04/22 10:50 Total Protein 6.6 g/dL (6.6-8.7) 11/04/22 10:50 Albumin 3.9 g/dL (3.5-5.2) 11/04/22 10:50 Globulin 2.7 g/dL (1.3-4.6) 11/04/22 10:50 Urine Color Yellow (Yellow) 11/04/22 11:57 Urine Appearance Clear (CLEAR) 11/04/22 11:57 Urine pH 7 (5-7) 11/04/22 11:57 Ur Specific [place] 1.010 (1.005-1.030) 11/04/22 11:57 Urine Protein Neg (Negative) 11/04/22 11:57 Urine Glucose (UA) Norm (Normal) 11/04/22 11:57 Urine Ketones Negative (Negative) 11/04/22 11:57 Urine Blood Neg (Negative) 11/04/22 11:57 Urine Nitrate Negative (Negative) 11/04/22 11:57 Urine Bilirubin Neg (Negative) 11/04/22 11:57 Urine Urobilinogen 1 mg/dL (Negative) H 11/04/22 11:57 Ur Leukocyte Esterase Negative (Negative) 11/04/22 11:57 Salicylates < 0.3 mg/dL (3-10) L 11/04/22 10:50 Urine Opiates Screen Negative ng/mL (Negative) 11/04/22 11:57 Acetaminophen < 5.0 ug/mL (10-30) L 11/04/22 10:50 Ur Barbiturates Screen Negative ng/mL (Negative) 11/04/22 11:57 Ur Phencyclidine Scrn Negative ng/mL (Negative) 11/04/22 11:57 Ur Amphetamines Screen Negative ng/mL (Negative) 11/04/22 11:57 U Benzodiazepines Scrn Positive ng/mL (Negative) H 11/04/22 11:57 Urine Cocaine Screen Negative ng/mL (Negative) 11/04/22 11:57 U Marijuana (THC) Screen Positive ng/mL (Negative) H 11/04/22 11:57 Ethyl Alcohol < 10 mg/dL (0-10) 11/04/22 10:50 Discharge Plan Discharge Patient Disposition: Home Clinical Impression: Methadone dependence Condition: Stable Prescriptions: No Action multivitamin Tablet 1 tab PO DAILY celecoxib 200 mg capsule 200 mg PO DAILY PRN (Reason: Pain) omeprazole 40 mg capsule,delayed release(DR/EC) 40 mg PO DAILY PRN (Reason: Heartburn) propranolol 20 mg Tablet 20 mg PO TID PRN (Reason: Anxiety) 30 Days Qty: 90 1RF methadone tablet 70 mg PO DAILY prenat.vits,harsha,[id number] Tablet 1 tab PO DAILY Qty: 30 0RF ibuprofen 800 mg tablet 800 mg PO TID PRN (Reason: pain) Qty: 60 0RF Iron (ferrous sulfate) 325 mg (65 mg iron) tablet 325 mg PO BID Qty: 60 0RF acetaminophen 325 mg capsule 325 mg PO Q4H PRN (Reason: fever or pain) Qty: 60 0RF Discharge Orders: Discharge ED (Routine); Ordered 11/04/22 Ordered By: Fortino Morrell Referrals: Monse Vogt APN [Primary Care Provider] - Discharge Diet: Regular Discharge Activity: Increase activity as tolerated Activity Restrictions/Additional Instructions: Follow-up with PCP within the next week for reevaluation. Go to methadone clinic tomorrow for medication. Continue taking all medications as previously prescribed. Return to the ER or your medical provider if condition worsens. Please read and understand discharge instructions. Thank you for choosing [facility] for your healthcare needs today. Please realize this is an emergency room and that we are providing you with a medical screening exam and this may not be complete and all inclusive of all the testing and or work up that you may need to determine your ailment or severity of your illness. It is very important that you follow up as instructed or that you return to the Emergency Department should you have concerns or if your condition changes or worsens in any way. Coding Level of Care Code ED Inlayer Silver for Chg Fwd Exam Comprehensive Documented by User: Laureano Shields DO 11/05/22 06:55 HPI - Psych General: Chief Complaint: Psychiatric Symptoms Stated Complaint: 96 Hold Time Seen by Provider: 11/04/22 09:35 [facility] ED PFSH: Medical History Bradycardia Chronic shoulder pain Contraception management Gastroesophageal reflux in in third trimester Hepatitis C Diagnosed in 2013 during . History of hemorrhage Primary osteoarthritis, right shoulder Pruritus of in third trimester Tendinopathy of right rotator cuff Surgical History H/O abdominoplasty (~11/2015) H/O knee surgery R knee History of reduction of closed fracture (~02/25/14) Closed Reduction and percutaneous internal fixation with 7.0 cannulated screws times 2, 02/25/2014, by Dr Koch History of surgery on arm 8 surgeries on R arm with skin graft S/P breast augmentation with lift. Silicone gel implants. Family History Grandmother No problems noted. Father Diabetes Heart disease Hypercholesteremia Mother No problems noted. Grandfather Diabetes Paternal Heart disease Paternal Family/Other Diabetes Paternal side in general Heart disease Paternal Aunts, Maternal uncle Sister Hypertension Brother Hypertension Social History Smoking and tobacco status: former smoker Quit status (tobacco): has quit using tobacco Year quit tobacco: 2012 Former quit date comment: Was at most 1 pack/week. Started age 23 Alcohol intake: former Year of sobriety/quit date alcohol: 2012 History of recent travel: No Additional social history: Drug use: former- Marijuana as a teen Course Vital Signs: Vital signs: Vital Signs Pulse Rate 102 H 11/04/22 12:51 Respiratory Rate 20 H 11/04/22 12:51 Blood Pressure 124/88 11/04/22 12:51 Pulse Oximetry 94 11/04/22 12:51 Oxygen Delivery Me thod 11/04/22 10:28 MDM - Psych Medical Decision Making Patient is a 37-year-old female comes to the ED via police with 96-hour hold paperwork an affidavit filled out. Patient missed one of her methadone appointments and has not been able to get her methadone for the past 2 days and is starting to have some withdrawals. She contacted crisis hotline [facility] and made a statement that was concerning to hotline expeller operator so paper was filled out and patient was brought in. Here in the ED she is compliant and does not appear to be in any distress or pain. She denies any HI or SI and states that she just said something out of frustration to the hotline expeller operator. I contacted Dr. Harris and told him about patient case and he came down to the ED to further evaluate. Below is note from Dr. Harris. Rescinded 96 hour hold, patient indicated that she was concerned about her having opiate withdrawal as patient last had methadone 2 days ago. Patient informed that methadone could not be given here and she had appropriate plan to go to Methadone center immediately today prior to it closing and asked for methadone as she continues to breast feed and concern about methadone withdrawal. Patient has appointment with methadone clinic in AM. Chart reviewed and patient discussed with midlevel. Agree with assessment and plan. Medical Records I reviewed the patient's medical records. Lab Data I reviewed the patient's lab results. 11/04/22 10:50 11/04/22 10:50 Laboratory Results WBC 14.1 10^3/uL (4.0-10.0) H 11/04/22 10:50 RBC 5.69 10^6/uL (4.1-5.3) H 11/04/22 10:50 Hgb 14.4 g/dL (11.5-15.3) 11/04/22 10:50 Hct 46.2 % (37.0-47.0) 11/04/22 10:50 MCV 81.2 fl (81-99) 11/04/22 10:50 MCH 25.3 pg (28.0-34.0) L 11/04/22 10:50 MCHC 31.2 g/dL (30.0-36.0) 11/04/22 10:50 RDW 15.1 % (12.1-15.1) 11/04/22 10:50 Plt Count 228 10^3/cmm (130-400) 11/04/22 10:50 MPV 9.6 fL (7.4-10.4) 11/04/22 10:50 Neut % (Auto) 76.6 % 11/04/22 10:50 Lymph % (Auto) 12.3 % 11/04/22 10:50 [place] % (Auto) 4.4 % 11/04/22 10:50 Eos % (Auto) 6.0 % 11/04/22 10:50 Baso % (Auto) 0.3 % 11/04/22 10:50 Neut # (Auto) 10.79 10^3/uL (1.8-7.7) H 11/04/22 10:50 Lymph # (Auto) 1.7 10^3/uL (0.8-4.8) 11/04/22 10:50 [place] # (Auto) 0.6 10^3/uL (0.2-0.9) 11/04/22 10:50 Eos # (Auto) 0.9 10^3/uL (0.0-0.8) H 11/04/22 10:50 Baso # (Auto) 0.0 10^3/uL (0.0-0.1) 11/04/22 10:50 Nucleated RBC % (auto) 0 % 11/04/22 10:50 Nucleated RBCs # 0.0 /100WBC 11/04/22 10:50 Sodium 138 mmol/L (136-145) 11/04/22 10:50 Potassium 4.4 mmol/L (3.5-5.1) 11/04/22 10:50 Chloride 102 mmol/L (98-107) 11/04/22 10:50 Carbon Dioxide 24 mmol/L (22-29) 11/04/22 10:50 Anion Gap 16.4 (5-19) 11/04/22 10:50 BUN 9 mg/dL (6-20) 11/04/22 10:50 Creatinine 0.6 mg/dL (0.5-0.9) 11/04/22 10:50 GFR Calculation 111.3 mL/min (90-130) 11/04/22 10:50 Glucose 109 mg/dL (65-115) 11/04/22 10:50 Calculated Osmolality 285 mOsm/kg (285-295) 11/04/22 10:50 Calcium 9.0 mg/dL (8.5-10.5) 11/04/22 10:50 Total Bilirubin 0.4 mg/dL (0.15-1.2) 11/04/22 10:50 AST 37 U/L (0-32) H 11/04/22 10:50 ALT 31 U/L (0-33) 11/04/22 10:50 Alkaline Phosphatase 77 U/L (35-105) 11/04/22 10:50 Total Protein 6.6 g/dL (6.6-8.7) 11/04/22 10:50 Albumin 3.9 g/dL (3.5-5.2) 11/04/22 10:50 Globulin 2.7 g/dL (1.3-4.6) 11/04/22 10:50 Urine Color Yellow (Yellow) 11/04/22 11:57 Urine Appearance Clear (CLEAR) 11/04/22 11:57 Urine pH 7 (5-7) 11/04/22 11:57 Ur Specific [place] 1.010 (1.005-1.030) 11/04/22 11:57 Urine Protein Neg (Negative) 11/04/22 11:57 Urine Glucose (UA) Norm (Normal) 11/04/22 11:57 Urine Ketones Negative (Negative) 11/04/22 11:57 Urine Blood Neg (Negative) 11/04/22 11:57 Urine Nitrate Negative (Negative) 11/04/22 11:57 Urine Bilirubin Neg (Negative) 11/04/22 11:57 Urine Urobilinogen 1 mg/dL (Negative) H 11/04/22 11:57 Ur Leukocyte Esterase Negative (Negative) 11/04/22 11:57 Salicylates < 0.3 mg/dL (3-10) L 11/04/22 10:50 Urine Opiates Screen Negative ng/mL (Negative) 11/04/22 11:57 Acetaminophen < 5.0 ug/mL (10-30) L 11/04/22 10:50 Ur Barbiturates Screen Negative ng/mL (Negative) 11/04/22 11:57 Ur Phencyclidine Scrn Negative ng/mL (Negative) 11/04/22 11:57 Ur Amphetamines Screen Negative ng/mL (Negative) 11/04/22 11:57 U Benzodiazepines Scrn Positive ng/mL (Negative) H 11/04/22 11:57 Urine Cocaine Screen Negative ng/mL (Negative) 11/04/22 11:57 U Marijuana (THC) Screen Positive ng/mL (Negative) H 11/04/22 11:57 Ethyl Alcohol < 10 mg/dL (0-10) 11/04/22 10:50 Discharge Plan Discharge Patient Disposition: Home Clinical Impression: Methadone dependence Condition: Stable Prescriptions: No Action multivitamin Tablet 1 tab PO DAILY celecoxib 200 mg capsule 200 mg PO DAILY PRN (Reason: Pain) omeprazole 40 mg capsule,delayed release(DR/EC) 40 mg PO DAILY PRN (Reason: Heartburn) propranolol 20 mg Tablet 20 mg PO TID PRN (Reason: Anxiety) 30 Days Qty: 90 1RF methadone tablet 70 mg PO DAILY prenat.vits,harsha,[id number] Tablet 1 tab PO DAILY Qty: 30 0RF ibuprofen 800 mg tablet 800 mg PO TID PRN (Reason: pain) Qty: 60 0RF Iron (ferrous sulfate) 325 mg (65 mg iron) tablet 325 mg PO BID Qty: 60 0RF acetaminophen 325 mg capsule 325 mg PO Q4H PRN (Reason: fever or pain) Qty: 60 0RF Discharge Orders: Discharge ED (Routine); Ordered 11/04/22 Ordered By: Fortino Morrell Referrals: Vogt,Monse, [employer] [Primary Care Provider] - Discharge Diet: Regular Discharge Activity: Increase activity as tolerated Activity Restrictions/Additional Instructions: Follow-up with PCP within the next week for reevaluation. Go to methadone clinic tomorrow for medication. Continue taking all medications as previously prescribed. Return to the ER or your medical provider if condition worsens. Please read and understand discharge instructions. Thank you for choosing [facility] for your healthcare needs today. Please realize this is an emergency room and that we are providing you with a medical screening exam and this may not be complete and all inclusive of all the testing and or work up that you may need to determine your ailment or severity of your illness. It is very important that you follow up as instructed or that you return to the Emergency Department should you have concerns or if your condition changes or worsens in any way. Coding Level of Care Code ED Inlayer Silver for Kanwal Diaz Exam Comprehensive
[2022-11-04 10:28] VITALS: BP 124/88; PULSE 102; RESP 20; O2SAT 94
[2022-11-04 11:06] LABS: Basophils % 0.3 %; Eosinophils # 0.9 10^3/uL (0.0-0.8); Hematocrit 46.2 % (37.0-47.0); Hemoglobin 14.4 g/dL (11.5-15.3); Lymphocytes # 1.7 10^3/uL (0.8-4.8); Lymphocytes % 12.3 %; Mean Corpuscular HGB Conc 31.2 g/dL (30.0-36.0); Mean Corpuscular Hemoglobin 25.3 pg (28.0-34.0); Mean Corpuscular Volume 81.2 fl (81-99); Mean Platelet Volume 9.6 fL (7.4-10.4); Monocytes # 0.6 10^3/uL (0.2-0.9); Monocytes % 4.4 %; Neutrophils # 10.79 10^3/uL (1.8-7.7); Neutrophils % 76.6 %; Nucleated Red Blood Cells % 0 %; Platelet Count 228 10^3/cmm (130-400); Red Blood Count 5.69 10^6/uL (4.1-5.3); Red Cell Distribution Width 15.1 % (12.1-15.1); White Blood Count 14.1 10^3/uL (4.0-10.0)
[2022-11-04 11:21] LABS: Alanine Aminotransferase 31 U/L (0-33); Albumin Level 3.9 g/dL (3.5-5.2); Alkaline Phosphatase 77 U/L (35-105); Blood Urea Nitrogen 9 mg/dL (6-20); Carbon Dioxide 24 mmol/L (22-29); Chloride 102 mmol/L (98-107); Globulin 2.7 g/dL (1.3-4.6); Glomerular Filtration Rate 111.3 mL/min (90-130); Glucose 109 mg/dL (65-115); Osmolality Calculated 285 mOsm/kg (285-295); Sodium 138 mmol/L (136-145); Total Bilirubin 0.4 mg/dL (0.15-1.2); Total Protein 6.6 g/dL (6.6-8.7)
[2022-11-04 11:22] LABS: Acetaminophen < 5.0 ug/mL (10-30); Alcohol Level < 10 mg/dL (0-10); Anion Gap 16.4 (5-19); Salicylate < 0.3 mg/dL (3-10)
[2022-11-04 11:23] LABS: Aspartate Amino Transferase 37 U/L (0-32); Potassium 4.4 mmol/L (3.5-5.1)
[2022-11-04 12:02] LABS: Add Urine Microscopic? NO; Charge for UA Resulting for Rev
[2022-11-04 12:05] LABS: Bilirubin Urine Neg (Negative); Blood Urine Neg (Negative); Glucose Urine UA Norm (Normal); Ketones Urine Negative (Negative); Leukocyte Esterase Urine Negative (Negative); Nitrate Urine Negative (Negative); Protein Urine Neg (Negative); Urine Appearance Clear (CLEAR); Urine Color Yellow (Yellow); Urobilinogen Urine 1 mg/dL (Negative); pH Urine 7 (5-7)
[2022-11-04 12:27] LABS: Amphetamines Screen Urine Negative (Negative); Barbiturates Screen Urine Negative (Negative); Benzodiazepines Screen Urine Positive (Negative); Cocaine Screen Urine Negative (Negative); Opiate Screen Urine Negative (Negative); PCP Screen Urine Negative (Negative); THC Screen Urine Positive (Negative)
[2022-11-04 12:51] VITALS: BP 124/88; PULSE 102; RESP 20; O2SAT 94
== END 2022-11-04 12:54 | disposition home or self-care (01) ==
PROVIDERS: Emergency Provider Physician Assistant; PCP Nurse Practitioner Family
DX: F11.20 Opioid dependence, uncomplicated (principal); Z87.891 Personal history of nicotine dependence; Z86.19 Personal history of other infectious and parasitic diseases
CPT/HCPCS: 36415; 80053; 80306; 80307; 81003; 85025; 99283

== ENCOUNTER 2023-01-31 18:47 | Emergency (ER) | payer MEDICAID, SELFPAY ==
[2023-01-31 18:51] VITALS: BP 121/81; PULSE 68; RESP 14; TEMP 36.6; O2SAT 96
--- NOTE | 2023-01-31 20:56 | ED_ITS ---
HPI - Dental/Oral General: Chief complaint: Dental/Oral Stated complaint: dental pain Time Seen by Provider: 01/31/23 20:28 History of Present Illness: Patient is a 37-year-old female comes to the ED with dental pain. Patient has been having dental pain for over a week. Pain is located in the left lower molars. She rates the pain currently a 9 out of 10. She saw her dentist last week and they put her on an antibiotic which she just finished taking. She was told to contact her dentist if symptoms get worse. Her symptoms got worse tonight and stated she would contact her dentist in the morning. Associated symptoms: Denies fever(s) or odynophagia Review of Systems Const: Denies: fever(s), chills or fatigue Eyes: Denies: change in vision or eye discomfort ENMT: Reports: dental pain; Denies: throat pain, odynophagia, nasal discharge or nasal congestion Card: Denies: chest pain, palpitations, edema, swelling of feet/ankles, dyspnea on exertion or orthopnea Resp: Denies: dyspnea, productive cough or non-productive cough GI: Denies: abdominal pain, nausea, vomiting, diarrhea, constipation or hematochezia : Denies: flank pain, dysuria or hematuria Musc: Denies: neck pain, back pain or extremity swelling Skin/Breast: Denies: rash or new lesions Neuro: Denies: headache(s), numbness in extremities or weakness in extremities [facility], [facility] PFSH: Medical History (Updated 01/31/23 @ 21:00 by NICOLE Quiles) Bradycardia Chronic shoulder pain Contraception management Dental abscess Gastroesophageal reflux in in third trimester Hepatitis C Diagnosed in 2012 during . History of hemorrhage Pain in a tooth or teeth Primary osteoarthritis, right shoulder Pruritus of in third trimester Tendinopathy of right rotator cuff Surgical History H/O abdominoplasty (~11/2015) H/O knee surgery R knee History of reduction of closed fracture (~02/25/14) Closed Reduction and percutaneous internal fixation with 7.0 cannulated screws times 2, 02/25/2014, by Dr Koch History of surgery on arm 8 surgeries on R arm with skin graft S/P breast augmentation with lift. Silicone gel implants. Family History Grandmother No problems noted. Father Diabetes Heart disease Hypercholesteremia Mother No problems noted. Grandfather Diabetes Paternal Heart disease Paternal Family/Other Diabetes Paternal side in general Heart disease Paternal Aunts, Maternal uncle Sister Hypertension Brother Hypertension Social History Smoking and tobacco status: former smoker Quit status (tobacco): has quit using tobacco Year quit tobacco: 2012 Former quit date comment: Was at most 1 pack/week. Started age 23 Alcohol intake: former Year of sobriety/quit date alcohol: 2012 Additional social history: Drug use: former- Marijuana as a teen Physical Exam Const: COMMON NORMALS: patient oriented x3 HENMT: COMMON NORMALS: normocephalic HEAD & SCALP: normocephalic MOUTH: Normal oral and palatal mucosa present THROAT: posterior oropharynx normal and uvula midline Neck/C-Spine: COMMON NORMALS: supple GENERAL: Yes normal visual inspection Resp: COMMON NORMALS: normal respiratory effort, No retractions, No use of accessory muscles and clear to auscultation bilaterally AUSCULTATION: clear to auscultation bilaterally Cardio: COMMON NORMALS: regular rate, regular rhythm, S1 normal heart sound present, S2 normal heart sound present, No gallops present (Cardio), No clicks present (Cardio), No murmurs present (Cardio) and Peripheral pulses 2+ throughout RATE: regular rate RHYTHM: regular rhythm HEART SOUNDS: S1 normal heart sound present and S2 normal heart sound present PERIPHERAL PULSES: Peripheral pulses 2+ throughout GI: COMMON NORMALS: Normal to inspection, nondistended, normoactive bowel sounds present, Soft to palpation, non-tender and no masses PALPATION: Yes Soft to palpation : COMMON NORMALS: Yes no CVA tenderness BLADDER/KIDNEY EXAM: Yes no CVA tenderness Back/Pelvis: COMMON NORMALS: no CVA tenderness Extremity: COMMON NORMALS: normal to inspection Neuro: COMMON NORMALS: patient oriented x3 GAIT: Yes Normal gait present Skin: GENERAL SKIN EXAM: dry skin Course Vital Signs: Vital signs: Vital Signs Temperature 97.8 F 01/31/23 18:51 Pulse Rate 88 01/31/23 21:16 Respiratory Rate 14 01/31/23 21:16 Blood Pressure 121/81 01/31/23 18:51 Pulse Oximetry 97 01/31/23 21:16 Oxygen Delivery Me thod 01/31/23 18:51 MDM - Dental/Oral Medical Decision Making Patient is a 37-year-old female comes to the ED with dental pain. Patient has been having dental pain for over a week. Pain is located in the left lower molars. She rates the pain currently a 9 out of 10. She saw her dentist last week and they put her on an antibiotic which she just finished taking. She was told to contact her dentist if symptoms get worse. Her symptoms got worse tonight and stated she would contact her dentist in the morning. Vitals are stable. Exam of patient is benign. Patient was given a dose of antibiotic and pain meds to help with symptoms here in the ED. She was stable for discharge home and sent home with a prescription for an antibiotic. Told to follow-up with her dentist as soon as possible for further treatment. Patient understood and agreed with plan. Discharge Plan Discharge Patient Disposition: Home Clinical Impression: Pain, dental Condition: Stable Prescriptions: New clindamycin HCl 150 mg capsule 300 mg PO Q6H 7 Days Qty: 56 0RF No Action mirtazapine [Remeron] 15 mg tablet 30 mg PO DAILY Qty: 60 0RF Rx Instructions: 1 tab for 14 days then take 2 tabs daily. amoxicillin 500 mg capsule 500 mg PO BID Qty: 30 1RF acetaminophen 650 mg tablet extended release 650 mg PO Q8H PRN (Reason: pain) Qty: 30 1RF multivitamin Tablet 1 tab PO DAILY omeprazole 40 mg capsule,delayed release(DR/EC) 40 mg PO DAILY PRN (Reason: Heartburn) methadone tablet 70 mg PO DAILY prenat.vits,harsha,wme-taqo-[id number] Tablet 1 tab PO DAILY Qty: 30 0RF Discharge Orders: Discharge ED (Routine); Ordered 01/31/23 Ordered By: Fortino Morrell Referrals: Foreign Garcia MD [Primary Care Provider] - Discharge Diet: Regular Discharge Activity: Increase activity as tolerated Activity Restrictions/Additional Instructions: Contact your dentist tomorrow to set up an appointment as soon as possible to treat dental pain. Take medications as prescribed. Continue taking at home Tylenol or ibuprofen per bottle instructions to help with pain. Return to the ER or your medical provider if condition worsens. Please read and understand discharge instructions. Thank you for choosing [facility] for your healthcare needs today. Please realize this is an emergency room and that we are providing you with a medical screening exam and this may not be complete and all inclusive of all the testing and or work up that you may need to determine your ailment or severity of your illness. It is very important that you follow up as instructed or that you return to the Emergency Department should you have concerns or if your condition changes or worsens in any way. Coding Level of Care Code ED Ic Design Engineer for Kanwal Diaz
[2023-01-31] MEDS: clindamycin 150 mg Capsule 300 MG PO (21:03)
[2023-01-31] MEDS: HYDROcodone-acetaminophen 7.5-325 mg Tablet 1 TAB PO ×2 (21:04→21:16)
[2023-01-31 21:16] VITALS: PULSE 88; RESP 14; O2SAT 97
== END 2023-01-31 21:16 | disposition home or self-care (01) ==
PROVIDERS: Emergency Provider Physician Assistant; PCP Family Medicine Adult Medicine
DX: K08.89 Other specified disorders of teeth and supporting structures (principal); Z79.891 Long term (current) use of opiate analgesic; Z86.19 Personal history of other infectious and parasitic diseases; Z87.891 Personal history of nicotine dependence
CPT/HCPCS: 99283